=== PATIENT | male | born 1940 | race Caucasian/White ===

== ENCOUNTER 2023-12-14 08:51 | Outpatient (AMB) | payer MEDICARE, BC, SELFPAY ==
--- NOTE | 2023-12-14 08:56 | MHC.OFFVIS ---
Intake Visit Reasons: VANDA/UTI, reported BPH Intake Note: Patient is present for VANDA/UTI, Reported BPH Urology Medication:NONE Antibiotic Allergy:NONE Blood Thinner:NONE Hvac Sheet Metal Installer Helper Required: No Allergies No Known Allergies Allergy (Verified 12/14/23 08:57) HPI Comments Details: Ted is a pleasant male. He is a patient of Dr. Moran. He seen for the following urologic conditions - lower urinary tract symptoms In September was receiving chemotherapy had become dehydrated Presented to hospital with UTI Enterococcus This was treated responded well to antibiotics Currently with effective voiding performance Would like refill of medications which have previously includes finasteride and solifenacin UA today clear Lower urinary tract symptoms Combination of urinary frequency with weakness of stream Has responded well to combination of medications including finasteride and solifenacin for many years Review of Systems Const Denies chills and Denies fever(s) Card Reports no additional complaints and Denies syncope Resp Denies cough GI Denies abdominal pain and Denies heartburn Reports as per HPI and Denies change in libido Neuro Denies syncope Psych Denies change in libido Endo Denies change in libido Physical Exam Const General: cooperative, healthy appearing, comfortable and no acute distress Orientation/consciousness: patient oriented x3 HEENT Face and sinus: Yes normal facial exam Mouth: moist mucous membranes Neck Neck: Yes normal visual inspection, Yes full ROM and Yes trachea midline Chest Chest palpation & inspection: normal inspection of the chest Resp Effort & Inspection: normal respiratory effort, able to speak in complete sentences and no respiratory distress GI Inspection: Yes normal to inspection Back/Spine/Pelvis Cervical Spine: normal cervical lordosis Thoracic/Lumbar Spine: thoracic and lumbar spine normal to inspection Skin General skin exam: no rashes or lesions noted Neuro General: patient oriented x3, gait normal, tone normal and moves all extremities Extrem General: Yes normal to inspection and Yes capillary refill normal Results AMB Urinalysis, Automated UA Leukoctes 0 Oumar/uL Last Edit by JOESPH Salvador on 12/14/23 09:23 UA Nitrite Negative Last Edit by JOESPH Salvador on 12/14/23 09:23 UA Urobilinogen 0.2 mg/dL Last Edit by JOESPH Salvador on 12/14/23 09:23 UA Protein 0 mg/dL Last Edit by JOESPH Salvador on 12/14/23 09:23 UA pH 5.5 Last Edit by JOESPH Salvaodr on 12/14/23 09:23 UA Blood 10 Jackson/uL Last Edit by JOESPH Salvador on 12/14/23 09:23 UA Specific [place] 1.020 Last Edit by JOESPH Salvador on 12/14/23 09:23 UA Ketone Negative Last Edit by JOESPH Salvador on 12/14/23 09:23 UA Bilirubin 0 mg/dL Last Edit by JOESPH Salvador on 12/14/23 09:23 UA Glucose 0 mg/dL Last Edit by JOESPH Salvador on 12/14/23 09:23 Results Reviewed Results Reviewed: Laboratory Last Values Urine pH (Auto) 5.5 12/14/23 09:23 Specific [place] (Auto) 1.020 12/14/23 09:23 Urine Protein (Auto) 0 mg/dL 12/14/23 09:23 Glucose (UA)(Auto) 0 mg/dL 12/14/23 09:23 Urine Ketones (Auto) Negative 12/14/23 09:23 Urine Blood (Auto) 10 Jackson/uL 12/14/23 09:23 Urine Nitrite (Auto) Negative 12/14/23 09:23 Urine Bilirubin (Auto) 0 mg/dL 12/14/23 09:23 Urine Urobilinogen (Auto) 0.2 mg/dL 12/14/23 09:23 Leukocyte Esterase (Auto) 0 Oumar/uL 12/14/23 09:23 Assessment & Plan Assessment & Plan (1) Complicated urinary tract infection: Code(s): N39.0 - Urinary tract infection, site not specified Category: Medical (2) Incomplete emptying of bladder due to benign prostatic hyperplasia: Code(s): N40.1 - Benign prostatic hyperplasia with lower urinary tract symptoms; R33.9 - Retention of urine, unspecified Category: Medical Plan Medications refilled Continue yearly review Orders: Orders AMB Urinalysis Automated 12/14/23 Z13.9 - Encounter for screening, unspecified Medications: New finasteride 5 mg PO DAILY 90 days 90 tabs 1RF N13.8 - Other obstructive and reflux uropathy, N40.1 - Benign prostatic hyperplasia with lower urinary tract symptoms, R33.9 - Retention of urine, unspecified solifenacin 5 mg PO DAILY 90 days 90 tabs 1RF N32.81 - Overactive bladder, N40.1 - Benign prostatic hyperplasia with lower urinary tract symptoms, R33.9 - Retention of urine, unspecified Patient Instructions: Imaging studies, laboratory and physical exam results were discussed and reviewed in detail. No major barriers to patient understanding were identified. An opportunity to ask questions regarding the treatment plan was provided. All questions were answered. The patient expressed understanding and agreement with the above treatment plan. The patient is aware they should contact our office by phone for worsening of their current condition or the appearance of new urologic symptoms. Compliance is encouraged with any medications and followup testing that is ordered. It is a privilege to participate in the urologic care of your patient. If you have any questions or concerns regarding treatment for the above conditions, or other urologic issues, please do not hesitate to contact me. The office telephone contact is [phone]. This note is constructed using voice recognition software. While every effort has been made to ensure accuracy dupligraph operator errors may have been included. Yours sincerely, Dr Terrence Patino MD, N[facility] - Urology Providers of Expert, Compassionate Care for the Genitourinary System Coding Level of Care Code Est Pt Level 4 (45299) Diagnoses Complicated urinary tract infection N39.0 Incomplete emptying of bladder due to benign prostatic hyperplasia N40.1; R33.9
== END 2023-12-14 10:02 | disposition home or self-care (01) ==
PROVIDERS: PCP Internal Medicine; Visit Provider Urology
DX: N39.0 Urinary tract infection, site not specified (principal); N40.1 Benign prostatic hyperplasia with lower urinary tract symptoms; R33.9 Retention of urine, unspecified
CPT/HCPCS: 99214

== ENCOUNTER → 2023-12-14 08:51 | Outpatient (BNVA) | payer MEDICARE, BC, SELFPAY | PROVIDERS: PCP Internal Medicine; Visit Provider Urology | DX: N40.1 Benign prostatic hyperplasia with lower urinary tract symptoms (principal); R33.9 Retention of urine, unspecified; N39.0 Urinary tract infection, site not specified | CPT/HCPCS: 81003; 99212 ==

== ENCOUNTER 2024-12-12 10:37 | Outpatient (AMB) | payer MEDICARE, BC, SELFPAY ==
--- OUTSIDE RECORDS SUMMARY | 2016-03-03 06:45 | XMS_ITS | Continuity of Care Document ---
Author Organization [facility] Address [address] [facility] [address] [place] [address] Phone Care Team Providers Care Consultant Rn Name Role Phone Mau Carrasco MD Unavailable Unavailable Allergies, Adverse Reactions, Alerts Substance Reaction Status Criticality Sulfa (Sulfonamide Antibiotics) Active No Information morphine Active No Information Medications Medication Instructions Dosage Effective Dates (start - stop) Status Comments Aspir-81 81 mg tablet,delayed release take 1 tablet by oral route every day - Active naproxen 250 mg tablet take 1 tablet by oral route 2 times every day with food 250 MG - Active Norvasc 5 mg tablet take 1 tablet by oral route every day 5 MG - Active Neosporin (asj-xxp-bqoll) 3.5 mg-400 unit-5,000 unit/gram top ointment applies OTC eye laura to eye lids 1 - 2 times daily OU - Active finasteride 5 mg tablet take 1 tablet by oral route every day 5 MG - Active omeprazole 10 mg capsule,delayed release take 1 capsule by oral route every day before a meal 10 MG - Active niacin ER 125 mg capsule,extended release take 1 capsule by oral route 3 times every day with meals - Active Norvasc 5 mg tablet take 1 tablet by oral route every day 5 MG - No Longer Active Artificial Tears eye drops PRN - No Longer Active Optiflex Complete 750 mg-400 mg oral pack - No Longer Active Procedures Procedure Date Offic/outpt E&m Estab Low-mod 6 JAN RNFL/HRT Ophth Serv: Med Exam; Comp Est 16 Photography Visual Field Comp Photography Visual Field Comp Offic/outpt E&m Estab Low-mod 5 Photography Ophth Serv: Med Exam; Comp Est 15 <content ID='ProcedureDescri ption_10' xmlns='urn:hl7-org:v3'>Visual Field Exam W/i&r; Exten</content> Scanning Computerized Ophthalmic; Optic Nerve Offic/outpt E&m Estab Low-mod 4 Ophth Serv: Med Exam; Comp Est 14 Determ Refractive State Offic/outpt E&m Estab Low-mod 3 E-RX Generated Via E-Prescribing 2012 Scanning Computerized Ophthalmic; Optic Nerve Optic Nerve Head Eval Ophth Serv: Med Exam; Comp Est 13 <content ID='ProcedureDescri ption_20' xmlns='urn:hl7-org:v3'>Visual Field Exam W/i&r; Exten</content> Scanning Computerized Ophthalmic; Optic Nerve Offic/outpt E&m Estab Low-mod 3 Dilat Lacrimal Punctum W/wo Ir 12 Dilat Lacrimal Punctum W/wo Ir 12 Ophth Serv: Med Exam; Interm E 12 E-RX Generated Via E[facility]Prescribing 2011 Ophth Serv: Med Exam; Interm E 11 Ophth Serv: Med Exam; Interm E 11 Optic Nerve Head Eval Scanning Computerized Ophthalmic; Optic Nerve Echo Exam Of Eye, Thickness Ophth Serv: Med Exam; Comp New 11 Gonioscopy (separt Proc) Optic Nerve Head Eval Determ Refractive State Advance Directives Directive Yes / No Effective Date File Name No Information Encounters Encounter Description Practice Location Reason(s) For Visit Diagnoses Date Provider Providers Copied on Encounter Offic/outpt E&m Estab Low-mod [facility], [address], [place], [place], [id number] , tel:[phone] [facility] Ocular hypertension (chief complaint)Ble pharitis (chief complaint)Dis torted vision (chief complaint) Age-related nuclear cataract, left eyeOther secondary cataract, right eyeBenign neoplasm of left choroidOcular HTN of bilateral eyeBlepharitis of eyelid 6 Danilo León. [address], [place], [place], [id number], [place]. tel:[phone] Referring Provider: Mau Tee, [address] [place] [address], [address] . tel:[phone] [facility], [address] [place] [address], [place], [place], [id number] , tel:[phone] [facility] Ocular Hypertension (chief complaint)cru sting (chief complaint) Ocular hypertension, bilateral[facility] nuclear cataract, left eyeOther secondary cataract, right eyeBenign neoplasm of left choroidBlephariti s of eyelid 6 Danilo León. [address], [id number], . tel:[phone] Referring Provider: Mau Tee, [address] [place] [address], [address] . tel:[phone] [facility], [address] [place] [address], [place], [place], [id number] , tel:[phone] [facility] Disc Photos Only (chief complaint) Ocular hypertension, left eye 6 Danilo León. [address], [id number], . tel:[phone] Referring Provider: Mau Tee, [address], [address] . tel:[phone] Offic/outpt E&m Estab Low-mod [facility], [address] [place] [address], [id number] , tel:[phone] [facility] Ocular Hypertension (chief complaint) Ocular hypertension, left eyeBlepharitis of eyelidAge-related nuclear cataract, left eyeBenign neoplasm of left choroid 5 Danilo León. [address] [place] [address], [address] [place] [address], . tel:[phone] Referring Provider: Mau Tee, [address] [place] [address], [address] [place] [address] . tel:[phone] [facility], [address] [place] [address], [id number] , tel:[phone] [facility] IOP check (chief complaint)itc napoleon (chief complaint) NS - Nuclear sclerosisOHT - Ocular hypertension 5 Sarah Tee. [address] [place] [address], [address] [place] [address], . tel:[phone] Referring Provider: Randal Warren, [address] [place] [address], [address] . tel:[phone] [facility], [address] [place] [address], [id number] , tel:[phone] [facility] No Information 5 Sarah Tee. [address] [place] [address], [address] [place] [address], . tel:[phone] Referring Provider: Randal Warren, [address] [place] [address], [address] . tel:[phone] Offic/outpt E&m Estab Low-mod [facility], [address] [place] [address], [address] [place] [address] , tel:[phone] [facility] No Information 4 Sarah Tee. [address], [place], [address] [place] [address], . tel:[phone] Referring Provider: Randal Warren, [address] [place] [address], [place], [address] [place] [address] . tel:[phone] [facility], [address] [place] [address], [place], [address] [place] [address] , tel:[phone] [facility] No Information 4 Sarah Tee. [address], [place], [address] [place] [address], . tel:[phone] [facility], [address] [place] [address], [place], [address] [place] [address] , tel:[phone] [facility] No Information 4 Sarah Tee. [address] [place] [address], [address] [place] [address], . tel:[phone] Referring Provider: Randal Warren, [address] [place] [address], [place], [address] [place] [address] . tel:[phone] Offic/outpt E&m Estab Low-mod [facility], [address] [place] [address], [place], [address] [place] [address] , tel:[phone] [facility] No Information 3 Sarah Tee. [address] [place] [address], [address] [place] [address], . tel:[phone] Referring Provider: Randal Warren, [address] [place] [address], [address] [place] [address] . tel:[phone] [facility], [address] [place] [address], [place], [address] [place] [address] , tel: [phone] [facility] No Information 3 Sarah Tee. [address], [place], [address] [place] [address], . tel:[phone] Referring Provider: Randal Warren, [address], [place], [address] [place] [address] . tel:[phone] [facility], [address], [place], [address] [place] [address] , tel: [phone] [facility] No Information 3 Sarah Tee. [address], [place], [address] [place] [address], . tel:[phone] Referring Provider: Randal Warren, [address], [place], [address] [place] [address] . tel:[phone] [facility], [address], [place], [address] [place] [address] , tel: [phone] [facility] No Information 3 Sarah Tee. [address], [place], [address] [place] [address], . tel:[phone] Referring Provider: Randal Warren, [address], [place], [address] [place] [address] . tel:[phone] Offic/outpt E&m Estab Low-mod [facility], [address], [place], [address] [place] [address] , tel: [phone] [facility] No Information 3 Sarah Tee. [address], [place], [address] [place] [address], . tel:[phone] Referring Provider: Randal Warren, [address], [place], [address] [place] [address] . tel:[phone] [facility], [address] , [place], [address] [place] [address] , tel: [phone] [facility] No Information 2 Sarah Tee. [address] [facility], [place], [address] [place] [address], . tel:[phone] Referring Provider: Randal Warren, [address] , [place], [address] [place] [address] . tel:[phone] [facility], [address] [facility], [place], [address] [place] [address] , tel: [phone] [facility] No Information 2 Sarah Tee. [address] [facility], [place], [address] [place] [address], . tel:[phone] Referring Provider: Randal Warren, [address] [facility], [place], [address] [place] [address] . tel:[phone] [facility], [address] [facility], [place], [address] [place] [address] , tel: [phone] [facility] No Information [address] [facility], [place], [address] [place] [address], . tel:[phone] Referring Provider: Randal Warren, [address] [facility], [place], [address] [place] [address] . tel:[phone] [facility], [address] [facility] [address] , [place], [address] [place] [address] , tel: [phone] [facility] No Information 1 Sarah Tee. [address], [place], [address] [place] [address], . tel:[phone] Referring Provider: Randal Warren, [address] [facility] [address] , [place], [address] . tel:[phone] Jose Manuel, [address] [facility] [address] , [place], [place], [id number] , tel:[phone] [facility] No Information 1 Sarah Tee. [address] [facility] [address] , [place], [place], [id number], . tel:[phone] Referring Provider: Hood Monahan, [address] [facility], [place], [address]. tel:[phone] Family History Family Member Type Diagnosis Age At Onset Mother Problem (finding) breast cancer (Cause Of ) Sister Problem (finding) degenerative disorder o f macula Father Problem (finding) chronic obstru ctive lung disease (Cause Of ) Payers Payer name Insurance type Covered constitution party ID Authoriza tion(s) Medicare [id number] [facility] [employer] [id number] Social History Type Description Quantity Date Captured Comments Alcohol Use Details 1 drink socially 6 Caffeine Use Details Unknown Tobacco Use Status Ex-cigarette smoker 016 Smoking Status Former smoker Smoking Tobacco Use Details Cigarette: Age Stopped: 37, Years Used 20 Cigarette: No Details Available Sex Male Chief Complaint And Reason For Visit From encounter dated '03/03/2016 10:45'. Ocular hypertension (chief complaint). Description: Patient presents for 8 month follow up secondary to ocular hypertension, OU with OCT RNFL today. He denies changes in vision since his last visit. He denies pain or discomfort. He denies family history of glaucoma. He used to be on dorzolamide perDr. Smith, but he is not using it anymore. Blepharitis (chief complaint). Description: The patient presents for 8 month follow up of Blepharitis, OU. He reports that he still wakes up with crusty eyelids. [place] He uses hot compresses in the mornings and rubs it off. He uses artificial tears to wash out a film that comes over his eyes. He also uses a saline wash to wash out his eyes. He denies pain or discomfort. Distorted vision (chief complaint). Description: The patient presents for evaluation of Distorted vision, OU. He reports that very rarely, he will see a wrinkle that goes across hisvision then it goes away. He reports that he has a headache but then he drinks fluid with some relief. He reports a history of an illistomy in 1979. Reason For Referral Reason For Referral No Information Plan Of Treatment Date Type Action Status Patient Education Learning About Ocular H ypertension completed History Of Present Illness Encounter Date Complaint History Of Prese nt Illness Distorted vision The patient pre sents for evaluation of Distorted vision, OU. He reports that very rarely, he will see a wrinkle that goes across his vision then it goes away. He reports that he has a headache but then he drinks fluid with some relief. He reports a history of an illistomy in 1979. Blepharitis The patient pres ents for 8 month follow up of Blepharitis, OU. He reports that he still wakes up with crusty eyelids. He [place] He uses hot compresses in the mornings and rubs it off. He uses artificial tears to wash out a film that comes over his eyes. He also uses a saline wash to wash out his eyes. He denies pain or discomfort. Ocular hypertension Patient pres ents for 8 month follow up secondary to ocular hypertension, OU with OCT RNFL today. He denies changes in vision since his last visit. He denies pain or discomfort. He denies family history of glaucoma. He used to be on dorzolamide per Dr. Smith, but he is not using it anymore. Ocular Hypertension The 74 year old male presents for 4 month evaluation of Ocular Hypertension in the left eye. 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 He is not currently using any eye drops other than an occasional tear drop. crusting The patient pres ents for evaluation of crusting in the right eye and left eye. The crustiness is worse at night when patient is watching television but it occurs all day. Patient also has mild itching. It is worse when patient is in [place] as opposed to up [place]. Washing with a soft toothbrush and warm water rinse helps. Disc Photos Only Ocular Hypertension The 74 year old male presents for a transfer of care from Dr. Smith secondary to Ocular Hypertension, left eye. The patient has no family history of glaucoma, not currently on any drops for glaucoma. Per patient, bad reaction to any drops with steroids in them, states that it caused a increase in pressure in the eyes. Reports that he is still having trouble with mucus on his eyelashes that comes and goes through out the day. Uses shampoo and warm water many times in the morning, but it keeps coming back. The mucus is sometimes like a white color. Some itching but not too bad, has history of hay fever. 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 HISTORY OF BLEPHARITIS FOR MANY YEARS. PATIENT STATES THAT HE CONTINUES TO CLEAN THE LIDS WITH SHAMPOO BUT NOT SURE IT IS HELPING. HVF AND OCT REVIEW itching The patient pres ents for evaluation of itching in the right eye and left eye. It started about 1-2 year(s) ago. It occurs intermittent. The symptom is no pattern. The condition is moderate. Known case of Blepharitis OU Functional Status Date Functional Assessmen t No Information Instructions Date Instruction Additional Infor arturo Return in 5-[address] Mau Carrasco for glaucoma check with an HVF and disc photos 1 week before. CPT code today 72341 Related to Ocular HTN of bilateral eye Impression/Plan - C ataracts noted left eye. At this time patient is asymptomatic, Monitor for vision changes. Recommend patient wear sunglasses with ultra edmond protection when outdoors. Continue with present prescription glasses, no change. Related to Age-related nuclear cataract, left eye Impression/Plan - S table at this time. No change from photos, continue to monitor. 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 Recommend patient wear sunglasses with ultra edmond protection when outdoors. Continue with present reading glasses, no change. Related to Other secondary cataract, right eye Impression/Plan - A pply hot compresses each night and scrub lashes after compress three times a week. Related to Blepharitis of eyelid Impression/Plan - Explained Ocular Hypertension to patient and the importance of follow up. No treatment necessary at this time. Related to Ocular HTN of bilateral eye Follow up - Return in 5-[address] Mau Carrasco for glaucoma check with an HVF and disc photos 1 week before. CPT code today 21097 Related to Ocular HTN of bilateral eye Return in 5-[address] Mau Carrasco for glaucoma check and OCT RNFL. 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 Related to Other secondary cataract, right eye Impression/Plan - A pply hot compresses each night and scrub lashes after compress three times a week. Gave patient name of Cliradex to try. Patient states in the past draining system has been occluded. He has had past irrigations of nasal lacrimal duct where very little fluid was swallowed. Gave patient name of Taiwo Barry [facility] if patient interested in further evaluation with possible DCR. Related to Blepharitis of eyelid Impression/Plan - C ataracts noted. At this time patient is asymptomatic, Monitor for vision changes. Related to Age-related nuclear cataract, left eye Impression/Plan - E xplained ocular hypertension and importance of follow up. No treatment necessary at this time. Related to Ocular hypertension, bilateral Follow up - Return in 5-[address] Mau Carrasco for glaucoma check and OCT RNFL. EEL cpt 68811 today Related to Ocular hypertension, bilateral Return in 5-[address] Mau Carrasco for glaucoma check with an HVF and disc photos 1 week before. 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 Mau Carrasco for glaucoma check with an HVF and disc photos 1 week before. EEL cpt 69909 today Related to Ocular hypertension, left eye Impression/Plan - A pply hot compresses each night and scrub lashes after compress three times a week. Start: Azasite 1 drop twice a day x 3 days then once a day x 5 days both eyes. Related to Blepharitis of eyelid Impression/Plan - C ataracts noted. At this time patient is asymptomatic, Monitor for vision changes. Related to Age-related nuclear cataract, left eye Impression/Plan - IOP ok today, high normal left eye. No treatment needed at this time. Related to Ocular hypertension, left eye - Review of recent O CT was unreliable. HVF appears to be stable and normal. In light, no need to treat. Related to OHT - Ocular hypertension - observe Related to NS - Nuclear sclerosis - Return in 7 months with Sarah JOHNSON, M B for Established Patient Short TC and gonio. Get cirrus OCT ou one week prior. Related to OHT - Ocular hypertension Assessments Type Assessment Date assessment Age-related nuclear cataract, le ft eye assessment Other secondary cataract, right eye assessment Benign neoplasm of left choroid assessment Ocular HTN of bilateral eye impression Ocular HTN of bilateral eye: H40 .053 impression Age-related nuclear cataract, le ft eye: H25.12 impression Other secondary cataract, right eye: H26.491 0 impression Benign neoplasm of left choroid: D31.32 assessment Blepharitis of eyelid 6 impression Blepharitis of eyelid: H01.009 O U Patient Care Teams Name Effective Dates (start - stop) Status Members No Information
--- OUTSIDE RECORDS SUMMARY | 2024-07-10 06:15 | XMS_ITS ---
Author Organization [facility] Address [address] [address] Care Team Providers Care Door Opener Name Role Phone Luisa JONHSON, Leila Primary Care Provider Arias Galvan Unavailable [phone] REASON FOR VISIT Ostomy follow up Encounters Encounter Location Date Provider Diagnosis [facility] [address] [place] [address] 07/10/2024 Arias Perez Plan Of Treatment No Information Progress Notes * Jose PALAFOXotisDOB: [birth year] (84 yo M)Acc No.[id number]:07/10/2024 Ostomy Follow-Up Visit Patient: Ted WEI Provider: Joseph Perez MD, MSc, CWSP :1940 A ge:83 Y S ex:Male Date:07/10/2024 Address:[address] [place], [place] [id number] Pcp:Leila Moran MD Subjective: * Chief Complaints: * 1 . Ostomy follow up. * Medical History: Objective: * Vitals: Assessment: Plan: * Treatment: * Billing Information: * Visit Code: * Procedure Codes: * Electronic signature of Kamilla Perez MD on 12/12/2024 at 11:28 AM EDT Sign off status: Pending * Provider: Joseph Perez MD, MSc, CWSP Date: 07/10/2024 Generated for Mauro reynolds/Corbin/eTransmitting on: 12/12/2024 11:28 AM EDT
--- OUTSIDE RECORDS SUMMARY | 2024-12-07 13:45 | XMS_ITS | Encounter Summary ---
Author Organization [facility] Address [address] [place] [address] Phone Care Team Providers Care Painter Aircraft Name Role Phone Leila Moran MD Primary Care Provider [phone] Pedro Paez MD Unavailable [phone] Alley Nguyen CNP Unavailable Reason for Visit * Reason Comments Exercise CR Assessment Encounter Details Date Type Department Care Team (Latest Contact Info) Description 12/07/2024 1:45 PM EDT Office Visit [facility] [address] [place] [address] Armand Fonseca MD [address] [facility], [address] [place] [address] [email or web address] Stable angina (Primary Dx) Social History Tobacco Use Types Packs/Day Years Used Date Smoking Tobacco: Former Cigarettes - 1979 Smokeless Tobacco: Never Alcohol Use Standard Drinks/Week Comments Yes 0 (1 standard drink = 0.6 oz pur e alcohol) Very rare social drinking Education Answer Date Recorded Are you interested in more education? Not on aletha e 08/14/2022 Are you concerned about learning? Not on file 08/14/2022 No 08/14/2022 No 08/14/2022 Food Answer Date Recorded Within the past 6 months we worried whether our food would run out before we got money to buy more. Never True 10/06/2023 Within the past 6 months the food we bought just didn't last and we didn't have enough money to get more. Never True Residential Stability Answer Date Recor ded What is your housing situation today? I have elizabeth sing 10/06/2023 How many times have you move d in the past 12 months? Zero (I did not move) 10/06/2023 Paying Utility Bills Answer Date Record ed Do you have trouble paying your heating or elect ricity bill? No 10/06/2023 Transportation Answer Date Recorded Has the lack of transportati on kept you from medical appointments or from getting medications? No 10/06/2023 Digital Access Answer Date Recorded No 10/06/2023 Yes 10/06/2023 Reliable internet access at home? Not on file 10/06/2023 Do you have a device (e.g., phone, tablet, computer) with a working camera? Yes 10/06/2023 Intimate Partner Violence Answer Date R ecorded Are you denied basic needs s uch as food, clothing, or medical care? No 04/12/2024 In the past 12 months have y ou been in a relationship with a person who hurts, threatens, or tries to control you? No 04/12/2024 Are you denied basic needs s uch as food, clothing, or medical care? No 04/12/2024 In the past 12 months have y ou been in a relationship with a person who hurts, threatens, or tries to control you? 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 Overall, this patient has completed 36 sessions. On the first session, this patient's weight was 185 Ibs, and most recently weights 182 Ibs. On the first exercise session, resting HR was 73 bpm, and most recently is 68 bpm. The resting BP on the first visit was 150/66 mm Hg, and is most recently 150/50 mm Hg. With exercise, the peak exercise HR was 89 and is most recently 82 bpm. The peak exercise BP on the first session was 140/60 mm Hg, and is most recently 138/60 mm Hg. The aerobic exercise prescription for this patient on the first session was 1.9 METs, and is most recently 3.9 METs. The resting monitor rhythm is SR w/ PACs. Overall, Ted did very well in our Cardiopulmonary Rehabilitation program. After he completes hiscardiac rehab sessions, he plans to continue his at home routine and plans to attend the gym. Ted states he continues to practice mindful eating, has a great social support, and practices his relaxation techniques o a regular basis. It was a pleasure working with Ted, we wish him all the best. If you have any questions, please call [facility] program at . documented in this encounter Plan of Treatment Upcoming Encounters Date Type Department Care Team (Late st Contact Info) Description 01/22/2025 3:30 PM EDT Office Visit [facility] [address] [facility] 3rd Floor, [address] [place] [address] Karie Seals PA-C [address] [place] [address] 02/15/2025 2:00 PM EDT Appointment [facility] [address] [place] [address] Pedro Paez MD [address] [place] [address] 02/15/2025 3:00 PM EDT Office Visit [facility] [address] [place] [address] Pedro Paez MD [address] [place] [address] [email or web address] documented as of this encounter Visit Diagnoses Diagnosis Stable angina- Primary Other and unspecified angina pectoris documented in this encounter Additional Health Concerns Assessment Noted Time PHQ-9 Depression Total Score: 3 06/08/19 25 2:22 PM EST documented as of this encounter Care Teams Painter Aircraft Relationship Specialty Start Date End Date Leila Moran MD [address] [place] [id number] PCP - General 04/22/17 Pedro Paez MD [address] [place] [address] Primary Oncologist Medical Oncology 07/08/20 Alley Nguyen CNP [address] [place] [address] Nurse Practitioner Oncology 06/18/21 documented as of this encounter Additional Source Comments The information contained in this document represents components of the legal health record. It is not the complete legal health record.[facility]
--- NOTE | 2024-12-12 10:59 | A.OFFVIS_ITS ---
Intake Visit Reasons: 1yr F/U Intake Note: Patient is present for: follow up Urology Medication:finasteride, solifenacin Blood Thinner:NONE today's pvr: 35 mls Meter Attendant Required: No Accompanied by: Self / Same As Patient Allergies No Known Allergies Allergy (Verified 12/12/24 11:00) HPI Comments Details: Ted is a pleasant male. He is a patient of Dr. Moran. He seen for the following urologic conditions - lower urinary tract symptoms Yearly follow-up Continues with combination finasteride and solifenacin Cut back finasteride to Wednesday, Wednesday, Wednesday Discussed solifenacin Still has some mild urinary urgency and frequency Trial 10 mg solifenacin March 2024 myocardial infarction with stenting September 2023 was receiving chemotherapy had become dehydrated Presented to hospital with UTI Enterococcus - responded to antibiotics Would like refill of medications which have previously includes finasteride and solifenacin Lower urinary tract symptoms Combination of urinary frequency with weakness of stream Has responded well to combination of medications including finasteride and solifenacin for many years Retired nurse Spent six-month in [place] Review of Systems Const Denies chills and Denies fever(s) Card Reports no additional complaints and Denies syncope Resp Denies cough GI Denies abdominal pain and Denies heartburn Reports as per HPI and Denies change in libido Neuro Denies syncope Psych Denies change in libido Endo Denies change in libido Physical Exam Const General: cooperative, healthy appearing, comfortable and no acute distress Orientation/consciousness: patient oriented x3 HEENT Face and sinus: Yes normal facial exam Mouth: moist mucous membranes Neck Neck: Yes normal visual inspection, Yes full ROM and Yes trachea midline Chest Chest palpation & inspection: normal inspection of the chest Resp Effort & Inspection: normal respiratory effort, able to speak in complete sentences and no respiratory distress GI Inspection: Yes normal to inspection Back/Spine/Pelvis Cervical Spine: normal cervical lordosis Thoracic/Lumbar Spine: thoracic and lumbar spine normal to inspection Skin General skin exam: no rashes or lesions noted Neuro General: patient oriented x3, gait normal, tone normal and moves all extremities Extrem General: Yes normal to inspection and Yes capillary refill normal Office Procedures Post Void Residual Post Residual Void Post Void Residual (PVR): 35 [id number] Void Residual by ultrasound Results AMB Urinalysis, Automated UA Leukoctes 0 Oumar/uL Last Edit by JOESPH Reeves on 12/12/24 11:21 UA Nitrite Negative Last Edit by Luzmaria Patrick [facility] on 12/12/24 11:21 UA Urobilinogen 0.2 mg/dL Last Edit by Luzmaria Patrick [facility] on 12/12/24 11:2 1 UA Protein 0 mg/dL Last Edit by Luzmaria [facility] on 12/12/24 11:21 UA pH 5.5 Last Edit by Luzmaria Patrick [facility] on 12/12/24 11:21 UA Blood 0 Jackson/uL Last Edit by Luzmaria Patrick [facility] on 12/12/24 11:21 UA Specific [place] 1.025 Last Edit by Luzmaria Patrick [facility] on 12/12/24 11: 21 UA Ketone Negative Last Edit by Luzmaria Patrick [facility] on 12/12/24 11:21 UA Bilirubin 0 mg/dL Last Edit by Luzmaira Patrick [facility] on 12/12/24 11:21 UA Glucose 0 mg/dL Last Edit by Luzmaria Patrick [facility] on 12/12/24 11:21 Results Reviewed Results Reviewed: Laboratory Last Values Urine pH (Auto) 5.5 12/12/24 11:20 Specific [place] (Auto) 1.025 12/12/24 11:20 Urine Protein (Auto) 0 mg/dL 12/12/24 11:20 Glucose (UA)(Auto) 0 mg/dL 12/12/24 11:20 Urine Ketones (Auto) Negative 12/12/24 11:20 Urine Blood (Auto) 0 Jackson/uL 12/12/24 11:20 Urine Nitrite (Auto) Negative 12/12/24 11:20 Urine Bilirubin (Auto) 0 mg/dL 12/12/24 11:20 Urine Urobilinogen (Auto) 0.2 mg/dL 12/12/24 11:20 Leukocyte Esterase (Auto) 0 Oumar/uL 12/12/24 11:20 Assessment & Plan Assessment & Plan (1) Incomplete emptying of bladder due to benign prostatic hyperplasia: Code(s): N40.1 - Benign prostatic hyperplasia with lower urinary tract symptoms; R33.9 - Retention of urine, unspecified Category: Medical (2) Bladder instability: Code(s): N32.89 - Other specified disorders of bladder Category: Medical Plan Twelve month follow-up Orders: Orders AMB Urinalysis Automated Today Z13.9 - Encounter for screening, unspecified AMB Post Void Residual by ultrasound Today N40.1 - Benign prostatic hyperplasia with lower urinary tract symptoms, R33.9 - Retention of urine, unspecified PSA,Total (Free>4and<10) Today N40.1 - Benign prostatic hyperplasia with lower urinary tract symptoms, R33.9 - Retention of urine, unspecified Medications: Changed From solifenacin 5 mg PO DAILY 90 days 90 tabs 1RF N32.81 - Overactive bladder To solifenacin 10 mg PO DAILY 30 tabs 0RF 30 days N32.81 - Overactive bladder Refilled finasteride 5 mg PO DAILY 90 tabs 1RF 90 days N13.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 While every effort has been made to ensure accuracy customer success intern errors may have been included. Imaging studies, laboratory and physical exam results were discussed and rev iewed in detail. No major barriers to patient understanding were identified. An opportunity to ask questions regarding the treatment plan was provided. All questions were answered. The patient expressed understanding and agreement with the above treatment plan. The patient is aware they should contact our office by phone for worsening of their current condition or the appearance of new urologic symptoms. Compliance is encouraged with any medications and followup testing that is ordered. It is a privilege to participate in the urologic care of your patient. If you have any questions or concerns regarding treatment for the above conditions, or other urologic issues, please do not hesitate to contact me. The office telephone contact is [phone]. Sincerely, Dr Terrence Patino MD, NIL[facility] - Urology Compassionate Specialist Care for the Genitourinary System Coding Level of Care Code Est Pt Level 4 (35446) Complex EM visit Add On G2211 Diagnoses Incomplete emptying of bladder due to benign prostatic hyperplasia N40.1; R33.9 Bladder instability N32.89 CPT Codes Post Residual Void - PVR CPT Code: 60121-Nkrt Void Residual by ultrasound ([id number])
--- OUTSIDE RECORDS SUMMARY | 2024-12-12 11:26 | XMS_ITS | Encounter Summary ---
Author Organization [facility] Address [address] [place] [address] [place] [address] Phone Care Team Providers Care Instant Potato Processing Supervisor Name Role Phone Leila Moran MD Primary Care Provider Pedro Paez MD Unavailable [phone] Alley Nguyen CNP Unavailable Encounter Details Date Type Department Care Team (Late st Contact Info) Description 06/24/2021 Procedure Pass [facility] [address] [place], [place] [id number] Social History Tobacco Use Types Packs/Day Years Used Date Smoking Tobacco: Former Cigarettes 1 968 - 1979 Smokeless Tobacco: Never Alcohol Use Standard Drinks/Week Comments Not Currently 0 (1 standard drink = 0.6 oz pur e alcohol) Sex and Gender Information Value Date Recorded Sex Assigned at Male 02/21/2019 3:23 PM EST Legal Sex Male 10:13 PM EDT Gender Identity Male 02/21/2019 3:23 PM EST Sexual Orientation Straight 02/21/2019 3: 23 PM EST documented as of this encounter Plan of Treatment Upcoming Encounters Date Type Department Care Team (Late st Contact Info) Description 01/22/2025 3:30 PM EDT Office Visit [facility] [address] [place] [address] [address] Floor, [address] [place] [address] Karie Seals PA-C [address] [place] [address] 02/15/2025 2:00 PM EDT Appointment [facility] [address] [place] [address] Pedro Paez MD [address] [place] [address] 02/15/2025 3:00 PM EDT Office Visit [facility] [address] [place] [address] Pedro Paez MD [address] [place] [phone] documented as of this encounter Visit Diagnoses Not on filedocumented in this encounter Additional Health Concerns Infection Onset Date Last Indicated Resolved Time CDiff-Risk 10/06/2023 10/06/2023 10/06/2023 5:43 PM EDT CoV-Risk 11/14/2024 11/14/2024 11/25/2024 1:21 AM EDT documented as of this encounter Care Teams Instant Potato Processing Supervisor Relationship Specialty Start Date End Date Leila Moran MD [address] [place] [phone] [email or web address] PCP - General 04/22/17 Pedro Paez MD [address] [place] [address] Primary Oncologist Medical Oncology 07/08/20 Alley Nguyen CNP [address] [place] [address] Nurse Practitioner Oncology 06/18/21 documented as of this encounter Additional Source Comments The information contained in this document represents components of the legal health record. It is not the complete legal health record.[facility]
--- OUTSIDE RECORDS SUMMARY | 2024-12-12 11:26 | XMS_ITS | Encounter Summary ---
Author Organization [facility] Address [address] [place] [id number] Phone Care Team Providers Care Glass Glazier Name Role Phone Leila Moran MD Primary Care Provider Pedro Paez MD Unavailable [phone] Alley Nguyen CNP Unavailable Encounter Details Date Type Department Care Team (Latest Contact Info) Description 12/07/2024 Plan of Care Documentation [facility] [address] [place] [address] Social History Tobacco Use Types Packs/Day Years Used Date Smoking Tobacco: Former Cigarettes 1 8 - 1979 Smokeless Tobacco: Never Alcohol Use [...] your housing situation today? I have elizabeth trevino 10/06/2023 How many times have you move [...] on file documented as of this encounter Miscellaneous Notes * Outpatient Rehab Plan of [place] - Carolina Hernandez - 12/07/2024 2:12 PM EDT Discharge Individualized Treatment Plan - Cardiac Rehabilitation Today is Ted's discharge ITP. Overall, this [...] [facility] at . Exercise Assessment ITP: Exit/Discharge Diagnosis: stable angina DASI Score: 23.45 (5.62 mets) Minutes/Week of Exercise : 120 Risk Stratification: Moderate Number of Telemetry Sessions: 36 Exercise Plan Exercise Goals Self monitor target heart rate range/RPE; Aerobic exercise 30+minutes more than or equal to 5 days/week; Begin home exercise program; Attend cardiac rehab session at least 2x/week; Increased MET level; Decreased RPE at sub-max exercise capacity; Verbalize understanding of safe exercise parameters Interventions Exercise Prescription Mode: NuStep; Recumbent Bicycle; Treadmill; Upper Body Ergometer Frequency: 2 days/week Duration: 30-40 mins Intensity: moderate Target HR Range: 30-40 beats above rest Target METs Range: 3-5 Resistance Training: Lower Extremities Exercise Education Home Exercise Education; Exercise Safety; Understanding RPE scale; Signs and symptoms to report; Attend formal education classes Exercise Discharge/Follow-Up Self monitor target heart rate range/RPE: Goal met Aerobic exercise 30+minutes >=5 days/week: Goal met (walking dog 2x per day, active through car work and yardwork, will plan to go to the gym) Resistance 20 minutes 2 days/week: Not met Continue home exercise program: Goal met Attended cardiac rehab session at least 2x/week: Goal met Increased MET level : Goal met (1.9 - 3.9) Verbalize understanding of safe exercise parameters: Goal met Nutrition Assessment Height: 165.1 cm (5' 5 ) Weight: 83.9 kg (185 lb) BMI: 30.79 Alcohol Intake: None Sodium restriction: No (does not monitor sodium but says he does not use a lot of salt) Caffeine Intake: 2 cups coffee/day, ice tea, some soda Rate Your Plate- Heart score: 5 (medieterranean diet) Nutrition Plan Nutrition Goals Sodium restriction (specify); Demonstrates adherence to the Therapeutic Lifestyle Change diet; Demonstrates adherence to DASH diet Interventions Individual consultation with bail bondsman; Monitor weight weekly; Provide guidelines per diet recommendation Education Medication education; DASH diet; Therapeutic Lifestyle Change diet; Attend formal education classes; Label reading Nutrition Discharge/Follow-Up Sodium restriction: Goal met Alcohol intake per guidelines: Goal met (none) Demonstrates adherence to the Therapeutic Lifestyle Change diet: Goal met (does not follow specificdiet, practices mindful eating) Psychosocial Assessment PHQ-9 Score: 3 [facility] Quality of Life: 22 Social Support: Yes (sister) Social Isolation: -- (to some degree. his only support person is his sister who visits him every wednesday to cook for him and do some house cleaning) Counseling: Past Counseling Helpful: Yes Currently taking psychiatric medications: Yes (prn Lorazepam) Sleep Routine: Rested (sleeps 1am-8am for many years and feels rested when he wakes up) Psychosocial Plan Psychosocial Goals Utilizes therapeutic coping skills; Reports increased social support; Identify barriers to change; Verbalizes awareness of the relationship between stress and CAD; Attends stress management class(es); Identifies individual stressors and stress warning signs; Practices regular relaxation technique 10-20 minutes 3-5 times/week minimum, working toward a daily practice; Improve or maintain mental health score(s) Interventions Review sleep hygiene skills; Provide one-on-one psychosocial support; Provide individual coaching/psychosocial support to patients to assist in lifestyle change Education Relaxation Strategies; Effective Communication Skills Psychosocial Discharge/Follow-up Utilizes therapeutic coping skills: Goal met (chores around the house, watching tv, antique car collection, car shows, sitting in the recliner) Reports increased social support: Goal met (lots of friends, family) Verbalizes feeling less stressed: Goal met (low stress) Verbalizes improved sleep: Goal met (falls asleep in recliner, gets up to go to bed after a few hours. feels rested in the morning) Hypertension Assessment Hypertension: Yes Blood pressure medication(s): Yes Self-monitor blood pressure: Yes Current smoker: No Overweight: Yes Stress: Yes Current BP: 120/60 Current HR: 68 Hypertension Plan Hypertension Goals Self-monitor home blood pressure and record readings; Compliant taking blood pressure medication asdirected; Goal SBP <130 mmHg and DBP <80mmHg; Verbalizes understanding of hypertension and plan to lower BP; Verbalizes awareness of relationship between stress and hypertension; Follow DASH diet guidelines; Reduce sodium intake to <2400 mg/day, ideally 1500 mg/day is desirable; Exercise minimum 5 times/week for 30 minutes or more per session at moderate intensity of physical activity Interventions Keep a weekly home blood pressure readings record; Monitor weight at home; Counseled in specific ways to better manage stress including regular relaxation techniques, cognitive skills, and effective communication skills Education Hypertension Education Hypertension education; Patient instructed on how to monitor home blood pressure; Attend classes onStress Management Hypertension Discharge/Follow-Up Self-monitor home blood pressure and record readings: Goal met Goal SBP <130 mmHg and DBP <80mmHg: Not met Medication Assessment Medication administration system: Yes Adheres to prescribed medication plan: Yes Has understanding of prescribed medications: Yes Carries a medication list: Yes Is the patient on Max dose high intensity statins: No (40mh Lipitor prescribed by MD) Medication Plan Medication Goals Patient has a medication administration system; Adheres to prescribed medication plan; Understands information about all prescribed medications; Carries a medication list Interventions Complete medication reconciliation with patient; Review system for taking medications; Provide updated medication list; Communicate with MD for medication adjustment Education Provide written information on specific medications Medication Discharge/Follow-Up Patient has a medication administration system : Goal met (uses pill box, works well) Adheres to prescribed medication plan: Goal met Understands information about all prescribed medications : Goal met Carries a medication list : Goal met PROVIDER ATTESTATION I have reviewed and agree with the Individual treatment Plan: goals/progress/outcomes. documented in this encounter Plan of Treatment Upcoming Encounters Date Type Department Care Team (Jennifer farah Contact Info) Description 01/22/2025 3:30 PM EDT Office Visit [facility] [address] [place] [address] [address] Floor, [address] [place] [address] Karie Seals PA-C [address] [place] [address] 02/15/2025 2:00 PM EDT Appointment [facility] [address] [place] [address] Pedro Paez MD [address] [place] [address] 02/15/2025 3:00 PM EDT Office Visit [facility] [address] [place] [address] Pedro Paez MD [address] [place] [phone] documented as of this encounter Visit Diagnoses Not on filedocumented in this encounter Additional Health Concerns Assessment Noted Time PHQ-9 Depression Total Score: 3 06/08/19 25 2:22 PM EST documented as of this encounter Care Teams Glass Glazier Relationship Specialty Start Date End Date Leila Moran MD [address] [place] [phone] PCP - General 04/22/17 Pedro Paez MD [address] [place] [phone] Primary Oncologist Medical Oncology 07/08/20 Alley Nguyen CNP [address] [place] [id number] Nurse Practitioner Oncology 06/18/21 documented as of this encounter Additional Source Comments The information contained in this document represents components of the legal health record. It is not the complete legal health record.[facility]
--- OUTSIDE RECORDS SUMMARY | 2024-12-12 11:26 | XMS_ITS | Clinical Summary ---
Author Organization [facility] Address [address] [place] [phone] Phone Care Team Providers Care Manager Product Marketing Name Role Phone Leila Moran MD Primary Care Provider [phone] Pedro Paez MD Unavailable [phone] Alley Nguyen CNP Unavailable Allergies Active Allergy Reactions Criticality Noted Date Comments Morphine Other (See Comments),Rash Low 11/19/2014 Hallucinations Delusions Other 12/29/2019 Steroids elevate his glaucoma Sulfa (Sulfonamide Antibiotics) Nausea and/or Vomiting 08/02/2014 Medications niacin 500 MG CR capsule Take 1 capsule by mouth daily. Active finasteride (PROSCAR) 5 mg tablet Take 1 tablet by mouth daily. 1 Active solifenacin (VESICARE) 10 MG tablet Take 1 tablet by mouth every morning. 3 Active omeprazole (PRILOSEC) 20 mg TbEC Take 20 mg by mouth daily before breakfast. Active aspirin 81 MG EC tablet Take 81 mg by mouth daily. Active atorvastatin (LIPITOR) 40 MG tablet Take 40 mg by mouth nightly at bedtime. 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 4 Active Additional Information Patient taking differently: 0.5 mgOral Nightly PRN, severe nausea not relieved by zofran; insomnia; anxiety, Reported on 05/15/2024 metoprolol succinate (TOPROL-XL) 50 MG 24 hr tablet Take 1 tablet (50 mg total) by mouth daily. Takes along with 25 mg daily for 75 mg altogether 90 tablet 3 5 Active metoprolol succinate (TOPROL-XL) 25 MG 24 hr tablet Take 1 tablet (25 mg total) by mouth every morning. Takes along with 50 mg daily for 75 mg altogether 90 tablet 3 5 Active clopidogrel (PLAVIX) 75 mg tablet Take 1 tablet (75 mg total) by mouth daily. 90 tablet 3 5 Active amLODIPine (NORVASC) 5 MG tabletIndications :Essential hypertension TAKE 1 TABLET (5 MG TOTAL) BY MOUTH DAILY. 90 tablet 3 5 Active Active Problems Patient Care Coordination No te Formatting of this note migh t be different from the original. Height 164cm no shoes 09/08/22 CALL PT SISTER IF YOU CANNOT REACH THE PATIENT Problem Noted Date Diagnosed Date Chest pain 04/12/2024 Assessment & Plan (04/12/2024 7:04 PM EST): History of coronary disease, history of prior MN and angioplasty in [place], follows as an outpatient with Dr. Fonseca. Previously with stable angina, now becoming more severe. ED workup shows mild proBNP elevation 869, age appropriate, troponins elevated but flat 43 and 45. EKG notable for anteroseptal inferior infarct pattern, question of lateral ischemia with nonspecific ST-T changes small depressions V4- V6 with small anterior elevations. Case was discussed with cardiology with plan for observation on telemetry tonight with stress testing in the morning. Cardiology consult will be arranged. Defer to cardiology if additional imaging is needed. Will monitor I's and O's, electrolytes and renal function, daily weights. Conditional EKG ordered for any chest pain. Nitropaste ordered with patient hypertensive in the ED. Hypomagnesemia 10/07/2023 Assessment & Plan (10/07/2023 1:37 PM EDT): Magnesium 1.6 on admission drifted down to 1.5 today. Old records reveal the patient has had low normal magnesium since 2020 was down to 1.3 Likely dietary deficiency. -Replenished with magnesium times IV x 1. -Start oral magnesium 400 mg daily - Repeat magnesium levels in AM. VANDA (acute kidney injury) 10/06/2023 Assessment & Plan (10/07/2023 1:31 PM EDT): Pt presented to the ED on 10/04 sent by his oncologist for abnormal labs, signed out AMA to take care of his dog and then returned 10/05. - Cr peak 2.8, now trending down - Pt endorses recent increased output from ileostomy over the past 1-2 weeks, likely dehydration contributing to VANDA. - ARB also contributing pt was started on Losartan 50 mg daily 04/2023, now discontinued - On prior labs baseline Cr 0.9-1.2 Creatinine improved to 1.8 today Renal ultrasound no hydronephrosis or renal atrophy. Nonobstructing left renal calculi. Bilateral renal cysts. -Continue gentle IV hydration -Repeat renal labs in a.m. Hyperkalemia 10/06/2023 Assessment & Plan (10/07/2023 1:32 PM EDT): K 6.6, pt sent to the ED received Lokelma and 1 L 0.9% NS. Revealed normal sinus rhythm. Telemetry with normal sinus rhythm no arrhythmias. - Repeat K improved to 5.8, and has now normalized to 4.1 with IV fluids and discontinuation of losartan. -Continue off of losartan. -Repeat electrolytes in a.m. -DC telemetry Coronary artery disease 10/06/2023 Assessment & Plan (05/15/2024 4:59 PM EST): cardiac catheter[place]09[place] [place] [facility] [place], normal LV function EF 65% Multivessel CAD, see full report for details, circumflex has a prior stent proximal with an 85% in-stent restenosis which was thought to be symptom culprit treated with a 3.0 scoring balloon to 14 mmHg with multiple inflations with final angiographic result found excellent. Recommended medical management for his other diffuse disease. Continued on aspirin, clopidogrel, metoprolol and amlodipine with consideration to uptitrate antianginals if remains symptomatic. Continued on statin. Has not used any sublingual nitro. Patient is actually doing quite well at this time. He has really done well since his beta-jose was increased approximately 1 month ago after [facility] hospitalization, current dose 75 mg daily. However, since he is noticing some more brain fog over the past 1 months since this change, am hesitant to increase this further today. Alternatively, discussed increasing amlodipine. Patient prefers to stay with current meds and doses as he did not have any recurrent angina over the past month or so with only 1 isolated episode today. Asked patient to follow-up in 2 months. Assessment & Plan (04/12/2024 7:01 PM EST): History of CAD as above. Follows with [facility] cardiology, Dr. Fonseca. Previously diagnosed with stable angina. Details of his prior interventions unclear, per notes from Dr. Fonseca he has been trying to obtain these records. Plan for nuclear stress testing in the morning. I will order this so that doses can be arranged. Continuing him on his baseline medical regimen with aspirin, Plavix, statin. Metoprolol held for stress testing. Caffeine hold also needed in the morning. Patient occasionally uses melatonin which I would recommend be discontinued in the setting of coronary disease. Assessment & Plan (10/07/2023 1:35 PM EDT): Stable. Asymptomatic S/P MN 04/2023 in [place] with cardiac stents - Continue ASA/Plavix - Continue statin - Continue Atenolol UTI (urinary tract infection) 10/06/2023 Assessment & Plan (10/07/2023 1:34 PM EDT): Pt with 2-3 days of cloudy urine, dysuria. Cefadroxil by his PCP however did not get a chance to take medication before presentation to the ED. 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 Assessment & Plan (09/10/2020 4:45 PM EDT): -hemoglobin drifted down to 7.8 from 11.8. -Repeat H&H later today improved to 8.3/25.2. -Patient with no chest pain, shortness of breath or signs and symptoms of anemia. -Ileostomy now with brown fecal material no archana blood. -Given unremarkable EGD and evidence of decreased bleeding and with improved H&H will hold on transfusion. -Repeat CBC in a.m. GI bleed 09/09/2020 Assessment & Plan (09/23/2021 12:11 PM EDT): No recurrent bleeding and not on anticoagulation Assessment & Plan (09/10/2020 4:43 PM EDT): -History ileostomy -With multiple episodes of dark red stool in the ostomy bag. Stool now rust brown-colored. -No blood extravasation seen on CTA of the abdomen pelvis -GI consulted endoscopy performed today 09/10/2020 and was unremarkable. Recommendation is for outpatient video capsule endoscopy to more fully evaluate the small bowel. Bleeding thought to be from patient's stoma. -Continue PPI Hodgkin lymphoma 06/27/2020 Assessment & Plan (10/06/2023 3:13 PM EDT): Follows with Dr. Paez, stable, no evidence of disease progression Assessment & Plan (09/10/2020 4:50 PM EDT): -Hospitalist team discussed with Dr. Paez -There has been a question if the Adriamycin and the chemo regimen (ABVD doxorubicin, bleomycin, vinblastine, dacarbazine) be causing typhlitis leading to some bleeding but Dr. Paez feels that this is beyond the scope of that and that the patient should be evaluated with GI with endoscopy -He received his last treatment was 09/04 and he received udenyca 09/05 -Formal oncology consult appreciated-patient to follow-up with oncology as an outpatient to determine further chemotherapy moving forward. -Blood counts: white blood cell count was elevated due to recent pegfilgrastim now down to 5.4 -Platelet count is normal at 162,000 -Continue to monitor Chronic obstructive pulmonary disease 02/01/2020 Assessment & Plan (04/12/2024 7:01 PM EST): Documented history of COPD but not on any routine medications for lung disease. No signs or symptoms of acute exacerbation. Can make albuterol inhaler available if needed. MAHAN (dyspnea on exertion) 12/29/2019 Assessment & Plan (09/23/2021 12:11 PM EDT): Breathing is about at its baseline Assessment & Plan (07/29/2021 8:17 AM EDT): I have ordered him a stress test for this A-fib 04/19/2016 Overview (09/09/2020): episode of this saw Dr Ortiz-no reoccurance Assessment & Plan (10/06/2023 6:26 PM EDT): Pt had been told he had afib as per Dr. Cid: there is no documentation of this - Pt with frequent PACs on holter monitor but no afib. - Pt with possible transient episode of afib many years ago no reoccurrence, telemetry shows PAC and pt currently in NSR - Continue home Atenolol Assessment & Plan (01/28/2022 1:57 PM EDT): Well controlled and in sinus rhythm today. He has been asymptomatic completely. He has declined anticoagulation because of his history of bleeding. Assessment & Plan (09/23/2021 12:10 PM EDT): He has not had any recurrent atrial fibrillation but does have a lot of PACs. We are starting metoprolol 50 mg once a day and will reevaluate in 3 months Assessment & Plan (07/29/2021 8:16 AM EDT): He said that this happened in the remote past with no recurrences I am going to order him a loop recorder if he has any I will have to consider oral anticoagulation Assessment & Plan (09/10/2020 4:46 PM EDT): -Rates well controlled. - not on chronic anticoagulation - HOLD aspirin for now given acute bleeding Glaucoma 04/19/2016 Assessment & Plan (09/09/2020 3:02 PM EDT): Continue latanoprost and timolol S/P colectomy 04/19/1979 Overview (04/12/2024): pancolitis Assessment & Plan (04/12/2024 7:01 PM EST): Patient normally manages his ostomy on his own, not due for change for several days. If needed ostomy nurse consult could be arranged. Essential hypertension Assessment & Plan (04/12/2024 7:01 PM EST): Patient is on metoprolol succinate and amlodipine for his blood pressure management. Blood pressure was mildly elevated on arrival with some ED related anxiety. Would recommend continuation of lorazepam nightly to help with sleep. Additionally metoprolol had to be held for stress testing in the morning. Continuing amlodipine with hold parameters. Defer medication adjustments to cardiology. Assessment & Plan (01/28/2022 1:56 PM EDT): Blood pressure is at goal today. No change to current therapy continue current medications. Assessment & Plan (09/23/2021 12:11 PM EDT): Poorly controlled hopefully the metoprolol will take care of this Assessment & Plan (07/29/2021 8:16 AM EDT): Well-controlled Assessment & Plan (09/10/2020 4:48 PM EDT): -Blood pressures well controlled and stable. Hypotensive readings noted today were during endoscopy. -No further symptoms of lightheadedness as amlodipine was held. -Amlodipine restarted this afternoon. -Monitor blood pressures and clinical symptoms. -Of note patient is also on tamsulosin which will affect his blood pressure. History of prostate cancer Overview (09/09/2020): low grade being followed conservatively Assessment & Plan (09/10/2020 4:50 PM EDT): -Has some mild difficulty with stream due to prostate cancer which is being followed. No documented urinary retention. -Continue his home medication finasteride and tamsulosin (added hold parameters for hypotension for the tamsulosin) GERD (gastroesophageal reflux disease) Assessment & Plan (04/12/2024 7:01 PM EST): Continued on daily pantoprazole. Encounters Date Type Department Care Team Description 12/07/2024 1:45 PM EDT Office Visit [facility] Cardiopulmonary Rehabilitation [address] [place] [phone] Armand Fonseca MD Stable angina (Primary Dx) 12/07/2024 Plan of Care Documentation [facility] Card[facility] Rehabilitation [address] [place] [address] 12/05/2024 1:45 PM EDT Office Visit [facility] Cardiopulmonary Rehabilitation [address] [place] [address] Armand Fonseca MD Stable angina (Primary Dx) 11/30/2024 1:45 PM EDT Office Visit [facility] Cardiopulmonary [address] [address] Armand Fonseca MD Stable angina (Primary Dx) 11/23/2024 1:45 PM EDT Office Visit [facility] Cardiopulmonary [address] [address] Armand Fonseca MD Stable angina (Primary Dx) 11/23/2024 Plan of Care Documentation [facility] Cardiopulmonary [address] [address] 11/21/2024 1:45 PM EDT Office Visit [facility] Cardiopulmonary [address] [address] Armand Fonseca MD Stable angina (Primary Dx) 11/16/2024 3:00 PM EDT Office Visit [facility] Cardiopulmonary [address] [address] Armand Fonseca MD Stable angina (Primary Dx) 11/14/2024 7:34 PM EDT - 11/14/2024 11:59 PM EDT Hospital Encounter [facility] Specimen Processing [address] [place] [address] Indira Villafana PA Discharge Disposition: Home or Self Care 11/14/2024 3:29 PM EDT - 11/14/2024 7:33 PM EDT Hospital Encounter [address] [address] Indira Villafana PA Discharge Disposition: Home or Self Care 11/14/2024 3:07 PM EDT - 11/14/2024 3:28 PM EDT Hospital Encounter [facility] Laboratory [address] [place] [address] Indira Villafana PA Discharge Disposition: Home or Self Care 11/14/2024 Transcribe Orders [facility] Specimen Processing [address] [place] [phone] Indira Villafana PA Fatigue, unspecified type (Primary Dx); Cough, unspecified type 11/14/2024 Ancillary Orders [address] [address] Indira Villafana PA Cough, unspecified type (Primary Dx) 11/09/2024 1:45 PM EDT Office Visit [facility] Cardiopulmonary [address] [address] Armand Fonseca MD Stable angina (Primary Dx) 11/07/2024 1:45 PM EDT Office Visit [facility] Cardiopulmonary Rehabilitation [address] [place] [address] Armand Fonseca MD Stable angina (Primary Dx) 11/03/2024 Refill [facility] [address], [address] [place] [address] Armand Fonseca MD Medication Refill 11/02/2024 1:45 PM EDT Office Visit [facility] Cardiopulmonary Rehabilitation [address] [place] [phone] Armand Fonseca MD Stable angina (Primary Dx) 10/31/2024 1:45 PM EDT Office Visit [facility] Cardiopulmonary [address] [address] Armand Fonseca MD Stable angina (Primary Dx) 10/26/2024 Plan of Care Documentation [facility] Cardiopulmonary [address] [address] 10/26/2024 Documentation [facility] Cardiopulmonary [address] [address] Carolina Hernandez CR Assessment 10/24/2024 1:45 PM EDT Office Visit [facility] Cardiopulmonary [address] [address] Armand Fonseca MD Stable angina (Primary Dx) 10/17/2024 1:45 PM EDT Office Visit [facility] Cardiopulmonary Rehabilitation [address] [place] [address] Armand Fonseca MD Stable angina (Primary Dx) 10/12/2024 1:45 PM EDT Office Visit [facility] Cardiopulmonary Rehabilitation [address] [place] [address] Armand Fonseca MD Stable angina (Primary Dx) 10/10/2024 1:45 PM EDT Office Visit [facility] Cardiopulmonary Rehabilitation [address] [place] [address] Armand Fonseca MD Stable angina (Primary Dx) 10/04/2024 12:10 PM EDT - 10/04/2024 11:59 PM EDT Hospital Encounter [facility] [address] [place] [address] Armand Fonseca MD Discharge Disposition: Home or Self Care 10/04/2024 Ancillary Orders [facility] [address], [address] [place] [address] Armand Fonseca MD Essential hypertension (Primary Dx); Coronary artery disease involving [place] coronary artery of [place] heart without angina pectoris; MAHAN (dyspnea on exertion) 10/03/2024 1:45 PM EDT Office Visit [facility] Cardiopulmonary Rehabilitation [address] [place] [address] Armand Fonseca MD Stable angina (Primary Dx) 09/28/2024 Plan of Care Documentation [facility] Cardiopulmonary Rehabilitation [address] [place] [address] 09/28/2024 Documentation [facility] Cardiopulmonary [address] [address] Carolina Hernandez CR Assessment 09/26/2024 1:45 PM EDT Office Visit [facility] Cardiopulmonary Rehabilitation [address] [place] [phone] Armand Fonseca MD Stable angina (Primary Dx) 09/21/2024 1:45 PM EDT Office Visit [facility] Cardiopulmonary Rehabilitation [address] [place] [address] Armand Fonseca MD Stable angina (Primary Dx) 09/19/2024 1:45 PM EDT Office Visit [facility] Cardiopulmonary Rehabilitation [address] [place] [address] Armand Fonseca MD Stable angina (Primary Dx) 09/12/2024 1:45 PM EDT Office Visit [facility] Cardiopulmonary Rehabilitation [address] [place] [address] Armand Fonseca MD Stable angina (Primary Dx) from Last 3 Months Immunizations Immunization Administration Dates Next Due COVID-19 (Pre-02/08) Pfizer Vaccine, mRNA, PF 06/18/2020,05/28/2020 Influenza High-Dose Trivalen t Preservative Free IM 01/03/2020,01/23/2019,02/10/2018,2016 Pneumococcal conjugate PCV13 11/19/2014 Family History Medical History Relation Comments COPD Father Breast cancer Mother Relation Status Comments Father Mother age 64 Social History Tobacco Use Types Packs/Day Years Used Date Smoking Tobacco: Former Cigarettes 1 1979 Smokeless Tobacco: Never Tobacco Cessation:Counseling Given: Not Answered Alcohol Use Standard Drinks/Week Comments Yes 0 [...] Not on file No t on file Last Filed Vital Signs Vital Sign Reading Time Taken Comments Blood Pressure 136/72 08/21/2024 2:48 PM EDT Pulse 86 08/21/2024 2:48 PM EDT Temperature 36.6 C (97.8 F) 08/17/2024 3:34 PM EDT Respiratory Rate 16 06/08/2024 2:21 PM EST Oxygen Saturation 98% 08/21/2024 2:48 PM EDT Inhaled Oxygen Concentration - - Weight 85.7 kg (189 lb) 08/21/2024 2:48 PM EDT Height 165.1 cm (5' 5 ) 08/21/2024 2:48 PM EDT Body Mass Index 31.45 08/21/2024 2:48 PM EDT Plan of Treatment Upcoming Encounters Date Type Department Care Team (Late st Contact Info) Description 01/22/2025 3:30 PM EDT Office Visit [facility] [address] [place] [address] [address], [address] [place] [address] Karie Seals PA-C [address] [place] [address] 02/15/2025 2:00 PM EDT Appointment [facility] [address] [place] [address] Pedro Paez MD [address] [place] [address] 02/15/2025 3:00 PM EDT Office Visit [facility] [address] [place] [address] Pedro Paez MD [address] [place] [phone] [email or web address] Health Maintenance Due Date Last Done Comments Adult Td,Tdap Booster 1940 ZOSTER VACCINES (1 of 2) 1957 RSV VACCINE (1 - 1-dose 75+ series) 2013 PNEUMOCOCCAL VACCINES (50+ years) (2 of 2 - PPSV23) 01/14/2015 11/19/2014 COVID-19 VACCINE (3 - 2023-2 5 season) 2023 06/18/2020, 05/28/2020 DEPRESSION SCREENING 06/08/2025 06/08/2024 HEPATITIS A VACCINES Aged Out No long er eligible based on patient's age to complete this topic HIB VACCINES Aged Out No longer eligi ble based on patient's age to complete this topic MENINGOCOCCAL VACCINES (ACWY) Aged Out No longer eligible based on patient's age to complete this topic MENINGOCOCCAL VACCINES (B) Aged Out N o longer eligible based on patient's age to complete this topic Medical Devices Implanted Type Area Instrumentation Tech Device Identifier Shelf Expiration Date Model / Serial / Lot Port Dignity 6.6fr Infusion Mid Size Attachable Silicone Filled Suture Hole - [id number] Implanted:Qty: 1 on 07/31/2020 by Garth Unger MD at [facility] Right: Chest Wall MED COMP [id number] 12/17/2024 [id number] / / [id number] Procedures Procedure Name Priority Date/Time Associated Diagnosis Comments COVID-19 RT PCR Routine 11/14/2024 7:36 PM EDT COVID-19 PCR ORDER Routine 11/14/2024 7: 36 PM EDT Fatigue, unspecified type Cough, unspecified type XR CHEST PA AND LATERAL 2 VIEWS Routine 11/14/2024 3:38 PM EDT Cough, unspecified type URINE SEDIMENT Routine 11/14/2024 3:28 PM EDT URINALYSIS W/REFLEX URINE CULTURE Routine 11/14/2024 3:28 PM EDT Fatigue, unspecified type MAGNESIUM Routine 11/14/2024 3:12 PM EDT Fatigue, unspecified type BASIC METABOLIC PANEL Routine 11/14/2024 3:12 PM EDT Fatigue, unspecified type TSH WITH REFLEX Routine 11/14/2024 3:12 PM EDT Fatigue, unspecified type CBC Routine 11/14/2024 3:12 PM EDT Fatigue, unspecified type NT-PROBNP Routine 11/14/2024 3:12 PM EDT Fatigue, unspecified type SEDIMENTATION RATE (ESR) Routine 11/14/2024 3:12 PM EDT Nodular sclerosis Hodgkin lymphoma of intra-abdominal lymph nodes LYME SCREEN WITH REFLEX TO WESTERN BLOT, BLOOD Routine 11/14/2024 3:12 PM EDT Fatigue, unspecified type US LOWER EXTREMITY ARTERIES (ROCK) PHYSIO COMPLETE BILAT Routine 10/04/2024 12:58 PM EDT Essential hypertension Coronary artery disease involving [place] coronary artery of [place] heart without angina pectoris MAHAN (dyspnea on exertion) US LOWER EXTREMITY ARTERIES DUPLEX COMPLETE (BILATERAL) Routine 10/04/2024 12:58 PM EDT Essential hypertension Coronary artery disease involving [place] coronary artery of [place] heart without angina pectoris MAHAN (dyspnea on exertion) from Last 3 Months Results * COVID-19 RT-PCR (11/14/2024 7:36 PM EDT) SPECIMEN SOURCE/DESCRIPTION [facility]AL [facility] SARS-CoV 2 (COVID-19) PCR Negative Negative [facility] Comment: SARS-CoV-2 not detected Negative results do not preclude SARS-CoV-2 infection and should not be used as the sole basis for patient management decisions. Negative results must be combined with clinical observations, patient history, and epidemiological information. This test has been authorized by the FDA under an Emergency Use Authorization (EUA) for use by authorized laboratories. 11/14/2024 7:36 PM EDT 11/14/2024 7:38 PM EDT Indira Blume PA BODY FLUIDS AND STOOLS ORDERABL ES Final Result Performing Organization Address City/[facility]/ZIP Co de Phone Number [address] [address] * COVID-19 PCR Order (11/14/2024 7:36 PM EDT) COVID Testing Status SWAB [facility] Symptomatic? YES [facility] Other 11/14/2024 7:36 PM EDT 11/14/2024 7:38 PM EDT [facility] PA BODY FLUIDS AND STOOLS ORDERABL ES Final Result Performing Organization Address [facility] [facility] Co de Phone Number [address] [address] * XR CHEST PA AND LATERAL 2 VIEWS (11/14/2024 3:38 PM EDT) Anatomical Region Laterality Modality Chest Computed Radiogr aphy 11/14/2024 4:09 PM EDT Impressions 11/14/2024 4:10 PM EDT No acute abnormality. Narrative 11/14/2024 4:10 PM EDT XR CHEST PA AND LATERAL 2 VIEWS Referring clinician's provided indication for this examination in Epic: Pain COMPARISON: XR CHEST 1 VIEW FINDINGS: Devices/Tubes/Lines: None. Lungs: Normal. The lungs are clear. No focal consolidation or pulmonary edema. Pleura: Normal. No pleural effusion or pneumothorax. Heart/Mediastinum: Normal heart and mediastinum. Bones/Soft Tissues: Normal. No significant skeletal abnormality. Procedure Note Glen Amador MD - 11/14/2024 XR CHEST PA AND LATERAL 2 VIEWS Referring clinician's provided indication for this examination in Epic:Pain COMPARISON: XR CHEST 1 VIEW FINDINGS: Devices/Tubes/Lines: None. Lungs: Normal. The lungs are clear. No focal consolidation or pulmonaryedema. Pleura: Normal. No pleural effusion or pneumothorax. Heart/Mediastinum: Normal heart and mediastinum. Bones/Soft Tissues: Normal. No significant skeletal abnormality. IMPRESSION: No acute abnormality. Indira FREITAS IMG XR CHEST Final Result * (ABNORMAL) Urinalysis w/reflex Urine Culture (11/14/2024 3:28 PM EDT) COLOR Yellow Yellow [facility] CLARITY Clear [facility] GLUCOSE Negative Negative [facility] BILI Negative Negative [facility] KETONES Negative Negative [facility] SPECIFIC GRAVITY 1.015 1.005 - 1.030 [facility] BLOOD 1+(A) Negative [facility] PH 5.5 5.0 - 8.0 [facility] Protein-UA Negative Negative [facility] NITRITE Negative Negative [facility] Leukocyte esterase, ur Negative Negative [facility] Urine (Urine) 11/14/2024 3:2 8 PM EDT 11/14/2024 3:29 PM EDT Indira FREITAS URINE ORDERABLES Final Result [address] [address] * (ABNORMAL) Urine sediment (11/14/2024 3:28 PM EDT) WBC 0-4(A) NONE SEEN /hpf [facility] RBC 0-2(A) NONE SEEN /hpf [facility] URINE EPITHELIAL 0-4(A) NONE SEEN [facility] MUCUS 1+(A) NONE SEEN /hpf [facility] BACTERIA NONE SEEN NONE SEEN /hpf [facility] 11/14/2024 3:28 PM EDT 11/14/2024 3:29 PM EDT us Indira FREITAS URINE ORDERABLES Final Result Performing Organization Address [facility] Co de Phone Number [address] [address] * Lyme Screen with Reflex to Immunoblot, Blood (11/14/2024 3:12 PM EDT) Lyme AB IgG Negative Negative [facility] Lyme AB IgM Negative Negative [facility] Blood 11/14/2024 3:12 PM EDT 11/14/2024 3:15 PM EDT us Indira FREITAS LAB BLOOD ORDERABLES Final Resu lt Performing Organization Address [facility] Co de Phone Number [address] [address] * TSH with reflex (11/14/2024 3:12 PM EDT) TSH 2.09 0.27 - 4.20 uIU/mL [facility] Blood 11/14/2024 3:12 PM EDT 11/14/2024 3:15 PM EDT us Indira FREITAS LAB BLOOD ORDERABLES Final Resu lt Performing Organization Address [facility] Co de Phone Number [address] [address] * Sedimentation rate (ESR) (11/14/2024 3:12 PM EDT) ESR 16 0 - 20 mm/h [facility] Blood 11/14/2024 3:12 PM EDT 11/14/2024 3:15 PM EDT us Pedro Paez MD LAB BLOOD ORDERABLES Final Res ult Performing Organization Address [facility] Co de Phone Number [address] [address] * (ABNORMAL) CBC (11/14/2024 3:12 PM EDT) WBC 8.36 4.00 - 11.00 K/uL [facility] RBC 4.88 4.50 - 5.90 M/uL [facility] HGB 14.6 13.5 - 17.5 g/dL [facility] HCT 45.7 41.0 - 53.0 % [facility] PLT 288 150 - 450 K/uL [facility] MCV 93.6 80.0 - 100.0 fL [facility] MCH 29.9 27.0 - 31.0 pg [facility] MCHC 31.9(L) 32.0 - 36.0 g/dL [facility] RDW 14.2 11.5 - 14.5 % [facility] MPV 10.2 8.4 - 12.0 fL [facility] NRBC 0.00 0.00 /100 WBCs [facility] ABSOLUTE NRBC 0.00 0.00 K/uL [facility] Blood 11/14/2024 3:12 PM EDT 11/14/2024 3:15 PM EDT Indira Ledy [place] LAB BLOOD ORDERABLES Final Resu lt Performing Organization Address [facility]/ZIP Co de Phone Number [address] [address] * (ABNORMAL) NT-proBNP (11/14/2024 3:12 PM EDT) NT-PROBNP 627(H) 0 - 450 pg/mL [facility] Blood 11/14/2024 3:12 PM EDT 11/14/2024 3:15 PM EDT [facility] Ledy [place] LAB BLOOD ORDERABLES Final Resu lt Performing Organization Address City/[facility]/ZIP Co de Phone Number [address] [address] * Magnesium (11/14/2024 3:12 PM EDT) MAGNESIUM 1.8 1.6 - 2.6 mg/dL [facility] Blood 11/14/2024 3:12 PM EDT 11/14/2024 3:15 PM EDT us Indira Villafana PA LAB BLOOD ORDERABLES Final Resu lt [address] [address] * (ABNORMAL) Basic metabolic panel (11/14/2024 3:12 PM EDT) SODIUM 140 133 - 146 mmol/L [facility] CHLORIDE 104 96 - 108 mmol/L [facility] POTASSIUM 4.9 3.3 - 5.1 mmol/L [facility] CO2 23 21 - 35 mmol/L [facility] BUN 17 6 - 19 mg/dL [facility] CREATININE 1.30 0.5 - 1.5 mg/dL [facility] GLUCOSE 89 70 - 99 mg/dL [facility] CALCIUM 9.5 8.4 - 10.3 mg/dL [facility] EGFR 54(L) >59 mL/min/1.7 3m2 [facility] Comment:Estimated glomerular filtration rate calculated using the CKD-EPI refit equation. ANION GAP 18 10 - 20 mmol/L [facility] Blood 11/14/2024 3:12 PM EDT 11/14/2024 3:15 PM EDT Indira Villafana PA LAB BLOOD ORDERABLES Final Resu lt [address] [address] * US Lower Extremity Arteries Duplex Complete (Bilateral) (10/04/2024 12:58 PM EDT) Height 165 cm Weight 86 kg Anatomical Region Laterality Modality Ultrasound Narrative 10/04/2024 1:38 PM EDT Impression: Right: Biphasic flow throughout. Mid SFA stenosis 20-49% Distal Posterior Tibial stenosis >50% Left: Biphasic flow throughout. No focal stenosis noted. Lower Arterial Duplex Left Left Side: External Iliac Artery: Peak Velocity: 112 cm/s Phasicity: biphasic Plaque: calcified Stenosis: <20 % Common Femoral Artery: Peak Velocity: 106 cm/s Phasicity: biphasic Plaque: calcified Stenosis: <20 % Profunda Artery: Peak Velocity: 95 cm/s Phasicity: biphasic Plaque: calcified Stenosis: <20 % Proximal Femoral Artery: Peak Velocity: 162 cm/s Phasicity: biphasic Plaque: calcified Stenosis: <20 % Mid Femoral Artery: Peak Velocity: 138 cm/s Phasicity: biphasic Plaque: calcified Stenosis: <20 % Distal Femoral Artery: Peak Velocity: 64 cm/s Phasicity: biphasic Plaque: calcified Stenosis: <20 % Popliteal Artery: Peak Velocity: 60 cm/s Phasicity: biphasic Plaque: calcified Stenosis: <20 % Posterior Tibial Artery: Peak Velocity: 25 cm/s Phasicity: biphasic Anterior Tibial Artery: Peak Velocity: 115 cm/s Phasicity: biphasic Lower Arterial Duplex Right Right Side: External Iliac Artery: Peak Velocity: 154 cm/s Phasicity: biphasic Plaque: calcified Stenosis: <20 % Common Femoral Artery: Peak Velocity: 161 cm/s Phasicity: biphasic Plaque: calcified Stenosis: <20 % Profunda Artery: Peak Velocity: 176 cm/s Phasicity: biphasic Plaque: calcified Stenosis: <20 % Proximal Femoral Artery: Peak Velocity: 117 cm/s Phasicity: biphasic Plaque: calcified Stenosis: <20 % Mid Femoral Artery: Peak Velocity: 221 cm/s Phasicity: biphasic Plaque: calcified Stenosis: 20-49 % Distal Femoral Artery: Peak Velocity: 58 cm/s Phasicity: biphasic Plaque: calcified Stenosis: <20 % Popliteal Artery: Peak Velocity: 47 cm/s Phasicity: biphasic Plaque: calcified Stenosis: <20 % Posterior Tibial Artery: Peak Velocity: 354 cm/s Phasicity: biphasic Stenosis: >50% Anterior Tibial Artery: Peak Velocity: 26 cm/s Phasicity: biphasic us Armand Fonseca MD CV US VASCULAR Final Resul t * US Lower Extremity Arteries (ROCK) Physio Complete Bilat (10/04/2024 12:58 PM EDT) Arm 150 mmHg Posterior Tibial 100 mmHg Posterior Tibial Index 0.67 Dorsalis Pedis 120 mmHg Dorsalis Pedis Index 0.80 Arm 150 mmHg Posterior Tibial 120 mmHg Posterior Tibial Index 0.80 Dorsalis Pedis 150 mmHg Dorsalis Pedis Index 1.00 Anatomical Region Laterality Modality Ultrasound Narrative 10/04/2024 1:39 PM EDT Impression: Right Side: Ankle/Brachial index on the right side is 0.8.; waveform is monophasic. Left Side: Ankle/Brachial index on the left side is 1.0; waveform is multiphasic. Armand Fonseca MD [facility] VASCULAR Final Resul t from Last 3 Months Insurance MEDICARE PART A & B [facility] MEDICARE PART A & B [facility] MEDICARE [facility] A & B [facility] MEDICARE [facility] A & B [facility] MEDICARE PART A & B [facility] MEDICARE PART A & B [facility] MEDICARE PART A & B [facility] MEDICARE PART A & B [facility] MEDICARE PART A & B [facility] Advance Directives For more information, please contact: [phone] (9AM - 5PM [facility], Wednesday-Wednesday) Documents on File Type Date Recorded Patient Assistant Spa Manager Expl anation Healthcare Proxy 07/18/2020 HCP & Advan ce Directive 07/18/2020 * Full Code (Latest Code Status on File) Date Activated Date Inactivated Comments 04/12/2024 7:00 PM Question Answer Comments Code Status Confirmed With: Patient * Full Code Date Activated Date Inactivated Comments 10/06/2023 2:46 PM 04/12/2024 7:00 PM Question Answer Comments Code Status Confirmed With: Patient * Full Code Date Activated Date Inactivated Comments 09/09/2020 3:01 PM 10/06/2023 2:46 PM Question Answer Comments Code Status Confirmed With: Patient Healthcare Agents on File Name Relationship Healthcare Agent Relationship Communication Flavia Gonzalez Sister Alternate Healthcare Agent (Proxy form on file) Armand Thayer Other .Primary He alth Care Agent (Proxy form on file) Care Teams Manager Product Marketing Relationship Specialty Start Date End Date Leila Moran MD [address] [place] [phone] [email or web address] PCP - General 04/22/17 Pedro Paez MD [address] [place] [phone] [email or web address] Primary Oncologist Medical Oncology 07/08/20 Alley Nguyen CNP [address] [place] [address] [email or web address] Nurse Practitioner Oncology 06/18/21 Additional Source Comments The information contained in this document represents components of the legal health record. It is not the complete legal health record.[facility]
--- OUTSIDE RECORDS SUMMARY | 2024-12-12 11:26 | XMS_ITS ---
Author Organization [facility] Address [address] [place] [address] [place] [address] Phone Care Team Providers Care Irrigation System Installer Name Role Phone Leila Moran MD Primary Care Provider Pedro Paez MD Unavailable [phone] Alley Nguyen CNP Unavailable Active Problems Patient Care Coordination No te Formatting of this note migh t be different from the original. Height 164cm no shoes 09/08/22 CALL PT SISTER IF YOU CANNOT REACH THE PATIENT Problem Noted Date Diagnosed Date Chest pain 04/12/2024 Assessment & Plan (04/12/2024 7:04 PM EST): History of coronary disease, history of prior NH and angioplasty in [place], follows as an outpatient with Dr. Fonseca. [...] catheterization completed 05/09/[address] Fonseca at [facility]- Normal LVEDP, normal LV function EF 65% [...] (10/07/2023 1:35 PM EDT): Stable. Asymptomatic S/P NH 04/2023 in [place] with cardiac stents - Continue ASA/Plavix - [...] 7:01 PM EST): Continued on daily pantoprazole. 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 Past Treatment and Therapy Plans TREATMENT PLAN Plan Name Start Date Discontinue Date Treatment Medications Discontinue Reason Plan Provider Cycles ABVD-DOX ORUBICIN /BLEOMYC IN/VINBL ASTINE/D ACARBAZI NE 07/31/2020 01/30/2021 bleomycin (BLENOXANE) IVPBdacarbazine (DTIC) IVPBDOXOrubicin (ADRIAMYCIN)vinBLA Brionna (VELBAN) a. Therapy Complete Pedro Paez MD 6 of 6 cycles started Lifetime Dose Tracking * Chemical Lifetime Dose Automatic Entry Manual Entr y doxorubicin 272.523 mg/m2 (511 mg) 272.523 mg/m2 (511 mg) 0 mg/m2 (0 mg) bleomycin 76.8 Units 76.8 Units 0 Units Invasive Cardiology Radiation Exposure 2 mGy 0 mGy 2 mGy 2. DAP 61.95 uGy-m2 0 uGy-m2 61.95 uGy-m2
--- OUTSIDE RECORDS SUMMARY | 2024-12-12 11:27 | XMS_ITS | Encounter Summary ---
Author Organization [facility] Address [address] [place] [address] Phone Care Team Providers Care Tax Advisor Name Role Phone Leila Moran MD Primary Care Provider [phone] Pedro Paez MD Unavailable [phone] Alley Nguyen CNP Unavailable Encounter Details Date Type Department Care Team (Late st Contact Info) Description 09/04/[address] [facility] [address] [phone] Leila Moran MD [address] [place] [address] [phone] [email or web address] Low magnesium level (Primary Dx); Low vitamin B12 level; Fatigue, unspecified type; Hypertension, unspecified type Social History Tobacco Use Types Packs/Day Years Used Date Smoking Tobacco: Former Cigarettes 1979 Smokeless Tobacco: Never Alcohol Use Standard [...] on file documented as of this encounter Plan of Treatment Upcoming Encounters Date Type Department Care Team ([facility] st Contact Info) Description 01/22/2025 3:30 PM EDT [facility] [address] [facility] [place] [address] Karie Seals PA-C [address] [place] [address] [email or web address] 02/15/2025 2:00 PM EDT Appointment [facility] [address] [place] [address] Pedro Paez MD [address] [place] [address] 02/15/2025 3:00 PM EDT Office Visit [facility] at [address] [address] Pedro Paez MD [address] [place] [address] [email or web address] documented as of this encounter Results * Magnesium (09/04/2024 10:16 AM EDT) MAGNESIUM 1.7 1.6 - 2.6 mg/dL [facility] Blood 09/04/2024 10:1 6 AM EDT 09/04/2024 10:44 AM EDT Leila Moran MD LAB BLOOD ORDERABLES Final Result [address] [address] * Vitamin B12 (09/04/2024 10:16 AM EDT) VITAMIN B12 437 232 - 1,245 pg/mL [facility] Blood 09/04/2024 10:1 6 AM EDT 09/04/2024 10:44 AM EDT Leila Moran MD LAB BLOOD ORDERABLES Final Result [address] [address] * TSH (09/04/2024 10:16 AM EDT) TSH 1.80 0.27 - 4.20 uIU/mL [facility] Blood 09/04/2024 10:1 6 AM EDT 09/04/2024 10:44 AM EDT Leial Moran MD LAB BLOOD ORDERABLES Final Result [address] [address] documented in this encounter Visit Diagnoses Diagnosis Low magnesium level- Primary Low vitamin B12 level Fatigue, unspecified type Hypertension, unspecified type documented in this encounter Additional Health Concerns Infection Onset Date Last Indicated Resolved Time CoV-Risk 11/14/2024 11/14/2024 11/25/2024 1:21 AM EDT Assessment Noted Time PHQ-9 Depression Total Score: 3 06/08/19 25 2:22 PM EST documented as of this encounter Care Teams Tax Advisor Relationship Specialty Start Date End Date Leila Moran MD [address] [place] [address] PCP - General 04/22/17 Pedro Paez MD [address] [place] [address] Primary Oncologist Medical Oncology 07/08/20 Alley Nguyen CNP [address] [place] [address] Nurse Practitioner Oncology 06/18/21 documented as of this encounter Additional Source Comments The information contained in this document represents components of the legal health record. It is not the complete legal health record.[facility]
--- OUTSIDE RECORDS SUMMARY | 2024-12-12 11:27 | XMS_ITS | Encounter Summary ---
Author Organization [facility] Address [address] [place] [address] [place] [address] Phone Care Team Providers Care Jr. Systems Administrator Name Role Phone Leila Moran MD Primary Care Provider Pedro Paez MD Unavailable [phone] Alley Nguyen CNP Unavailable Encounter Details Date Type Department Care Team (Late st Contact Info) Description 12/24/2021 Procedure Pass Non-Invasive Cardiology [address] [place] [address] Social History Tobacco Use Types Packs/Day Years [...] Description 01/22/2025 3:30 PM EDT Office Visit [facility] [address], [address] [place] [address] Karie Seals PA-C [address] [place] [address] 02/15/2025 2:00 PM EDT Appointment [facility] [address] [place] [address] Pedro Paez MD [address] [place] [address] 02/15/2025 3:00 PM EDT Office Visit [facility] [address] [place] [address] Pedro Paez MD [address] [place] [address] documented as of this encounter Visit Diagnoses Not on filedocumented in this encounter Additional Health Concerns Infection Onset Date Last Indicated Resolved Time CDiff-Risk 10/06/2023 10/06/2023 10/06/2023 5:43 PM EDT CoV-Risk 11/14/2024 11/14/2024 11/25/2024 1:21 AM EDT documented as of this encounter Care Teams Jr. Systems Administrator Relationship Specialty Start Date End Date Leila Moran MD [address] [place] [address] PCP - General 04/22/17 Pedro Paez MD [address] [place] [address] Primary Oncologist Medical Oncology 07/08/20 Alley Nguyen CNP [address] [place] [address] Nurse Practitioner Oncology 06/18/21 documented as of this encounter Additional Source Comments The information contained in this document represents components of the legal health record. It is not the complete legal health record.[facility]
--- OUTSIDE RECORDS SUMMARY | 2024-12-12 11:27 | XMS_ITS | Encounter Summary ---
Author Organization [facility] Address [address] [place] [address] [place] [address] Phone Care Team Providers Care Crane Rigger Name Role Phone Leila Moran MD Primary Care Provider Pedro Paez MD Unavailable [phone] Alley Nguyen CNP Unavailable Encounter Details Date Type Department Care Team (Late st Contact Info) Description 10/01/2021 Procedure Pass [facility], [address] [address] Social History Tobacco Use Types Packs/Day Years Used Date Smoking Tobacco: Former Cigarettes 1 969 - 1587 Smokeless Tobacco: Never Alcohol Use Standard Drinks/Week [...] Description 01/22/2025 3:30 PM EDT Office Visit [facility] [address] [place] [address] [address]rd Floor, [address] [place] [address] Karie Seals PA-C [address] [place] [address] 02/15/2025 2:00 PM EDT Appointment [facility] [address] [place] [address] Pedro Paez MD [address] [place] [address] 02/15/2025 3:00 PM EDT Office Visit [facility] [address] [place] [address] Pedro Paez MD [address] [place] [address] documented as of this encounter Visit Diagnoses Not on filedocumented in this encounter Additional Health Concerns Infection Onset Date Last Indicated Resolved Time CDiff-Risk 10/06/2023 10/06/2023 10/06/2023 5:43 PM EDT CoV-Risk 11/14/2024 11/14/2024 11/25/2024 1:21 AM EDT documented as of this encounter Care Teams Crane Rigger Relationship Specialty Start Date End Date Leila Moran MD [address] [place] [address] PCP - General 04/22/17 Pedro Paez MD [address] [place] [address] Primary Oncologist Medical Oncology 07/08/20 Alley Nguyen CNP [address] [place] [address] Nurse Practitioner Oncology 06/18/21 documented as of this encounter Additional Source Comments The information contained in this document represents components of the legal health record. It is not the complete legal health record.[facility]
--- OUTSIDE RECORDS SUMMARY | 2024-12-12 11:27 | XMS_ITS | Encounter Summary ---
Author Organization [facility] Address [address] [place] [address] Phone Care Team Providers Care Fuel Operator Name Role Phone Leila Moran MD Primary Care Provider Pedro Paez MD Unavailable [phone] Alley Nguyen CNP Unavailable Encounter Details Date Type Department Care Team (Late st Contact Info) Description 01/01/2022 Transcribe Orders [facility] Laboratory [address] [id number] Leila Moran MD [address] [place] [address] [email or web address] Chronic kidney disease, unspecified CKD stage (Primary Dx); Screening for prostate cancer Social History Tobacco Use Types Packs/Day Years [...] Description 01/22/2025 3:30 PM EDT Office Visit [facility] [address]rd Floor, [address] [place] [address] Karie Seals PA-C [address] [place] [address] 02/15/2025 2:00 PM EDT Appointment [facility] [address] [place] [address] Pedro Paez MD [address] [place] [address] 02/15/2025 3:00 PM EDT Office Visit [facility] at [address] [address] Pedro Paez MD [address] [place] [address] documented as of this encounter Results * (ABNORMAL) PSA (screening) (01/01/2022 10:55 AM EDT) Pathologist [facility] PSA 4.45(H) 0 - 4.00 ng/mL [facility] Blood 01/01/2022 10:5 5 AM EDT 01/01/2022 10:59 AM EDT us Leila Moran MD LAB BLOOD ORDERABLES Final Result [address] [address] * (ABNORMAL) Basic metabolic panel (01/01/2022 10:55 AM EDT) SODIUM 146 133 - 146 mmol/L [facility] CHLORIDE 109(H) 96 - 108 mmol/L [facility] POTASSIUM 4.8 3.3 - 5.1 mmol/L [facility] CO2 26 21 - 35 mmol/L [facility] BUN 18 6 - 19 mg/dL [facility] CREATININE 1.10 0.5 - 1.5 mg/dL [facility] GLUCOSE 73 70 - 99 mg/dL [facility] CALCIUM 9.5 8.4 - 10.3 mg/dL [facility] EGFR 67 >59 mL/min/1.7 3m2 [facility] Comment:Estimated glomerular filtration rate calculated using the CKD-EPI refit equation. ANION GAP 16 10 - 20 mmol/L [facility] Blood 01/01/2022 10:5 5 AM EDT 01/01/2022 10:59 AM EDT us Leila Moran MD LAB BLOOD ORDERABLES Final Result [address] [address] documented in this encounter Visit Diagnoses Diagnosis Chronic kidney disease, unspecified CKD stage- Primary Screening for prostate cancer Special screening for malignant neoplasm of prostate documented in this encounter Additional Health Concerns Infection Onset Date Last Indicated Resolved Time CDiff-Risk 10/06/2023 10/06/2023 10/06/2023 5:43 PM EDT CoV-Risk 11/14/2024 11/14/2024 11/25/2024 1:21 AM EDT documented as of this encounter Care Teams Fuel Operator Relationship Specialty Start Date End Date Leila Moran MD [address] [place] [address] PCP - General 04/22/17 Pedro Paez MD [address] [place] [address] Primary Oncologist Medical Oncology 07/08/20 Alley Nguyen CNP [address] [place] [address] [email or web address] Nurse Practitioner Oncology 06/18/21 documented as of this encounter Additional Source Comments The information contained in this document represents components of the legal health record. It is not the complete legal health record.[facility]
--- OUTSIDE RECORDS SUMMARY | 2024-12-12 11:28 | XMS_ITS | Encounter Summary ---
Author Organization [facility] Address [address] [place] [address] Phone Care Team Providers Care Vinyl Welder And Fabricator Name Role Phone Leila Moran MD Primary Care Provider [phone] Pedro Paez MD Unavailable [phone] Alley Nguyen CNP Unavailable Encounter Details Date Type Department Care Team (Late st Contact Info) Description 10/14/2023 Transcribe Orders [facility] 10 [facility] 2nd [place], [place] [phone] Leila Moran MD [address] [place] [address] [phone] Urinary tract infection without hematuria, site unspecified (Primary Dx); Acute renal failure, unspecified acute renal failure type; Low magnesium level Social History Tobacco Use Types Packs/Day Years Used Date Smoking Tobacco: Former Cigarettes 1 8 1969 Smokeless Tobacco: Never Alcohol Use Standard Drinks/Week [...] as food, clothing, or medical care? No 10/06/2023 In the past 12 months have y ou been in a relationship with a person who hurts, threatens, or tries to control you? No 10/06/2023 Are you denied basic needs s uch as food, clothing, or medical care? No 10/06/2023 In the past 12 months have y ou been in a relationship with a person who hurts, threatens, or tries to control you? No 10/06/2023 Sex and Gender Information Value Date Recorded Sex Assigned at Male 02/21/2019 3:23 PM EST Legal Sex Male 10:13 PM EDT Gender Identity Male 02/21/2019 3:23 PM EST Sexual Orientation Straight 02/21/2019 3: 23 PM EST documented as of this encounter Plan of Treatment Upcoming Encounters Date Type Department Care Team (Late st Contact Info) Description 01/22/2025 3:30 PM EDT Office Visit [facility] [address] [place] [address] [address]rd Floor, [address] [place] [address] Karie Seals PA-C [address] [place] [address] 02/15/2025 2:00 PM EDT Appointment [facility] [address] [place] [address] Pedro Paez MD [address] [place] [address] 02/15/2025 3:00 PM EDT Office Visit [facility] at [address] [address] Pedro Paez MD [address] [place] [address] [email or web address] documented as of this encounter Results * Urine Culture (10/14/2023 3:12 PM EDT) Special Requests None 10/14/2023 3:13 PM EDT [facility] Urine Culture NO GROWTH 48HRS 10/16/2023 8:28 AM EDT [facility] Urine (Urine) 10/14/2023 3:1 2 PM EDT 10/14/2023 3:25 PM EDT Leila Moran MD MICROBIOLOGY - GENERAL WAQAR EMERY Final Result [address] [address] * (ABNORMAL) Urinalysis (10/14/2023 3:12 PM EDT) COLOR Yellow Yellow [facility] CLARITY Clear [facility] GLUCOSE Negative Negative [facility] BILI Negative Negative [facility] KETONES Negative Negative [facility] SPECIFIC GRAVITY 1.025 1.005 - 1.030 [facility] BLOOD Negative Negative [facility] PH 6.0 5.0 - 8.0 [facility] Protein-UA Negative Negative [facility] NITRITE Negative Negative [facility] Leukocyte esterase, ur 1+(A) Negative [facility] Urine (Urine) 10/14/2023 3:1 2 PM EDT 10/14/2023 3:25 PM EDT us Leila Moran MD URINE ORDERABLES Final Resu lt Performing Organization Address City/[facility]/ZIP Co de Phone Number [address] [address] * Magnesium (10/14/2023 3:12 PM EDT) MAGNESIUM 1.6 1.6 - 2.6 mg/dL [facility] Blood 10/14/2023 3:12 PM EDT 10/14/2023 7:57 PM EDT us Leila Moran MD LAB BLOOD ORDERABLES Final Result Performing Organization Address City/[facility]/ZIP Co de Phone Number [address] [address] * (ABNORMAL) Basic metabolic panel (10/14/2023 3:12 PM EDT) SODIUM 141 133 - 146 mmol/L [facility] CHLORIDE 107 96 - 108 mmol/L [facility] POTASSIUM 4.6 3.3 - 5.1 mmol/L [facility] CO2 23 21 - 35 mmol/L [facility] BUN 25(H) 6 - 19 mg/dL [facility] CREATININE 1.50 0.5 - 1.5 mg/dL [facility] GLUCOSE 84 70 - 99 mg/dL [facility] CALCIUM 9.2 8.4 - 10.3 mg/dL [facility] EGFR 46(L) >59 mL/min/1.7 3m2 [facility] Comment:Estimated glomerular filtration rate calculated using the CKD-EPI refit equation. ANION GAP 16 10 - 20 mmol/L [facility] Blood 10/14/2023 3:12 PM EDT 10/14/2023 7:57 PM EDT us Leila Moran MD LAB BLOOD ORDERABLES Final Result [address] [address] documented in this encounter Visit Diagnoses Diagnosis Urinary tract infection without hematuria, site unspecified- Primary Acute renal failure, unspecified acute renal failure type Low magnesium level documented in this encounter Additional Health Concerns Infection Onset Date Last Indicated Resolved Time CoV-Risk 11/14/2024 11/14/2024 11/25/2024 1:21 AM EDT documented as of this encounter Care Teams Vinyl Welder And Fabricator Relationship Specialty Start Date End Date Leila Moran MD [address] [place] [address] [email or web address] PCP - General 04/22/17 Pedro Paez MD [address] [place] [address] Primary Oncologist Medical Oncology 07/08/20 Alley Nguyen CNP [address] [place] [address] Nurse Practitioner Oncology 06/18/21 documented as of this encounter Additional Source Comments The information contained in this document represents components of the legal health record. It is not the complete legal health record.[facility]
--- OUTSIDE RECORDS SUMMARY | 2024-12-12 11:28 | XMS_ITS | Encounter Summary ---
Author Organization [facility] Address [address] [place] [address] [place] [address] Phone Care Team Providers Care Mop Man Name Role Phone Leila Moran MD Primary Care Provider Pedro Paez MD Unavailable [phone] Jessica Alvarado Unavailable Alley Nguyen CNP Unavailable Encounter Details Date Type Department Care Team (Late st Contact Info) Description 07/22/2020 Transcribe Orders Virtual Department [address] [place] [address] Franky Drew MD [address] [facility], [address] [place] [address] [email or web address] Decreased growth velocity, height (Primary Dx) Social History Tobacco Use Types Packs/Day Years Used Date Smoking Tobacco: Former Cigarettes 1 968 - 1979 Smokeless Tobacco: Never Alcohol Use Standard Drinks/Week Comments Yes 0 (1 standard drink = 0.6 oz pur e alcohol) socially Sex and Gender Information Value Date Recorded Sex Assigned at Male 02/21/2019 3:23 PM EST Legal Sex Male 10:13 PM EDT Gender Identity Male 02/21/2019 3:23 PM EST Sexual Orientation Straight 02/21/2019 3: 23 PM EST documented as of this encounter Plan of Treatment Upcoming Encounters Date Type Department Care Team (Late st Contact Info) Description 01/22/2025 3:30 PM EDT Office Visit [facility] [address] [facility] 3rd Floor, [address] [place] [address] Karie Seals PA-C [address] [place] [address] 02/15/2025 2:00 PM EDT Appointment [facility] [address] [place] [address] Pedro Paez MD [address] [place] [address] 02/15/2025 3:00 PM EDT Office Visit [facility] [address] [place] [address] Pedro Paez MD [address] [place] [address] documented as of this encounter Visit Diagnoses Diagnosis Decreased growth velocity, height- Primary documented in this encounter Additional Health Concerns Infection Onset Date Last Indicated Resolved Time CoV-Risk 10/12/2020 10/12/2020 10/22/2020 1:24 AM EDT CDiff-Risk 10/06/2023 10/06/2023 10/06/2023 5:43 PM EDT CoV-Risk 11/14/2024 11/14/2024 11/25/2024 1:21 AM EDT documented as of this encounter Care Teams Mop Man Relationship Specialty Start Date End Date Leila Moran MD [address] [place] [address] PCP - General 04/22/17 Pedro Paez MD [address] [place] [address] [email or web address] Primary Oncologist Medical Oncology 07/08/20 Jessica Alvarado PA [address] [place] [address] [email or web address] Physician Sales Secretary Oncology 07/19/20 12/15/20 Alley Nguyen CNP [address] [place] [address] [email or web address] Nurse Practitioner Oncology 06/18/21 documented as of this encounter Additional Source Comments The information contained in this document represents components of the legal health record. It is not the complete legal health record.[facility]
--- OUTSIDE RECORDS SUMMARY | 2024-12-12 11:28 | XMS_ITS | Encounter Summary ---
Author Organization [facility] Address [address] [place] [address] Phone Care Team Providers Care Log Feeder Name Role Phone Leila Morna MD Primary Care Provider Pedro Paez MD Unavailable [phone] Jessica Alvarado Unavailable [phone] Alley Nguyen CNP Unavailable Encounter Details Date Type Department Care Team (Late st Contact Info) Description 07/17/2020 Procedure Pass [facility] [address] [place] [address] Social History Tobacco Use Types Packs/Day Years [...] Description 01/22/2025 3:30 PM EDT Office Visit [facility] [address] [facility] [address], [address] [place] [address] Karie Seals PA-C [address] [place] [address] 02/15/2025 2:00 PM EDT Appointment [facility] [address] [place] [address] Pedro Paez MD [address] [place] [address] 02/15/2025 3:00 PM EDT Office Visit [facility] at [facility] [address] [place] [address] Pedro Paez MD [address] [place] [address] documented as of this encounter Visit Diagnoses Not on filedocumented in this encounter Additional Health Concerns Infection Onset Date Last Indicated Resolved Time CoV-Risk 10/12/2020 10/12/2020 10/22/2020 1:24 AM EDT CDiff-Risk 10/06/2023 10/06/2023 10/06/2023 5:43 PM EDT CoV-Risk 11/14/2024 11/14/2024 11/25/2024 1:21 AM EDT documented as of this encounter Care Teams Log Feeder Relationship Specialty Start Date End Date Leila Moran MD [address] [place] [address] PCP - General 04/22/17 Pedro Paez MD [address] [place] [address] Primary Oncologist Medical Oncology 07/08/20 Jessica Alvarado PA [address] [place] [address] [email or web address] Physician Construction Helper Oncology 07/19/20 12/15/20 Alley Nguyen CNP [address] [place] [address] [email or web address] Nurse Practitioner Oncology 06/18/21 documented as of this encounter Additional Source Comments The information contained in this document represents components of the legal health record. It is not the complete legal health record.[facility]
--- OUTSIDE RECORDS SUMMARY | 2024-12-12 11:28 | XMS_ITS | Encounter Summary ---
Author Organization [facility] Address [address] [place] [address] Phone Care Team Providers Care Developer Analyst Name Role Phone Leila Moran MD Primary Care Provider Pedro Paez MD Unavailable [phone] Alley Nguyen CNP Unavailable Encounter Details Date Type Department Care Team (Late st Contact Info) Description 10/13/2023 Transcribe Orders [facility] Laboratory [address] [phone] Leila Moran MD [address] [place] [address] [phone] [email or web address] Screening for prostate cancer (Primary Dx); Hypertension, unspecified type; Coronary artery disease due to lipid rich plaque; Elevated PSA Social History Tobacco Use Types Packs/Day Years [...] Description 01/22/2025 3:30 PM EDT Office Visit [facility] [address] Floor, [address] [place] [address] Karie Seals PA-C [address] [place] [address] 02/15/2025 2:00 PM EDT Appointment [facility] [address] [place] [address] Pedro Paez MD [address] [place] [address] [email or web address] 02/15/2025 3:00 PM EDT Office Visit [facility] at [address] [address] Pedro Paez MD [address] [place] [address] [email or web address] documented as of this encounter Results * Potassium (10/13/2023 9:26 AM EDT) POTASSIUM 4.7 3.3 - 5.1 mmol/L [facility] Blood 10/13/2023 9:26 AM EDT 10/13/2023 9:28 AM EDT us Leila Moran MD LAB BLOOD ORDERABLES Final Result [address] [address] * (ABNORMAL) PSA (screening) (10/13/2023 9:26 AM EDT) PSA 5.32(H) 0 - 4.00 ng/mL [facility] Comment: Test Methodology Reji e801 Patient results determined by assays using different manufacturers or methods may not be comparable. Blood 10/13/2023 9:26 AM EDT 10/13/2023 9:28 AM EDT us Leila Moran MD LAB BLOOD ORDERABLES Final Result Performing Organization Address [facility] Co de Phone Number [address] [address] * (ABNORMAL) Lipid panel (10/13/2023 9:26 AM EDT) HDL 34 mg/dL [facility] Comment: Interpretation <40 mg/dL: Low HDL cholesterol (major risk factor for CHD) Greater than or equal to 60 mg/dL: High HDL cholesterol ( negative risk factor for CHD) HDL - cholesterol is affected by a number of factors, e.g. smoking, excerise, hormones, sex and age. CHOLESTEROL 105 0 - 240 mg/dL [facility] TRIGLYCERIDES 97 30 - 160 mg/dL [facility] LDL 52 50 - 129 mg/dL [facility] Comment: LDL levels in terms of risk for coronary heart disease: <100 mg/dL: Optimal 100-129 mg/dL: Near or above optimal 130-159 mg/dL: Borderline high 160-189 mg/dL: High >190 mg/dL: Very High CARDIAC RISK RATIO 3.1(L) 3.4 - 5.0 C [facility] Blood 10/13/2023 9:26 AM EDT 10/13/2023 9:27 AM EDT us Leila Moran MD LAB BLOOD ORDERABLES Final Result Performing Organization Address [facility] Co de Phone Number [address] [address] documented in this encounter Visit Diagnoses Diagnosis Screening for prostate cancer- Primary Special screening for malignant neoplasm of prostate Hypertension, unspecified type Coronary artery disease due to lipid rich plaque Elevated PSA Elevated prostate specific antigen (PSA) documented in this encounter Additional Health Concerns Infection Onset Date Last Indicated Resolved Time CoV-Risk 11/14/2024 11/14/2024 11/25/2024 1:21 AM EDT documented as of this encounter Care Teams Developer Analyst Relationship Specialty Start Date End Date Leila Moran MD [address] [place] [address] [email or web address] PCP - General 04/22/17 Pedro Paez MD [address] [place] [address] [email or web address] Primary Oncologist Medical Oncology 07/08/20 Alley Nguyen CNP [address] [place] [address] [email or web address] Nurse Practitioner Oncology 06/18/21 documented as of this encounter Additional Source Comments The information contained in this document represents components of the legal health record. It is not the complete legal health record.[facility]
--- OUTSIDE RECORDS SUMMARY | 2024-12-12 11:28 | XMS_ITS | Encounter Summary ---
Author Organization [facility] Address [address] [place] [address] Phone Care Team Providers Care Inspector Grain Mill Products Name Role Phone Leila Moran MD Primary Care Provider Pedro Paez MD Unavailable [phone] Alley Nguyen CNP Unavailable Encounter Details Date Type Department Care Team (Late st Contact Info) Description 09/30/2022 Transcribe Orders [facility] Laboratory 10 [facility] 2nd [place], [place] [id number] Leila Moran MD [address] [place] [address] [id number] [email or web address] Hypertension, unspecified type (Primary Dx); Low vitamin B12 level; Low vitamin D level Social History Tobacco Use Types Packs/Day Years Used Date Smoking Tobacco: Former Cigarettes 1 8 - 1979 Smokeless Tobacco: Never Alcohol Use Standard Drinks/Week Comments Not Currently 0 (1 standard drink = 0.6 oz pur e alcohol) Education Answer Date Recorded Are you interested in more education? Not on aletha e 08/14/2022 Are you concerned about learning? Not on file 08/14/2022 No 08/14/2022 No 08/14/2022 Digital Access Answer Date Recorded No 09/08/2022 No 09/08/2022 Reliable internet access at home? Not on file 09/08/2022 Device with a working camera? Not on file Sex and Gender Information Value Date Recorded Sex Assigned at Male 02/21/2019 3:23 PM EST Legal Sex Male 10:13 PM EDT Gender Identity Male 02/21/2019 3:23 PM EST Sexual Orientation Straight 02/21/2019 3: 23 PM EST documented as of this encounter Plan of Treatment Upcoming Encounters Date Type Department Care Team (Late st Contact Info) Description 01/22/2025 3:30 PM EDT Office Visit [facility] [address] [facility] 3rd Floor, [address] [place] [address] Karie Seals PA-C [address] [place] [address] 02/15/2025 2:00 PM EDT Appointment [facility] [address] [place] [address] Pedro Paez MD [address] [place] [address] 02/15/2025 3:00 PM EDT Office Visit [facility] Center at [facility] 30 [place] [address] Pedro Paez MD [address] [place] [address] documented as of this encounter Results * Vitamin B12 (09/30/2022 10:06 AM EDT) VITAMIN B12 393 232 - 1,245 pg/mL [facility] Blood 09/30/2022 10:0 6 AM EDT 09/30/2022 10:22 AM EDT Leila Moran MD LAB BLOOD ORDERABLES Final Result Performing Organization Address [facility]/ZIP Co de Phone Number [address] [address] * (ABNORMAL) Lipid panel (09/30/2022 10:06 AM EDT) HDL 36 mg/dL [facility] Comment: Interpretation <40 mg/dL: Low HDL cholesterol (major risk factor for CHD) Greater than or equal to 60 mg/dL: High HDL cholesterol ( negative risk factor for CHD) HDL - cholesterol is affected by a number of factors, e.g. smoking, excerise, hormones, sex and age. CHOLESTEROL 206 0 - 240 mg/dL [facility] TRIGLYCERIDES 164(H) 30 - 160 mg/dL [facility] LDL 137(H) 50 - 129 mg/dL [facility] Comment: LDL levels in terms of risk for coronary heart disease: <100 mg/dL: Optimal 100-129 mg/dL: Near or above optimal 130-159 mg/dL: Borderline high 160-189 mg/dL: High >190 mg/dL: Very High CARDIAC RISK RATIO 5.7(H) 3.4 - 5.0 C [facility] Blood 09/30/2022 10:0 6 AM EDT 09/30/2022 10:18 AM EDT Leila Moran MD LAB BLOOD ORDERABLES Final Result Performing Organization Address [facility] Co de Phone Number [address] [address] * (ABNORMAL) Comprehensive metabolic panel (09/30/2022 10:06 AM EDT) SODIUM 143 133 - 146 mmol/L [facility] POTASSIUM 4.4 3.3 - 5.1 mmol/L [facility] CHLORIDE 109(H) 96 - 108 mmol/L [facility] CO2 23 21 - 35 mmol/L [facility] BUN 17 6 - 19 mg/dL [facility] CREATININE 1.10 0.5 - 1.5 mg/dL [facility] GLUCOSE 103(H) 70 - 99 mg/dL [facility] ALBUMIN 4.2 3.9 - 4.8 g/dL [facility] TOTAL PROTEIN 6.5 6.5 - 8.0 g/dL [facility] CALCIUM 9.2 8.4 - 10.3 mg/dL [facility] ALKALINE PHOSPHATASE 64 39 - 117 U/L [facility] TOTAL BILIRUBIN 0.3 0.0 - 1.2 mg/dL [facility] AST 19 0 - 37 U/L [facility] ALT 18 0 - 40 U/L [facility] GLOBULIN 2.3 1 - 4.8 g/dL [facility] EGFR 67 >59 mL/min/1.7 3m2 [facility] Comment:Estimated glomerular filtration rate calculated using the CKD-EPI refit equation. ANION GAP 15 10 - 20 mmol/L [facility] Blood 09/30/2022 10:0 6 AM EDT 09/30/2022 10:22 AM EDT us Leila Moran MD LAB BLOOD ORDERABLES Final Result Performing Organization Address City/State/[facility] Co de Phone Number [address] [address] documented in this encounter Visit Diagnoses Diagnosis Hypertension, unspecified type- Primary Low vitamin B12 level Low vitamin D level documented in this encounter Additional Health Concerns Infection Onset Date Last Indicated Resolved Time CDiff-Risk 10/06/2023 10/06/2023 10/06/2023 5:43 PM EDT CoV-Risk 11/14/2024 11/14/2024 11/25/2024 1:21 AM EDT documented as of this encounter Care Teams Inspector Grain [employer] Relationship Specialty Start Date End Date Leila Moran MD [address] [place] [address] PCP - General 04/22/17 Pedro Paez MD [address] [place] [address] Primary Oncologist Medical Oncology 07/08/20 Alley Nguyen CNP [address] [place] [address] [email or web address] Nurse Practitioner Oncology 06/18/21 documented as of this encounter Additional Source Comments The information contained in this document represents components of the legal health record. It is not the complete legal health record.[facility]
--- OUTSIDE RECORDS SUMMARY | 2024-12-12 11:28 | XMS_ITS | Encounter Summary ---
Author Organization [facility] Address [address] [place] [address] [place] [address] Phone Care Team Providers Care Interactive Digital Media Specialist Name Role Phone Leila Moran MD Primary Care Provider Pedro Paez MD Unavailable [phone] Alley Nguyen CNP Unavailable Encounter Details Date Type Department Care Team (Late st Contact Info) Description 10/01/2021 Procedure [facility], [address] [address] Social History Tobacco Use Types Packs/Day Years Used Date Smoking Tobacco: Former Cigarettes 1 748 - 7668 Smokeless Tobacco: Never Alcohol Use Standard Drinks/Week [...] Description 01/22/2025 3:30 PM EDT Office Visit [facility] [address] [place] [address] 3rd Floor, [address] [place] [address] Karie Seals PA-C 50 [place] [address] 02/15/2025 2:00 PM EDT Appointment [facility] [address] [place] [address] Pedro Paez MD 30 [place] [address] 02/15/2025 3:00 PM EDT Office Visit [facility] at [facility] 30 [place] [address] Pedro Paez MD [address] [place] [address] documented as of this encounter Visit Diagnoses Not on filedocumented in this encounter Additional Health Concerns Infection Onset Date Last Indicated Resolved Time CDiff-Risk 10/06/2023 10/06/2023 10/06/2023 5:43 PM EDT CoV-Risk 11/14/2024 11/14/2024 11/25/2024 1:21 AM EDT documented as of this encounter Care Teams Interactive Digital Media Specialist Relationship Specialty Start Date End Date Leila Moran MD [address] [place] [address] PCP - General 04/22/17 Pedro Paez MD [address] [place] [address] Primary Oncologist Medical Oncology 07/08/20 Alley Nguyen CNP [address] [place] [address] Nurse Practitioner Oncology 06/18/21 documented as of this encounter Additional Source Comments The information contained in this document represents components of the legal health record. It is not the complete legal health record.[facility]
--- OUTSIDE RECORDS SUMMARY | 2024-12-12 11:28 | XMS_ITS | Encounter Summary ---
Author Organization [facility] Address [address] [place] [address] Phone Care Team Providers Care Timber Estimator Name Role Phone Leila Moran MD Primary Care Provider [phone] Pedro Paez MD Unavailable [phone] Alley Nguyen CNP Unavailable Encounter Details Date Type Department Care Team (Late st Contact Info) Description 03/23/2024 Transcribe Orders [facility] Laboratory [address] [phone] Leila Moran MD [address] [place] [address] [phone] [email or web address] Screening for prostate cancer (Primary Dx); Benign prostatic hyperplasia, unspecified whether lower urinary tract symptoms present; Hand cramps; Hypertension, unspecified type Social History Tobacco Use Types Packs/Day Years Used Date Smoking Tobacco: Former Cigarettes 1 1969 Smokeless Tobacco: Never Alcohol Use Standard [...] Description 01/22/2025 3:30 PM EDT Office Visit [facility] [address] 3[address] Floor, [address] [place] [address] Karie Seals PA-C 50 [place] [address] [email or web address] 02/15/2025 2:00 PM EDT Appointment [facility] [address] [place] [address] Pedro Paez MD [address] [place] [address] 02/15/2025 3:00 PM EDT Office Visit [facility] Center at [address] [address] Pedro Paez MD [address] [place] [address] [email or web address] documented as of this encounter Results * Vitamin B12 (03/23/2024 3:56 PM EST) VITAMIN B12 482 232 - 1,245 pg/mL [facility] Blood 03/23/2024 3:56 PM EST 03/23/2024 4:01 PM EST us Leila Moran MD LAB BLOOD ORDERABLES Final Result [address] [address] * (ABNORMAL) PSA (screening) (03/23/2024 3:56 PM EST) PSA 6.56(H) 0 - 4.00 ng/mL [facility] Comment: Test Methodology Reji [id number] Patient results determined by assays using different manufacturers or methods may not be comparable. Blood 03/23/2024 3:56 PM EST 03/23/2024 4:01 PM EST us Leila Moran MD LAB BLOOD ORDERABLES Final Result Performing Organization Address City/[facility]/ZIP Co de Phone Number [address] [address] * Magnesium (03/23/2024 3:56 PM EST) MAGNESIUM 1.6 1.6 - 2.6 mg/dL [facility] Blood 03/23/2024 3:56 PM EST 03/23/2024 4:01 PM EST Leila Moran MD LAB BLOOD ORDERABLES Final Result Performing Organization Address [facility] Co de Phone Number [address] [address] * (ABNORMAL) Basic metabolic panel (03/23/2024 3:56 PM EST) SODIUM 140 133 - 146 mmol/L [facility] CHLORIDE 104 96 - 108 mmol/L [facility] POTASSIUM 4.9 3.3 - 5.1 mmol/L [facility] CO2 27 21 - 35 mmol/L [facility] BUN 21(H) 6 - 19 mg/dL [facility] CREATININE 1.20 0.5 - 1.5 mg/dL [facility] GLUCOSE 88 70 - 99 mg/dL [facility] CALCIUM 9.7 8.4 - 10.3 mg/dL [facility] EGFR 59(L) >59 mL/min/1.7 3m2 [facility] Comment:Estimated glomerular filtration rate calculated using the CKD-EPI refit equation. ANION GAP 14 10 - 20 mmol/L [facility] Blood 03/23/2024 3:56 PM EST 03/23/2024 4:01 PM EST Leila Moran MD LAB BLOOD ORDERABLES Final Result Performing Organization Address [facility] Co de Phone Number [address] [phone] documented in this encounter Visit Diagnoses Diagnosis Screening for prostate cancer- Primary Special screening for malignant neoplasm of prostate Benign prostatic hyperplasia, unspecified whether lower urinary tract symptoms present Hand cramps Cramp of limb Hypertension, unspecified type documented in this encounter Additional Health Concerns Infection Onset Date Last Indicated Resolved Time CoV-Risk 11/14/2024 11/14/2024 11/25/2024 1:21 AM EDT documented as of this encounter Care Teams Timber Estimator Relationship Specialty Start Date End Date Leila Moran MD [address] [place] [address] [email or web address] PCP - General 04/22/17 Pedro Paez MD [address] [place] [address] Primary Oncologist Medical Oncology 07/08/20 Alley Nguyen CNP [address] [place] [address] Nurse Practitioner Oncology 06/18/21 documented as of this encounter Additional Source Comments The information contained in this document represents components of the legal health record. It is not the complete legal health record.[facility]
--- OUTSIDE RECORDS SUMMARY | 2024-12-12 11:28 | XMS_ITS | Encounter Summary ---
Author Organization [facility] Address [address] [place] [address] Phone Care Team Providers Care Assignment Officer Name Role Phone Leila Moran MD Primary Care Provider Pedro Paez MD Unavailable [phone] Jessica Alvarado PA Unavailable [phone] Alley Nguyen CNP Unavailable Encounter Details Date Type Department Care Team (Late st Contact Info) Description 07/23/2020 Transcribe Orders [facility] [address] [place], [place] [phone] Pedro Paez MD [address] [place] [address] [email or web address] Social History Tobacco Use Types Packs/Day Years [...] Description 01/22/2025 3:30 PM EDT Office Visit [facility] [address] [facility] 3rd Floor, [address] [place] [address] Karie Seals PA-C [address] [place] [address] 02/15/2025 2:00 PM EDT Appointment [facility] [address] [place] [address] Pedro Paez MD [address] [place] [address] 02/15/2025 3:00 PM EDT Office Visit [facility] Center at [facility] 30 [place] [address] Pedro Paez MD [address] [place] [address] documented as of this encounter Visit Diagnoses Not on filedocumented in this encounter Additional Health Concerns Infection Onset Date Last Indicated Resolved Time CoV-Risk 10/12/2020 10/12/2020 10/22/2020 1:24 AM EDT CDiff-Risk 10/06/2023 10/06/2023 10/06/2023 5:43 PM EDT CoV-Risk 11/14/2024 11/14/2024 11/25/2024 1:21 AM EDT documented as of this encounter Care Teams Assignment Officer Relationship Specialty Start Date End Date Leila Moran MD [address] [place] [address] PCP - General 04/22/17 Pedro Paez MD [address] [place] [address] [email or web address] Primary Oncologist Medical Oncology 07/08/20 Jessica Alvarado PA [address] [place] [address] [email or web address] Physician Assignment Officer Oncology 07/19/20 12/15/20 Alley Nguyen CNP [address] [place] [address] [email or web address] Nurse Practitioner Oncology 06/18/21 documented as of this encounter Additional Source Comments The information contained in this document represents components of the legal health record. It is not the complete legal health record.[facility]
--- OUTSIDE RECORDS SUMMARY | 2024-12-12 11:28 | XMS_ITS | Encounter Summary ---
Author Organization [facility] Address [address] [place] [address] Phone Care Team Providers Care Surface Hydrologist Name Role Phone Leila Moran MD Primary Care Provider Pedro Paez MD Unavailable [phone] Jessica Alvarado Unavailable Alley Nguyen CNP Unavailable Encounter Details Date Type Department Care Team (Late st Contact Info) Description 11/08/2017 Ancillary Orders [facility], X-Ray - [address] [address] Terrence Patino MD [address] [place] [address] [facility] Social History Tobacco Use Types Packs/Day Years Used Date Smoking Tobacco: Former Smokeless Tobacco: Never Alcohol Use Standard Drinks/Week [...] Description 01/22/2025 3:30 PM EDT Office Visit [facility] [address] 3rd Floor, [address] [place] [address] Karie Seals PA-C 50 [place] [address] 02/15/2025 2:00 PM EDT Appointment [facility] Laboratory 30 [place] [address] Pedro Paez MD [address] [place] [address] 02/15/2025 3:00 PM EDT Office Visit [facility] Center at [facility] 30 [place] [address] Pedro Paez MD [address] [place] [address] documented as of this encounter Results * XR ABDOMEN 1 VIEW (11/08/2017 1:22 PM EDT) Anatomical Region Laterality Modality Abdomen Radiographic Rachell ging 11/08/2017 3:12 PM EDT Impressions 11/08/2017 3:13 PM EDT No opaque urinary calculi visualized. Chronic cholelithiasis. POS [id number] Narrative 11/08/2017 3:13 PM EDT COMPARISON: 10/27/2016 FINDINGS: AP supine views were obtained revealing a prominent chronic lamellated gallbladder calculus. No opaque urinary calculi are noted. Visualized skeletal structures are grossly stable. Procedure Note Neel Paulson MD - 11/08/2017 COMPARISON: 10/27/2016 FINDINGS: AP supine views were obtained revealing a prominent chronic lamellatedgallbladder calculus. No opaque urinary calculi are noted. Visualizedskeletal structures are grossly stable. IMPRESSION: No opaque urinary calculi visualized. Chronic cholelithiasis. 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 documented in this encounter Additional Health Concerns Infection Onset Date Last Indicated Resolved Time CoV-Risk 05/02/2020 05/02/2020 05/12/2020 1:25 AM EST CoV-Exposed Comment:Recent close contact documented in the COVID-19 PCR/PRO order 05/24/2020 05/24/2020 06/08/2020 1:[address] CoV-Risk 10/12/2020 10/12/2020 10/22/2020 1:24 AM EDT CDiff-Risk 10/06/2023 10/06/2023 10/06/2023 5:43 PM EDT CoV-Risk 11/14/2024 11/14/2024 11/25/2024 1:21 AM EDT documented as of this encounter Care Teams Surface Hydrologist Relationship Specialty Start Date End Date Leila Moran MD [address] [place] [address] [email or web address] PCP - General 04/22/17 Pedro Paez MD [address] [place] [address] [email or web address] Primary Oncologist Medical Oncology 07/08/20 Jessica Alvarado PA [address] [place] [address] [email or web address] Physician Medical Genetics Director Oncology 07/19/20 12/15/20 Alley Nguyen CNP [address] [place] [address] Nurse Practitioner Oncology 06/18/21 documented as of this encounter Additional Source Comments The information contained in this document represents components of the legal health record. It is not the complete legal health record.[facility]
--- OUTSIDE RECORDS SUMMARY | 2024-12-12 11:28 | XMS_ITS | Encounter Summary ---
Author Organization [facility] Address [address] [place] [address] Phone Care Team Providers Care Dental Hygiene Teacher Name Role Phone Leila Moran MD Primary Care Provider Pedro Paez MD Unavailable [phone] Jessica Alvarado Unavailable [phone] Alley Nguyen CNP Unavailable Encounter Details Date Type Department Care Team (Late st Contact Info) Description 11/09/2017 Transcribe Orders [facility] Laboratory [address] [address] Terrence Patino MD [address] [place] [address] [address] [place] [address] Prostate cancer (Primary Dx) Social History Tobacco Use Types [...] Description 01/22/2025 3:30 PM EDT Office Visit [facility] [address] 3rd Floor, [address] [place] [address] Karie Seals PA-C 50 [place] [address] 02/15/2025 2:00 PM EDT Appointment [facility] [address] [place] [address] Pedro Paez MD [address] [place] [address] 02/15/2025 3:00 PM EDT Office Visit [facility] at [address] [address] Pedro Paez MD [address] [place] [address] documented as of this encounter Results * (ABNORMAL) PSA (screening) (11/09/2017 10:15 AM EDT) PSA 4.20(H) 0 - 4.00 ng/mL [facility] Blood 11/09/2017 10:1 5 AM EDT 11/09/2017 10:22 AM EDT us Terrence Patino MD LAB BLOOD ORDERABLES Final Result [address] [address] documented in this encounter Visit Diagnoses Diagnosis Prostate cancer- Primary Malignant neoplasm of prostate documented in this encounter [...] documented as of this encounter Care Teams Dental Hygiene Teacher Relationship Specialty Start Date End Date Leila Moran MD [address] [place] [address] [email or web address] PCP - General 04/22/17 Pedro Paez MD [address] [place] [address] [email or web address] Primary Oncologist Medical Oncology 07/08/20 Jessica Alvarado PA [address] [place] [address] [email or web address] Physician Shoe Stamper Oncology 07/19/20 12/15/20 Alley Nguyen CNP [address] [place] [address] [email or web address] Nurse Practitioner Oncology 06/18/21 documented as of this encounter Additional Source Comments The information contained in this document represents components of the legal health record. It is not the complete legal health record.[facility]
--- OUTSIDE RECORDS SUMMARY | 2024-12-12 11:28 | XMS_ITS | Encounter Summary ---
Author Organization [facility] Address [address] [place] [address] Phone Care Team Providers Care Pilot Control Operator Helper Name Role Phone Leila Moran MD Primary Care Provider Pedro Paez MD Unavailable [phone] Alley Nguyen CNP Unavailable Encounter Details Date Type Department Care Team (Late st Contact Info) Description 02/24/2021 Transcribe Orders [facility] Laboratory [address] [id number] Leila Moran MD [address] [place] [address] [phone] [email or web address] Fatigue, unspecified type (Primary Dx); Fall, subsequent encounter Social History Tobacco Use Types Packs/Day Years [...] Description 01/22/2025 3:30 PM EDT Office Visit [facility] [address] 3rd Floor, [address] [place] [address] Karie Seals PA-C [address] [place] [address] 02/15/2025 2:00 PM EDT Appointment [facility] [address] [place] [address] Pedro Paez MD [address] [place] [address] 02/15/2025 3:00 PM EDT Office Visit [facility] at [address] [address] Pedro Paez MD [address] [place] [address] documented as of this encounter Results * (ABNORMAL) Magnesium (02/24/2021 4:07 PM EST) MAGNESIUM 1.5(L) 1.6 - 2.6 mg/dL [facility] Blood 02/24/2021 4:07 PM EST 02/24/2021 4:12 PM EST Leila Moran MD LAB BLOOD ORDERABLES Final Result [address] [address] * TSH (02/24/2021 4:07 PM EST) TSH 0.63 0.27 - 4.20 uIU/mL [facility] Blood 02/24/2021 4:07 PM EST 02/24/2021 4:12 PM EST us Leila Moran MD LAB BLOOD ORDERABLES Final Result [facility] [address] [place] [address] * (ABNORMAL) CBC and differential (02/24/2021 4:07 PM EST) WBC 6.52 4.00 - 11.00 K/uL [facility] RBC 4.23 3.90 - 5.69 M/uL [facility] HGB 12.0(L) 12.4 - 17.3 g/dL [facility] HCT 37.4 37.0 - 51.0 % [facility] PLT 259 140 - 430 K/uL [facility] MCV 88.4 78.0 - 97.0 fL [facility] Comment:checked MCH 28.4 25.0 - 33.0 pg [facility] MCHC 32.1 32.0 - 36.0 g/dL [facility] RDW 14.5 11.0 - 15.0 % [facility] MPV 9.3 8.4 - 12.8 fl [facility] NRBC 0.00 0 /100 WBCs [facility] ABSOLUTE NRBC 0.00 0 K/uL [facility] DIFF METHOD Auto [facility] NEUTS 65.5 43.0 - 75.0 % [facility] LYMPHS 17.8(L) 18.2 - 47.4 % [facility] MONOS 9.2 4.00 - 11.00 % [facility] EOS 6.4 0.0 - 8.0 % [facility] BASOS 0.8 0.0 - 2.0 % [facility] Granulocytes, immature (%) 0.3 0.0 - 0.9 % [facility] ABSOLUTE NEUTS 4.27 1.80 - 7.70 K/uL [facility] ABSOLUTE LYMPHS 1.16 1.00 - 3.10 K/uL [facility] ABSOLUTE MONOS 0.60 0.20 - 0.80 K/uL [facility] ABSOLUTE EOS 0.42 0.00 - 0.80 K/uL [facility] ABSOLUTE BASOS 0.05 0.00 - 0.09 K/uL [facility] Granulocytes, immature 0.02 0.00 - 0.05 K/uL [facility] Blood 02/24/2021 4:07 PM EST 02/24/2021 4:12 PM EST Leila Moran MD LAB BLOOD ORDERABLES Final Result Performing Organization Address City/[facility] Co de Phone Number [address] [address] * (ABNORMAL) Comprehensive metabolic panel (02/24/2021 4:07 PM EST) SODIUM 142 133 - 146 mmol/L [facility] POTASSIUM 4.2 3.3 - 5.1 mmol/L [facility] CHLORIDE 105 96 - 108 mmol/L [facility] CO2 25 21 - 35 mmol/L [facility] BUN 19 6 - 19 mg/dL [facility] CREATININE 0.70 0.5 - 1.5 mg/dL [facility] GLUCOSE 106(H) 70 - 99 mg/dL [facility] ALBUMIN 4.2 3.9 - 4.8 g/dL [facility] TOTAL PROTEIN 6.4(L) 6.5 - 8.0 g/dL [facility] CALCIUM 9.4 8.4 - 10.3 mg/dL [facility] ALKALINE PHOSPHATASE 68 39 - 117 U/L [facility] TOTAL BILIRUBIN 0.2 0.0 - 1.2 mg/dL [facility] AST 18 0 - 37 U/L [facility] ALT 14 0 - 40 U/L [facility] GLOBULIN 2.2 1 - 4.8 g/dL [facility] EGFR 88 >59 mL/min/1.7 3m2 [facility] Comment:Estimated glomerular filtration rate calculated using the CKD-EPI equation. ANION GAP 16 10 - 20 mmol/L [facility] Blood 02/24/2021 4:07 PM EST 02/24/2021 4:12 PM EST Leila Moran MD LAB BLOOD ORDERABLES Final Result [facility] [address] [place] [address] documented in this encounter Visit Diagnoses Diagnosis Fatigue, unspecified type- Primary Fall, subsequent encounter documented in this encounter Additional Health Concerns Infection Onset Date Last Indicated Resolved Time CDiff-Risk 10/06/2023 10/06/2023 10/06/2023 5:43 PM EDT CoV-Risk 11/14/2024 11/14/2024 11/25/2024 1:21 AM EDT documented as of this encounter Care Teams Pilot Control Operator Helper Relationship Specialty Start Date End Date Leila Moran MD [address] [place] [address] [email or web address] PCP - General 04/22/17 Pedro Paez MD [address] [place] [address] Primary Oncologist Medical Oncology 07/08/20 Alley Nguyen CNP [address] [place] [address] Nurse Practitioner Oncology 06/18/21 documented as of this encounter Additional Source Comments The information contained in this document represents components of the legal health record. It is not the complete legal health record.[facility]
--- OUTSIDE RECORDS SUMMARY | 2024-12-12 11:28 | XMS_ITS | Encounter Summary ---
Author Organization [facility] Address [address] [place] [address] Phone Care Team Providers Care Medical Laboratory Specialist Name Role Phone Leila Moran MD Primary Care Provider Pedro Paez MD Unavailable [phone] Jessica Alvarado Unavailable Alley Nguyen CNP Unavailable Encounter Details Date Type Department Care Team (Late st Contact Info) Description 11/09/2017 Transcribe Orders [facility] Laboratory [address] [phone] Leila Moran MD [address] [place] [address] [phone] Nodular circumscribed lipomatosis (Primary Dx); Hypertension, unspecified type; Insect bite, sequela; Low vitamin B12 level Social History Tobacco Use Types Packs/Day [...] Description 01/22/2025 3:30 PM EDT Office Visit [facility] [address] [facility] 3rd Floor, [address] [place] [address] Karie Seals PA-C [address] [place] [address] 02/15/2025 2:00 PM EDT Appointment [facility] [address] [place] [address] Pedro Paez MD [address] [place] [address] 02/15/2025 3:00 PM EDT Office Visit [facility] at [address] [address] Pedro Paez MD [address] [place] [address] documented as of this encounter Results * Vitamin B12 (11/09/2017 10:15 AM EDT) VITAMIN B12 1,044 232 - 1,245 pg/mL [facility] Blood 11/09/2017 10:1 5 AM EDT 11/09/2017 10:22 AM EDT us Leila Moran MD LAB BLOOD ORDERABLES Final Result [address] [address] * TSH (11/09/2017 10:15 AM EDT) Pathologist [facility] TSH 2.06 0.27 - 4.20 uIU/mL [facility] Blood 11/09/2017 10:1 5 AM EDT 11/09/2017 10:22 AM EDT us Leila Moran MD LAB BLOOD ORDERABLES Final Result Performing Organization Address [facility]/ZIP Co de Phone Number [address] [address] * (ABNORMAL) 25-OH vitamin D (11/09/2017 10:15 AM EDT) 25 OH VIT D (TOTAL) 26(L) 30 - 1,000 ng/mL [facility] Blood 11/09/2017 10:1 5 AM EDT 11/09/2017 10:22 AM EDT us Leila Mroan MD LAB BLOOD ORDERABLES Final Result Performing Organization Address [facility] de Phone Number [address] [address] * Lyme screen with reflex to Western blot, blood (11/09/2017 10:15 AM EDT) Pathologist [facility] Lyme AB IgG Negative Negative [facility] Lyme AB IgM Negative Negative [facility] Blood 11/09/2017 10:1 5 AM EDT 11/09/2017 10:22 AM EDT us Leila Moran MD LAB BLOOD ORDERABLES Edited Result - Final Performing Organization Address [facility] Co de Phone Number [address] [address] * CBC (11/09/2017 10:15 AM EDT) WBC 9.58 3.40 - 11.20 K/uL [facility] RBC 5.00 4.50 - 5.50 M/uL [facility] HGB 15.5 13.0 - 17.0 g/dL [facility] HCT 45.9 40.0 - 51.0 % [facility] PLT 255 130 - 400 K/uL [facility] MCV 91.8 79.0 - 98.0 fL [facility] MCH 31.0 27.0 - 34.8 pg [facility] MCHC 33.8 31.5 - 36.0 g/dL [facility] RDW 13.5 10.8 - 14.6 % [facility] MPV 9.4 9.4 - 12.4 [facility] NRBC 0.00 /100 WBCs [facility] ABSOLUTE NRBC 0.00 K/uL [facility] Blood 11/09/2017 10:1 5 AM EDT 11/09/2017 10:22 AM EDT Leila Moran MD LAB BLOOD ORDERABLES Final Result Performing Organization Address [facility] Co de Phone Number [address] [address] * (ABNORMAL) Lipid panel (11/09/2017 10:15 AM EDT) HDL 42 mg/dL [facility] Comment: Interpretation: Risk Level Males Decreased >45 mg/dL Average 40-45 mg/dL Increased <40 mg/dL CHOLESTEROL 198 0 - 240 mg/dL [facility] TRIGLYCERIDES 192(H) 30 - 160 mg/dL [facility] LDL 118 50 - 129 mg/dL [facility] Comment: LDL levels in terms of risk for coronary heart disease: <100 mg/dL: Optimal 100-129 mg/dL: Near or above optimal 130-159 mg/dL: Borderline high 160-189 mg/dL: High >190 mg/dL: Very High CARDIAC RISK RATIO 4.7 3.4 - 5.0 C [facility] Blood 11/09/2017 10:1 5 AM EDT 11/09/2017 10:22 AM EDT Leila Moran MD LAB BLOOD ORDERABLES Final Result Performing Organization Address [facility] Co de Phone Number [address] [address] * (ABNORMAL) Comprehensive metabolic panel (11/09/2017 10:15 AM EDT) SODIUM 142 133 - 146 mmol/L [facility] POTASSIUM 4.5 3.3 - 5.1 mmol/L [facility] CHLORIDE 106 96 - 108 mmol/L [facility] CO2 24 21 - 35 mmol/L [facility] BUN 17 6 - 19 mg/dL [facility] CREATININE 1.00 0.5 - 1.5 mg/dL [facility] GLUCOSE 96 70 - 99 mg/dL [facility] ALBUMIN 3.8(L) 3.9 - 4.8 g/dL [facility] TOTAL PROTEIN 6.7 6.5 - 8.0 g/dL [facility] CALCIUM 9.1 8.4 - 10.3 mg/dL [facility] ALKALINE PHOSPHATASE 58 39 - 117 U/L [facility] TOTAL BILIRUBIN 0.5 0.0 - 1.2 mg/dL [facility] AST 16 0 - 37 U/L [facility] ALT 20 0 - 40 U/L [facility] GLOBULIN 2.9 1 - 4.8 g/dL [facility] EGFR 71 >59 mL/min/1.7 3m2 [facility] Comment:If patient is black, multiply result by 1.159. Estimated glomerular filtration rate calculated using the CKD-EPI equation. 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 Hypertension, unspecified type Insect bite, sequela Low vitamin B12 level documented in this encounter Additional Health [...] documented as of this encounter Care Teams Medical Laboratory Specialist Relationship Specialty Start Date End Date Leila Moran MD [address] [place] [address] PCP - General 04/22/17 Pedro Paez MD [address] [place] [address] Primary Oncologist Medical Oncology 07/08/20 Jessica Alvarado PA [address] [place] [address] [email or web address] Physician Mastic Sprayer Oncology 07/19/20 12/15/20 Alley Nguyen CNP [address] [place] [address] Nurse Practitioner Oncology 06/18/21 documented as of this encounter Additional Source Comments The information contained in this document represents components of the legal health record. It is not the complete legal health record.[facility]
--- OUTSIDE RECORDS SUMMARY | 2024-12-12 11:28 | XMS_ITS | Encounter Summary ---
Author Organization [facility] Address [address] [place] [address] Phone Care Team Providers Care Nutritionists Name Role Phone Leila Moran MD Primary Care Provider [phone] Pedro Paez MD Unavailable [phone] Alley Nguyen CNP Unavailable Encounter Details Date Type Department Care Team (Late st Contact Info) Description 10/26/2023 Procedure Pass Echo [facility] [address] [place] [address] Social History Tobacco Use Types Packs/Day Years Used Date Smoking Tobacco: Former Cigarettes 1 968 - 1969 Smokeless Tobacco: Never Alcohol Use Standard [...] Description 01/22/2025 3:30 PM EDT Office Visit [facility] [address] [facility] 3rd Floor, [address] [place], [place] [phone] Karie Seals PA-C 50 [place] [address] 02/15/2025 2:00 PM EDT Appointment [facility] 30 [place] [address] Pedro Paez MD 30 [place] [address] 02/15/2025 3:00 PM EDT Office Visit [facility] 30 [place] [address] Pedro Paez MD 30 [place] [address] documented as of this encounter Visit Diagnoses Not on filedocumented in this encounter Additional Health Concerns Infection Onset Date Last Indicated Resolved Time CoV-Risk 11/14/2024 11/14/2024 11/25/2024 1:21 AM EDT documented as of this encounter Care Teams Nutritionists Relationship Specialty Start Date End Date Leila Moran MD [address] [place] [address] PCP - General 04/22/17 Pedro Paez MD [address] [place] [address] Primary Oncologist Medical Oncology 07/08/20 Alley Nguyen CNP [address] [place] [address] Nurse Practitioner Oncology 06/18/21 documented as of this encounter Additional Source Comments The information contained in this document represents components of the legal health record. It is not the complete legal health record.[facility]
--- OUTSIDE RECORDS SUMMARY | 2024-12-12 11:28 | XMS_ITS | Encounter Summary ---
Author Organization [facility] Address [address] [place] [address] [address] [place] [address] Phone Care Team Providers Care Traffic Ii Manager Name Role Phone Leila Moran MD Primary Care Provider [phone] Pedro Paez MD Unavailable [phone] Alley Nguyen CNP Unavailable Reason for Referral * - New Request Specialty Diagnoses / Procedures Referred By Contac t Referred To Contact Radiology Diagnoses Essential hypertension Coronary artery disease involving [place] coronary artery of [place] heart without angina pectoris MAHAN (dyspnea on exertion) Procedures US Lower Extremity Arteries (ROCK) Physio Complete Bilat Armand Fonseca MD [address] [facility], [address] [place] [address] Phone: tel: fax: mailto: Referral ID Status Reason Start Date Expiration Date V isits Requested Visits Authorized [id number] New Request 10/04/2024 1 1 Encounter Details Date Type Department Care Team (Latest Contact Info) Description 10/04/2024 Ancillary Orders [facility] [address] [place] [address] 3rd Floor, [address] [place] [address] Armand Fonseca MD [address] [place] [address], [facility] [address] [place] [address] [email or web address] Essential hypertension (Primary Dx); Coronary artery disease involving [place] coronary artery of [place] heart without angina pectoris; MAHAN (dyspnea on exertion) Social History Tobacco Use Types Packs/Day Years [...] Description 01/22/2025 3:30 PM EDT Office Visit [facility] [address] [place] [address] 3rd Floor, [address] [place] [address] Karie Seals PA-C [address] [place] [address] [email or web address] 02/15/2025 2:00 PM EDT Appointment [facility] 30 [place] [address] Pedro Paez MD [address] [place] [address] [email or web address] 02/15/2025 3:00 PM EDT Office Visit [facility] 30 [place] [address] Pedro Paez MD [address] [place] [address] documented as of this encounter Results * US Lower Extremity Arteries (ROCK) Physio [...] 1.0; waveform is multiphasic. Armand Fonseca MD US VASCULAR Final Resul t documented in this encounter Visit Diagnoses Diagnosis Essential hypertension Unspecified essential hypertension Coronary artery disease involving [place] coronary artery of [place] heart without angina pectoris MAHAN (dyspnea on exertion) Other dyspnea and respiratory abnormality Essential hypertension- Primary Unspecified essential hypertension Coronary artery disease involving [place] coronary artery of [place] heart without angina pectoris MAHAN (dyspnea on exertion) Other dyspnea and respiratory abnormality documented in this encounter Additional Health Concerns Infection Onset Date Last Indicated Resolved Time CoV-Risk 11/14/2024 11/14/2024 11/25/2024 1:21 AM EDT Assessment Noted Time PHQ-9 Depression Total Score: 3 06/08/19 25 2:22 PM EST documented as of this encounter Care Teams Traffic Ii Manager Relationship Specialty Start Date End Date Leila Moran MD [address] [place] [address] PCP - General 04/22/17 Pedro Paez MD [address] [place] [address] Primary Oncologist Medical Oncology 07/08/20 Alley Nguyen CNP [address] [place] [address] Nurse Practitioner Oncology 06/18/21 documented as of this encounter Additional Source Comments The information contained in this document represents components of the legal health record. It is not the complete legal health record.[facility]
--- OUTSIDE RECORDS SUMMARY | 2024-12-12 11:28 | XMS_ITS | Encounter Summary ---
Author Organization [facility] Address [address] [place] [address] Phone Care Team Providers Care Police Liaison Officer Name Role Phone Leila Moran MD Primary Care Provider Pedro Paez MD Unavailable [phone] Jessica Alvarado Unavailable [phone] Alley Nguyen CNP Unavailable Encounter Details Date Type Department Care Team (Late st Contact Info) Description 07/29/2020 Procedure Pass [facility] [address] [place] [address] Social History Tobacco Use Types Packs/Day Years [...] PM EST documented as of this encounter Functional Status * Calculated C-SSRS Risk Score (Lifetime/Recent) Answer Date of Assessment Author No Risk Indicated 07/31/2020 7:02 AM EDT Layne Catalan RN * Notus Suicide Severity Rating Scale (Screener/Recent Self-Report) Question Answer Date of Assessment Author 2. Non-Specific Active Suici tristin Thoughts (Past 1 Month) No 07/31/2020 7:02 AM EDT Adore Tamez RN documented as of this encounter Plan of Treatment Upcoming Encounters Date Type Department Care Team (Late st Contact Info) Description 01/22/2025 3:30 PM EDT Office Visit [facility] [address] [place] [address] 3rd Floor, [address] [place] [address] Karie Seals PA-C [address] [place] [address] 02/15/2025 2:00 PM EDT Appointment [facility] 30 [place] [address] Pedro Paez MD [address] [place] [address] 02/15/2025 3:00 PM EDT Office Visit [facility] 30 [place] [address] Pedro Paez MD [address] [place] [address] documented as of this encounter Visit Diagnoses Not on filedocumented in this encounter Additional Health Concerns Infection Onset Date Last Indicated Resolved Time CoV-Risk 10/12/2020 10/12/2020 10/22/2020 1:24 AM EDT CDiff-Risk 10/06/2023 10/06/2023 10/06/2023 5:43 PM EDT CoV-Risk 11/14/2024 11/14/2024 11/25/2024 1:21 AM EDT documented as of this encounter Care Teams Police Liaison Officer Relationship Specialty Start Date End Date Leila Moran MD [address] [place] [address] [email or web address] PCP - General 04/22/17 Pedro Paez MD [address] [place] [address] [email or web address] Primary Oncologist Medical Oncology 07/08/20 Jessica Alvarado PA [address] [place] [address] [email or web address] Physician Stone Rougher Oncology 07/19/20 12/15/20 Alley Nguyen CNP [address] [place] [address] [email or web address] Nurse Practitioner Oncology 06/18/21 documented as of this encounter Additional Source Comments The information contained in this document represents components of the legal health record. It is not the complete legal health record.[facility]
--- OUTSIDE RECORDS SUMMARY | 2024-12-12 11:28 | XMS_ITS | Encounter Summary ---
Author Organization [facility] Address [address] [place] [address] Phone Care Team Providers Care Facilities Operations Technician Name Role Phone Leila Moran MD Primary Care Provider [phone] Pedro Paez MD Unavailable [phone] Alley Nguyen CNP Unavailable Encounter Details Date Type Department Care Team (Late st Contact Info) Description 11/14/2024 Ancillary Orders [facility], X-Ray - [address] [address] Indira Villafana PA [address] [place] [address] [email or web address] Cough, unspecified type (Primary Dx) Social History Tobacco Use Types [...] Description 01/22/2025 3:30 PM EDT Office Visit [facility] [address] Floor, [address] [place] [address] Karie Seals PA-C [address] [place] [address] 02/15/2025 2:00 PM EDT Appointment [facility] [address] [place] [address] Pedro Paez MD 30 [place] [address] 02/15/2025 3:00 PM EDT Office Visit [facility] [address] [place] [address] Pedro Paez MD [address] [place] [address] documented as of this encounter Results * XR CHEST PA AND LATERAL 2 VIEWS (11/14/2024 3:38 PM EDT) Anatomical Region Laterality Modality Chest Computed Radiogr aphy 11/14/2024 4:09 PM EDT Impressions 11/14/2024 4:10 PM EDT No acute abnormality. Narrative 11/14/2024 4:10 PM EDT XR CHEST PA AND LATERAL 2 VIEWS Referring clinician's provided indication for this examination in [facility]: Pain COMPARISON: XR CHEST 1 VIEW FINDINGS: Devices/Tubes/Lines: None. Lungs: Normal. The lungs are clear. No focal consolidation or pulmonary edema. Pleura: Normal. No pleural effusion or pneumothorax. Heart/Mediastinum: Normal heart and mediastinum. Bones/Soft Tissues: Normal. No significant skeletal abnormality. Procedure Note Glen Amador MD - 11/14/2024 XR CHEST PA AND LATERAL 2 VIEWS Referring clinician's provided indication for this examination in [facility]:Pain COMPARISON: XR CHEST 1 VIEW FINDINGS: Devices/Tubes/Lines: None. Lungs: Normal. The lungs are clear. No focal consolidation or pulmonaryedema. Pleura: Normal. No pleural effusion or pneumothorax. Heart/Mediastinum: Normal heart and mediastinum. Bones/Soft Tissues: Normal. No significant skeletal abnormality. IMPRESSION: No acute abnormality. Indira FREITAS IMG XR CHEST Final Result documented in this encounter Visit Diagnoses Diagnosis Cough, unspecified type- Primary Cough, unspecified type documented in this encounter Additional Health Concerns Infection Onset Date Last Indicated Resolved Time CoV-Risk 11/14/2024 11/14/2024 11/25/2024 1:21 AM EDT Assessment Noted Time PHQ-9 Depression Total Score: 3 06/08/19 2:22 PM EST documented as of this encounter Care Teams Facilities Operations Technician Relationship Specialty Start Date End Date Leila Moran MD [address] [place] [address] [email or web address] PCP - General 04/22/17 Pedro Paez MD [address] [place] [address] Primary Oncologist Medical Oncology 07/08/20 Alley Nguyen CNP [address] [place] [address] Nurse Practitioner Oncology 06/18/21 documented as of this encounter Additional Source Comments The information contained in this document represents components of the legal health record. It is not the complete legal health record.[facility]
--- OUTSIDE RECORDS SUMMARY | 2024-12-12 11:28 | XMS_ITS | Encounter Summary ---
Author Organization [facility] Address [address] [place] [address] Phone Care Team Providers Care Talent Consultant Name Role Phone Leila Moran MD Primary Care Provider Pedro Paez MD Unavailable [phone] Jessica Alvarado Unavailable [phone] Alley Nguyen CNP Unavailable Encounter Details Date Type Department Care Team (Late st Contact Info) Description 07/31/2020 Procedure Pass [facility] [address] [place] [address] Social History Tobacco Use Types Packs/Day Years [...] 7:02 AM EDT Layne Catalan RN * [place] Suicide Severity Rating Scale (Screener/Recent Self-Report) Question Answer Date of Assessment Author 2. Non-Specific Active Suici tristin Thoughts (Past 1 Month) No 07/31/2020 7:02 AM EDT Adore Tamez RN documented as of this encounter Plan of Treatment Upcoming Encounters Date Type Department Care Team (Late st Contact Info) Description 01/22/2025 3:30 PM EDT Office Visit [facility] [address] [place] [address] [address]rd Floor, [address] [place] [address] Karie Seals PA-C [address] [place] [address] 02/15/2025 2:00 PM EDT Appointment [facility] [address] [place] [address] Pedro Paez MD [address] [place] [address] 02/15/2025 3:00 PM EDT Office Visit [facility] [address] [place] [address] Pedro Paez MD [address] [place] [address] documented as of this encounter Visit Diagnoses Not on filedocumented in this encounter Additional Health Concerns Infection Onset Date Last Indicated Resolved Time CoV-Risk 10/12/2020 10/12/2020 10/22/2020 1:24 AM EDT CDiff-Risk 10/06/2023 10/06/2023 10/06/2023 5:43 PM EDT CoV-Risk 11/14/2024 11/14/2024 11/25/2024 1:21 AM EDT documented as of this encounter Care Teams Talent Consultant Relationship Specialty Start Date End Date Leila Moran MD [address] [place] [phone] [email or web address] PCP - General 04/22/17 Pedro Paez MD [address] [place] [address] [email or web address] Primary Oncologist Medical Oncology 07/08/20 Jessica Alvarado PA [address] [place] [address] [email or web address] Physician Creative Producer Oncology 07/19/20 12/15/20 Alley Nguyen CNP [address] [place] [address] [email or web address] Nurse Practitioner Oncology 06/18/21 documented as of this encounter Additional Source Comments The information contained in this document represents components of the legal health record. It is not the complete legal health record.[facility]
--- OUTSIDE RECORDS SUMMARY | 2024-12-12 11:29 | XMS_ITS | Encounter Summary ---
Author Organization [facility] Address [address] [place] [address] Phone Care Team Providers Care Granite Countertop Installer Name Role Phone Leila Moran MD Primary Care Provider Pedro Paez MD Unavailable [phone] Jessica Alvarado PA Unavailable [phone] Alley Nguyen CNP Unavailable Encounter Details Date Type Department Care Team (Late st Contact Info) Description 01/22/2020 Transcribe Orders [facility] [address] [place] [address] Leila Moran MD [address] [place] [address] [email or web address] Social History Tobacco Use Types Packs/Day Years [...] Description 01/22/2025 3:30 PM EDT Office Visit [facility] [address], [address] [place] [address] Karie Seals PA-C [address] [place] [address] 02/15/2025 2:00 PM EDT Appointment [facility] [address] [place] [address] Pedro Paez MD [address] [place] [address] 02/15/2025 3:00 PM EDT Office Visit [facility] 30 [place] [address] Pedro Paez MD [address] [place] [address] documented as of this encounter Visit Diagnoses [...] documented as of this encounter Care Teams Granite Countertop Installer Relationship Specialty Start Date End Date Leila Moran MD [address] [place] [phone] [email or web address] PCP - General 04/22/17 Pedro Paez MD [address] [place] [address] [email or web address] Primary Oncologist Medical Oncology 07/08/20 Jessica Alvarado PA [address] [place] [address] [email or web address] Physician Civil Project Engineer Oncology 07/19/20 12/15/20 Alley Nguyen CNP [address] [place] [address] [email or web address] Nurse Practitioner Oncology 06/18/21 documented as of this encounter Additional Source Comments The information contained in this document represents components of the legal health record. It is not the complete legal health record.[facility]
--- OUTSIDE RECORDS SUMMARY | 2024-12-12 11:29 | XMS_ITS | Encounter Summary ---
Author Organization [facility] Address [address] [place] [address] Phone Care Team Providers Care Casino Cage Cashier Name Role Phone Leila Moran MD Primary Care Provider Pedro Paez MD Unavailable [phone] Jessica Alvarado Unavailable [phone] Alley Nguyen CNP Unavailable Encounter Details Date Type Department Care Team (Late st Contact Info) Description 03/09/2019 Procedure Pass [place] Admitting Dept - Virtual Department [address] [place] [address] Social History Tobacco Use Types Packs/Day Years Used Date Smoking Tobacco: Former Cigarettes Q uit: 1980 Smokeless Tobacco: Never Alcohol Use Standard Drinks/Week [...] Description 01/22/2025 3:30 PM EDT Office Visit [facility] 3rd Floor, [address] [place] [address] Karie Seals PA-C [address] [place] [address] 02/15/2025 2:00 PM EDT Appointment [facility] 30 [place] [address] Pedro Paez MD [address] [place] [address] 02/15/2025 3:00 PM EDT Office Visit [facility] 30 [place] [address] Pedro Paez MD [address] [place] [address] documented as of this encounter Visit Diagnoses [...] documented as of this encounter Care Teams Casino Cage Cashier Relationship Specialty Start Date End Date Leila Moran MD [address] [place] [address] PCP - General 04/22/17 Pedro Paez MD [address] [place] [address] [email or web address] Primary Oncologist Medical Oncology 07/08/20 Jessica Alvarado PA [address] [place] [address] [email or web address] Physician Solution Manager Oncology 07/19/20 12/15/20 Alley Nguyen CNP [address] [place] [address] [email or web address] Nurse Practitioner Oncology 06/18/21 documented as of this encounter Additional Source Comments The information contained in this document represents components of the legal health record. It is not the complete legal health record.[facility]
--- OUTSIDE RECORDS SUMMARY | 2024-12-12 11:29 | XMS_ITS | Encounter Summary ---
Author Organization [facility] Address [address] [place] [address] Phone Care Team Providers Care Street Flusher Driver Name Role Phone Leila Moran MD Primary Care Provider [phone] Pedro Paez MD Unavailable [phone] Jessica Alvarado Unavailable [phone] Alley Nguyen CNP Unavailable Reason for Referral * MRI/CAT Scan - Closed Specialty Diagnoses / Procedures Referred By Contac t Referred To Contact Radiology Diagnoses Left lower quadrant abdominal pain History of ulcerative colitis Procedures CT Abdomen/Pelvis Leila Moran MD Phone: tel: fax: [email or web address] Referral ID Status Reason Start Date Expiration Date Visits Re quested Visits Authorized [id number] Closed 12/21/2018 12/21/2019 1 1 Encounter Details Date Type Department Care Team (Late st Contact Info) Description 12/21/2018 Transcribe Orders Virtual Department 30 [place] [address] Leila Moran MD [address] [place] [phone] Left lower quadrant abdominal pain (Primary Dx); History of ulcerative colitis Social History Tobacco Use Types Packs/Day Years [...] Description 01/22/2025 3:30 PM EDT Office Visit [facility] [address] [place] [address] [address]rd Floor, [address] [place] [address] Karie Seals PA-C [address] [place] [address] 02/15/2025 2:00 PM EDT Appointment [facility] [address] [place] [address] Pedro Paez MD [address] [place] [address] 02/15/2025 3:00 PM EDT Office Visit [facility] 30 [place] [address] Pedro Paez MD [address] [place] [address] documented as of this encounter Results * CT ABDOMEN/PELVIS WITH CONTRAST (12/30/2018 10:14 AM EDT) Anatomical Region Laterality Modality Abdomen, Pelvis Computed Tomogra phy 12/30/2018 11:4 9 AM EDT Impressions 12/30/2018 12:01 PM EDT 1. No acute findings in the abdomen/pelvis, in particular on the left side. 2. Status post colectomy with right lower quadrant ileostomy. 3. Cholelithiasis. 4. Spondylolisthesis at L5-S1. 5. Probable nonobstructing punctate left renal stone. 6. Additional chronic findings as described above. TOTAL CTDIvol: 15.4 mGy POS - [id number] Narrative 12/30/2018 12:01 PM EDT EXAM: CT ABDOMEN/PELVIS WITH CONTRAST CT OF ABDOMEN AND PELVIS WITH INTRAVENOUS CONTRAST COMPARISON: None INDICATION: + PAIN- ABDOMINAL [SIGN/SX; SPECIFY SITE] ABDOMINAL PAIN LEFT SIDE, HISTORY OF ULCERATIVE COLITIS TECHNIQUE: CT scan of the abdomen and pelvis was performed following the intravenous administration of 100 cc of Omnipaque 240 and oral contrast. Coronal and sagittal reformatted images were generated. Automated exposure control utilized. FINDINGS: LOWER THORAX: No lung consolidation. No pleural effusion. HEPATOBILIARY: No hepatomegaly. No focal hepatic lesions. No extra- or intrahepatic ductal dilatation. Nondistended gallbladder contains a large 3.4 cm gallstone. SPLEEN: No splenomegaly. PANCREAS: Unremarkable. ADRENAL GLANDS: Nonspecific mild diffuse thickening of the left adrenal gland. No adrenal mass. KIDNEYS AND URETERS: Bilateral renal cysts. Kidneys enhance symmetrically. No hydronephrosis. Punctate calcification in the upper pole of the left kidney likely represents a nonobstructing renal stone. Ureters are decompressed. STOMACH/GI TRACT: Oral contrast reaches the ileostomy in the right lower quadrant. Patient is status post total colectomy. Small hiatal hernia. Stomach is decompressed. Small bowel loops are normal in caliber and unremarkable in appearance. PELVIC ORGANS/BLADDER: Urinary bladder is decompressed. There is a small vesical diverticulum in the left posterior wall. Mildly enlarged prostate gland. PERITONEUM AND RETROPERITONEUM: No free fluid, fluid collection or free air. LYMPH NODES: No bulky adenopathy. VESSELS: Moderate amount of atherosclerotic disease with prominent mural plaques and calcifications throughout the nonaneurysmal aorta and iliac arteries. Inferior vena cava is unremarkable. BONES AND SOFT TISSUES: Right lower quadrant ileostomy. Grade 1 anterolisthesis of L5 on S1 associated with bilateral pars defects. No acute or suspicious osseous abnormality. Procedure Note Rosalba Orona MD - 12/30/2018 EXAM: CT ABDOMEN/PELVIS WITH CONTRAST CT OF ABDOMEN AND PELVIS WITH INTRAVENOUS CONTRAST COMPARISON: None INDICATION: + PAIN- ABDOMINAL [SIGN/SX; SPECIFY SITE] ABDOMINAL PAIN LEFT SIDE, HISTORY OF ULCERATIVE COLITIS TECHNIQUE: CT scan of the abdomen and pelvis was performed following theintravenous administration of 100 cc of Omnipaque 240 and oral contrast.Coronal and sagittal reformatted images were generated. Automatedexposure control utilized. FINDINGS: LOWER THORAX: No lung consolidation. No pleural effusion. HEPATOBILIARY: No hepatomegaly. No focal hepatic lesions. No extra-or intrahepatic ductal dilatation. Nondistended gallbladder containsa large 3.4 cm gallstone. SPLEEN: No splenomegaly. PANCREAS: Unremarkable. ADRENAL GLANDS: Nonspecific mild diffuse thickening of the left adrenalgland. No adrenal mass. KIDNEYS AND URETERS: Bilateral renal cysts. Kidneys enhancesymmetrically. No hydronephrosis. Punctate calcification in the upper poleof the left kidney likely represents a nonobstructing renal stone. Uretersare decompressed. STOMACH/GI TRACT: Oral contrast reaches the ileostomy in the right lowerquadrant. Patient is status post total colectomy. Small hiatal hernia.Stomach is decompressed. Small bowel loops are normal in caliber andunremarkable in appearance. PELVIC ORGANS/BLADDER: Urinary bladder is decompressed. There is a smallvesical diverticulum in the left posterior wall. Mildly enlarged prostategland. PERITONEUM AND RETROPERITONEUM: No free fluid, fluid collection or freeair. LYMPH NODES: No bulky adenopathy. VESSELS: Moderate amount of atherosclerotic disease with prominent muralplaques and calcifications throughout the nonaneurysmal aorta and iliacarteries. Inferior vena cava is unremarkable. BONES AND SOFT TISSUES: Right lower quadrant ileostomy. Grade 1anterolisthesis of L5 on S1 associated with bilateral pars defects. Noacute or suspicious osseous abnormality. IMPRESSION: 1. No acute findings in the abdomen/pelvis, in particular on the leftside. 2. Status post colectomy with right lower quadrant ileostomy. 3. Cholelithiasis. 4. Spondylolisthesis at L5-S1. 5. Probable nonobstructing punctate left renal stone. 6. Additional chronic findings as described above. TOTAL CTDIvol: 15.4 mGy POS - [id number] Leila Morna MD IMG CT ABD/PELVIS Final Res ult documented in this encounter Visit Diagnoses Diagnosis Left lower quadrant abdominal pain- Primary History of ulcerative colitis Left lower quadrant abdominal pain History of ulcerative colitis documented in this encounter Additional Health Concerns [...] documented as of this encounter Care Teams Street Flusher Driver Relationship Specialty Start Date End Date Leila Moran MD [address] [place] [phone] [email or web address] PCP - General 04/22/17 Pedro Paez MD [address] [place] [address] [email or web address] Primary Oncologist Medical Oncology 07/08/20 Jessica Alvarado PA [address] [place] [address] [email or web address] Physician Poultry Hatchery Laborer Oncology 07/19/20 12/15/20 Alley Nguyen CNP [address] [place] [address] [email or web address] Nurse Practitioner Oncology 06/18/21 documented as of this encounter Additional Source Comments The information contained in this document represents components of the legal health record. It is not the complete legal health record.[facility]
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
--- OUTSIDE RECORDS SUMMARY | 2024-12-12 11:29 | XMS_ITS | Encounter Summary ---
Author Organization [facility] Address [address] [place] [address] Phone Care Team Providers Care Paper Baling Machine Operator Name Role Phone Leila Moran MD Primary Care Provider Pedro Paez MD Unavailable [phone] Jessica Alvarado Unavailable [phone] Alley Nguyen CNP Unavailable Encounter Details Date Type Department Care Team (Latest Contact Info) Description 05/24/2020 Transcribe Orders Virtual Department [address] [place] [address] Jessica Cruz DO [address] [place] [address] Exposure to SARS-associated coronavirus (Primary Dx) Social History Tobacco Use Types [...] Description 01/22/2025 3:30 PM EDT Office Visit [facility] [address] [place] [address] Karie Seals PA-C [address] [place] [address] 02/15/2025 2:00 PM EDT Appointment [facility] [address] [place] [address] Pedro Paez MD [address] [place] [address] 02/15/2025 3:00 PM EDT Office Visit [facility] [address] [place] [address] Pedro Paez MD [address] [place] [address] [email or web address] documented as of this encounter Visit Diagnoses Diagnosis Exposure to SARS-associated coronavirus- Primary documented in this encounter Additional Health Concerns Infection Onset Date Last Indicated Resolved Time CoV-Exposed Comment:Recent close contact documented in the COVID-19 PCR/PRO order 05/24/2020 05/24/2020 06/08/2020 1:[address] CoV-Risk 10/12/2020 10/12/2020 10/22/2020 1:24 AM EDT CDiff-Risk 10/06/2023 10/06/2023 10/06/2023 5:43 PM EDT CoV-Risk 11/14/2024 11/14/2024 11/25/2024 1:21 AM EDT documented as of this encounter Care Teams Paper Baling Machine Operator Relationship Specialty Start Date End Date Leila Moran MD [address] [place] [address] [email or web address] PCP - General 04/22/17 Pedro Paez MD [address] [place] [address] [email or web address] Primary Oncologist Medical Oncology 07/08/20 Jessica Alvarado PA [address] [place] [address] [email or web address] Physician Roll Clamp Operator Oncology 07/19/20 12/15/20 Alley Nguyen CNP [address] [place] [address] [email or web address] Nurse Practitioner Oncology 06/18/21 documented as of this encounter Additional Source Comments The information contained in this document represents components of the legal health record. It is not the complete legal health record.[facility]
--- OUTSIDE RECORDS SUMMARY | 2024-12-12 11:29 | XMS_ITS | Encounter Summary ---
Author Organization [facility] Address [address] [place] [address] Phone Care Team Providers Care Waiter Waitress Name Role Phone Leila Moran MD Primary Care Provider Pedro Paez MD Unavailable [phone] Jessica Alvarado Unavailable Alley Nguyen CNP Unavailable Reason for Referral * MRI/CAT Scan - Closed Specialty Diagnoses / Procedures Referred By Contac t Referred To Contact Radiology Diagnoses Esophageal mass Procedures NM PET CT Skull Base to Mid Thighs System, Provider Not In, PhD [facility] [address] [place] [address] Referral ID Status Reason Start Date Expiration Date Visits Re quested Visits Authorized [id number] Closed 05/29/2020 05/29/2021 1 1 Encounter Details Date Type Department Care Team (Late st Contact Info) Description 05/29/2020 Ancillary Orders Virtual Department [address] [place] [address] System, Provider Not In, PhD [employer] [address] [place] [address] Esophageal mass Social History Tobacco Use Types Packs/Day Years Used Date Smoking Tobacco: Former Cigarettes 1 [phone] Smokeless Tobacco: Never Alcohol Use Standard Drinks/Week [...] Description 01/22/2025 3:30 PM EDT Office Visit [facility] [address] [facility] 3rd Floor, [address] [place] [address] Karie Seals PA-C [address] [place] [address] 02/15/2025 2:00 PM EDT Appointment [facility] [address] [place] [address] Pedro Paez MD [address] [place] [address] 02/15/2025 3:00 PM EDT Office Visit [facility] [address] [place] [address] Pedro Paez MD [address] [place] [address] documented as of this encounter Results * NM PET CT Skull Base to Mid Thighs (05/30/2020 3:50 PM EST) Anatomical Region Laterality Modality Positron Emissio n Tomography (PET) Narrative 05/30/2020 3:49 PM EST [facility] PET IMAGING us Provider Not In System PhD IMG NM PET Final Result documented in this encounter Visit Diagnoses Diagnosis Esophageal mass Esophageal mass documented in this encounter Additional Health Concerns Infection Onset Date Last Indicated Resolved Time CoV-Exposed Comment:Recent close contact documented in the COVID-19 PCR/PRO order 05/24/2020 05/24/2020 06/08/2020 1:[address] CoV-Risk 10/12/2020 10/12/2020 10/22/2020 1:24 AM EDT CDiff-Risk 10/06/2023 10/06/2023 10/06/2023 5:43 PM EDT CoV-Risk 11/14/2024 11/14/2024 11/25/2024 1:21 AM EDT documented as of this encounter Care Teams Waiter Waitress Relationship Specialty Start Date End Date Leila Moran MD [address] [place] [address] PCP - General 04/22/17 Pedro Paez MD [address] [place] [address] Primary Oncologist Medical Oncology 07/08/20 Jessica Alvarado PA [address] [place] [phone] [email or web address] Physician Medical Imaging Director Oncology 07/19/20 12/15/20 Alley Nguyen CNP [address] [place] [address] [email or web address] Nurse Practitioner Oncology 06/18/21 documented as of this encounter Additional Source Comments The information contained in this document represents components of the legal health record. It is not the complete legal health record.[facility]
--- OUTSIDE RECORDS SUMMARY | 2024-12-12 11:29 | XMS_ITS | Encounter Summary ---
Author Organization [facility] Address [address] [place] [address] Phone Care Team Providers Care Obstetrics Gyn Physician Name Role Phone Leila Moran MD Primary Care Provider Pedro Paez MD Unavailable [phone] Jessica Alvarado Unavailable Alley Nguyen CNP Unavailable Encounter Details Date Type Department Care Team (Late st Contact Info) Description 09/10/2020 Procedure Pass [facility] Admitting Dept Virtual Department [address] [place] [address] Social History Tobacco Use Types Packs/Day Years [...] Description 01/22/2025 3:30 PM EDT Office Visit [facility] 3rd Floor, [address] [place] [address] Karie Seals PA-C [address] [place] [address] 02/15/2025 2:00 PM EDT Appointment [facility] [address] [place] [address] Pedro Paez MD [address] [place] [phone] 02/15/2025 3:00 PM EDT Office Visit [facility] [address] [place] [address] Pedro Paez MD [address] [place] [phone] documented as of this encounter Visit Diagnoses Not on filedocumented in this encounter Additional Health Concerns Infection Onset Date Last Indicated Resolved Time CoV-Risk 10/12/2020 10/12/2020 10/22/2020 1:24 AM EDT CDiff-Risk 10/06/2023 10/06/2023 10/06/2023 5:43 PM EDT CoV-Risk 11/14/2024 11/14/2024 11/25/2024 1:21 AM EDT documented as of this encounter Care Teams Obstetrics Gyn Physician Relationship Specialty Start Date End Date Leila Moran MD [address] [place] [address] PCP - General 04/22/17 Pedro Paez MD [address] [place] [address] Primary Oncologist Medical Oncology 07/08/20 Jessica Alvarado PA [address] [place] [phone] [email or web address] Physician Chartered Financial Analyst Oncology 07/19/20 12/15/20 Alley Nguyen CNP [address] [place] [address] [email or web address] Nurse Practitioner Oncology 06/18/21 documented as of this encounter Additional Source Comments The information contained in this document represents components of the legal health record. It is not the complete legal health record.[facility]
--- OUTSIDE RECORDS SUMMARY | 2024-12-12 11:29 | XMS_ITS | Encounter Summary ---
Author Organization [facility] Address [address] [place] [address] Phone Care Team Providers Care Automation Consultant Name Role Phone Leila Moran MD Primary Care Provider Pedro Paez MD Unavailable [phone] Jessica Alvarado Unavailable Alley Nguyen CNP Unavailable Encounter Details Date Type Department Care Team (Late st Contact Info) Description 12/22/2019 Transcribe Orders Virtual Department 30 [place] [address] Leila Moran MD [address] [place] [address] [email or web address] Shortness of breath (Primary Dx); Wheezing Social History Tobacco Use Types Packs/Day Years [...] Description 01/22/2025 3:30 PM EDT Office Visit [facility] [address] [facility] 3rd Floor, [address] [place] [address] Karie Seals PA-C [address] [place] [address] [email or web address] 02/15/2025 2:00 PM EDT Appointment [facility] Laboratory 30 [place] [address] Pedro Paez MD [address] [place] [address] 02/15/2025 3:00 PM EDT Office Visit [facility] 30 [place] [address] Pedro Paez MD 30 [place] [address] documented as of this encounter Results * Pulmonary Function Test Reason for Exam: Dyspnea/Shortness of Breath, Wheezing; Type of PFT Test: Lung Volumes, DLCO, Spirometry with bronchodilator; Performing Location: [facility] (01/23/2020 3:28 PM EDT) [facility] Signature FEV1 2.86 liters FVC 4.40 liters FEV1/FVC 65 % TLC 5.96 liters DLCO 21.2 ml/mmHg sec Anatomical Region Laterality Modality Other Impressions 01/23/2020 3:28 PM EDT PULMONARY FUNCTION STUDIES Full pulmonary function studies were performed on this 79 y.o. year-old male for evaluation of shortness of breath. Review of the medical record reveals that the patient is a past smoker. Prior pulmonary function studies are available for comparison, performed on 01/09/2016. SPIROMETRY: The FEV1 is normal at 2.86 L or 129% predicted. The FVC is normal at 4.40 L or 126% predicted. The FEV1/FVC ratio is impaired at 65%. After the administration of a bronchodilator agent, there is no significant change. FLOW-VOLUME LOOPS: Evaluation of the flow-volume loops reveals normal morphology of the inspiratory limb with mild scooping of the expiratory limb and blunting of the peak expiratory flows in keeping with the patient's obstructive lung disease. LUNG VOLUME MEASUREMENTS BY PLETHYSMOGRAPHY: The total lung capacity is normal at 5.96 L or 111% predicted. The functional residual capacity is normal at 2.45 L or 89% predicted. Of note, the ERV is markedly impaired, likely representing the imprint of body habitus. DIFFUSION CAPACITY: The diffusion capacity is normal at 21.2 mL/mmHg sec or 107% predicted. COMPARISON TO PRIOR STUDIES: When comparing to prior study from 01/09/2016, there has been interval decline in FEV1, FVC, and TLC which is likely age-related. Resting oxygen saturation is 95% on room air. IMPRESSION: Mild obstructive physiology as evidenced by impaired FEV1/FVC ratio and normal FEV1. No significant response to bronchodilator. Normal total lung capacity. Impaired ERV is likely secondary to patient's body habitus. Normal diffusing capacity. us Leila Moran MD PFT ORDERABLES Final Resul t documented in this encounter Visit Diagnoses Diagnosis Shortness of breath- Primary Wheezing Shortness of breath Wheezing documented in this encounter Additional Health Concerns [...] documented as of this encounter Care Teams Automation Consultant Relationship Specialty Start Date End Date Leila Moran MD [address] [place] [address] [email or web address] PCP - General 04/22/17 Pedro Paez MD [address] [place] [address] [email or web address] Primary Oncologist Medical Oncology 07/08/20 Jessica Alvarado PA [address] [place] [address] [email or web address] Physician Circle Saw Operator Oncology 07/19/20 12/15/20 Alley Nguyen CNP [address] [place] [address] [email or web address] Nurse Practitioner Oncology 06/18/21 documented as of this encounter Additional Source Comments The information contained in this document represents components of the legal health record. It is not the complete legal health record.[facility]
--- OUTSIDE RECORDS SUMMARY | 2024-12-12 11:29 | XMS_ITS | Encounter Summary ---
Author Organization [facility] Address [address] [place] [address] Phone Care Team Providers Care Jewel Staker Name Role Phone Leila Moran MD Primary Care Provider Pedro Paez MD Unavailable [phone] Jessica Alvarado Unavailable [phone] Alley Nguyen CNP Unavailable Encounter Details Date Type Department Care Team (Late st Contact Info) Description 09/09/2020 Procedure Pass [facility], Ct Scan - [address] [address] Social History Tobacco Use Types Packs/Day Years Used Date Smoking Tobacco: Former Cigarettes 1 352 - 6568 Smokeless Tobacco: Never Alcohol Use Standard Drinks/Week [...] Date of Assessment Author No Risk Indicated 09/09/2020 9:37 AM EDT Priyanka Souza, HAL * Henry Suicide Severity Rating Scale (Screener/Recent Self-Report) Question Answer Date of Assessment Author 1. Wish to be (Past 1 Month) No 09/09/2020 9:37 AM EDT Ana Ennis, HAL 2. Non-Specific Active Suici tristin Thoughts (Past 1 Month) No 09/09/2020 9:37 AM EDT Joseph Ennis RN 6. Suicidal Behavior (Lifetime) No 9:37 AM EDT Priyanka Ennis, HAL documented as of this encounter Plan of Treatment Upcoming Encounters Date Type Department Care Team (Late st Contact Info) Description 01/22/2025 3:30 PM EDT Office Visit [facility] [address] [place] [address] 3rd Floor, [address] [place] [address] Karie Seals PA-C [address] [place] [address] 02/15/2025 2:00 PM EDT Appointment [facility] 30 [place] [address] Pedro Paez MD [address] [place] [address] 02/15/2025 3:00 PM EDT Office Visit [facility] 30 [place] [address] Pedro Paez MD [address] [place] [address] documented as of this encounter Visit Diagnoses Not on filedocumented in this encounter Additional Health Concerns Infection Onset Date Last Indicated Resolved Time CoV-Risk 10/12/2020 10/12/2020 10/22/2020 1:24 AM EDT CDiff-Risk 10/06/2023 10/06/2023 10/06/2023 5:43 PM EDT CoV-Risk 11/14/2024 11/14/2024 11/25/2024 1:21 AM EDT documented as of this encounter Care Teams Jewel Staker Relationship Specialty Start Date End Date Leila Moran MD [address] [place] [address] [email or web address] PCP - General 04/22/17 Pedro Paez MD [address] [place] [address] [email or web address] Primary Oncologist Medical Oncology 07/08/20 Jessica Alvarado PA [address] [place] [address] [email or web address] Physician Facility Supervisor Oncology 07/19/20 12/15/20 Alley Nguyen CNP [address] [place] [address] [email or web address] Nurse Practitioner Oncology 06/18/21 documented as of this encounter Additional Source Comments The information contained in this document represents components of the legal health record. It is not the complete legal health record.[facility]
--- OUTSIDE RECORDS SUMMARY | 2024-12-12 11:29 | XMS_ITS | Encounter Summary ---
Author Organization [facility] Address [address] [place] [address] Phone Care Team Providers Care Mushroom Press Operator Name Role Phone Leila Moran MD Primary Care Provider [phone] Pedro Paez MD Unavailable [phone] Jessica Alvarado Unavailable [phone] Alley Nguyen CNP Unavailable Encounter Details Date Type Department Care Team (Late st Contact Info) Description 12/22/2019 Transcribe Orders Virtual Department 30 [place] [address] Leila Moran MD [address] [place] [address] [email or web address] SOB (shortness of breath) (Primary Dx) Social History Tobacco Use Types [...] Description 01/22/2025 3:30 PM EDT Office Visit [facility] [address] [facility], [address] [place] [address] Karie Seals PA-C 50 [place] [address] 02/15/2025 2:00 PM EDT Appointment [facility] 30 [place] [address] Pedro Paez MD 30 [place] [address] [email or web address] 02/15/2025 3:00 PM EDT Office Visit [facility] 30 [place] [address] Pedro Paez MD 30 [place] [address] documented as of this encounter Results * XR CHEST PA AND LATERAL 2 VIEWS (12/27/2019 2:01 PM EDT) Anatomical Region Laterality Modality Chest Computed Radiogr aphy 12/27/2019 2:40 PM EDT Impressions 12/27/2019 2:41 PM EDT No acute chest disease. Narrative 12/27/2019 2:41 PM EDT HISTORY: As above. COMPARISON: 11/14/2014. CHEST RADIOGRAPH FINDINGS: Views: 3. Lines/Tubes: None. Heart and Mediastinum: Normal. Lungs: Stable mild hyperinflation. Lungs are clear. Bones: Chronic mild thoracic kyphosis, endplate spurring and osteopenia. Soft Tissues: No acute findings. Procedure Note Johnny Bueno MD - 12/27/2019 HISTORY: As above. COMPARISON: 11/14/2014. CHEST RADIOGRAPH FINDINGS: Views: 3. Lines/Tubes: None. Heart and Mediastinum: Normal. Lungs: Stable mild hyperinflation. Lungs are clear. Bones: Chronic mild thoracic kyphosis, endplate spurring andosteopenia. Soft Tissues: No acute findings. IMPRESSION: No acute chest disease. Leila Moran MD IMG XR CHEST Final Resul t documented in this encounter Visit Diagnoses Diagnosis SOB (shortness of breath)- Primary Shortness of breath SOB (shortness of breath) Shortness of breath documented in this encounter Additional Health Concerns [...] documented as of this encounter Care Teams Mushroom Press Operator Relationship Specialty Start Date End Date Leila Moran MD [address] [place] [phone] [email or web address] PCP - General 04/22/17 Pedro Paez MD [address] [place] [address] [email or web address] Primary Oncologist Medical Oncology 07/08/20 Jessica Alvarado PA [address] [place] [address] [email or web address] Physician Skid [address] Man Oncology 07/19/20 12/15/20 Alley Nguyen CNP [address] [place] [address] [email or web address] Nurse Practitioner Oncology 06/18/21 documented as of this encounter Additional Source Comments The information contained in this document represents components of the legal health record. It is not the complete legal health record.[facility]
--- OUTSIDE RECORDS SUMMARY | 2024-12-12 11:29 | XMS_ITS | Encounter Summary ---
Author Organization [facility] Address [address] [place] [address] Phone Care Team Providers Care Manufacturing Production Technician Name Role Phone Leila Moran MD Primary Care Provider Pedro Paez MD Unavailable [phone] Jessica Alvarado Unavailable Alley Nguyen CNP Unavailable Encounter Details Date Type Department Care Team (Late st Contact Info) Description 12/14/2018 Transcribe Orders [facility] Laboratory [address] [id number] Leila Moran MD [address] [place] [address] [email or web address] Lipoid degeneration (Primary Dx); Malignant neoplasm of prostate; Fatigue, unspecified type Social History Tobacco Use Types [...] Description 01/22/2025 3:30 PM EDT Office Visit [facility] [address] [facility] 3rd Floor, [address] [place] [address] Karie Seals PA-C [address] [place] [address] [email or web address] 02/15/2025 2:00 PM EDT Appointment [facility] [address] [place] [address] Pedro Paez MD [address] [place] [address] 02/15/2025 3:00 PM EDT Office Visit [facility] 30 [place] [address] Pedro Paez MD [address] [place] [address] documented as of this encounter Results * Lyme screen with reflex to Western blot, blood (12/14/2018 9:44 AM EDT) Lyme AB IgG Negative Negative [facility] Lyme AB IgM Negative Negative [facility] Blood 12/14/2018 9:44 AM EDT 12/14/2018 9:49 AM EDT us Leila Moran MD LAB BLOOD ORDERABLES Final Result [address] [address] * Magnesium (12/14/2018 9:44 AM EDT) Pathologist [facility] MAGNESIUM 1.9 1.6 - 2.6 mg/dL [facility] Blood 12/14/2018 9:44 AM EDT 12/14/2018 9:49 AM EDT Result Jina Moran MD LAB BLOOD ORDERABLES Final Result Performing Organization Address [facility] Co de Phone Number [address] [address] * Vitamin B12 (12/14/2018 9:44 AM EDT) VITAMIN B12 670 232 - 1,245 pg/mL [facility] Blood 12/14/2018 9:44 AM EDT 12/14/2018 9:49 AM EDT us Leila Moran MD LAB BLOOD ORDERABLES Final Result Performing Organization Address [facility] Co de Phone Number [address] [address] * (ABNORMAL) PSA (screening) (12/14/2018 9:44 AM EDT) PSA 5.59(H) 0 - 4.00 ng/mL [facility] Blood 12/14/2018 9:44 AM EDT 12/14/2018 9:49 AM EDT us Leila Moran MD LAB BLOOD ORDERABLES Final Result Performing Organization Address [facility] Co de Phone Number [address] [address] * 25-OH vitamin D (12/14/2018 9:44 AM EDT) 25 OH VIT D (TOTAL) 35 30 - 60 ng/mL [facility] Blood 12/14/2018 9:44 AM EDT 12/14/2018 9:49 AM EDT us Leila Moran MD LAB BLOOD ORDERABLES Final Result Performing Organization Address [facility] Co de Phone Number [address] [place] [address] * (ABNORMAL) CBC (12/14/2018 9:44 AM EDT) WBC 7.95 3.40 - 11.20 K/uL [facility] RBC 4.93 4.50 - 5.50 M/uL [facility] HGB 15.3 13.0 - 17.0 g/dL [facility] HCT 44.7 40.0 - 51.0 % [facility] PLT 273 130 - 400 K/uL [facility] MCV 90.7 79.0 - 98.0 fL [facility] MCH 31.0 27.0 - 34.8 pg [facility] MCHC 34.2 31.5 - 36.0 g/dL [facility] RDW 13.4 10.8 - 14.6 % [facility] MPV 9.1(L) 9.4 - 12.4 fl [facility] NRBC 0.00 0.00 /100 WBCs [facility] ABSOLUTE NRBC 0.00 0.00 K/uL [facility] Blood 12/14/2018 9:44 AM EDT 12/14/2018 9:49 AM EDT Leila Moran MD LAB BLOOD ORDERABLES Final Result [address] [address] * (ABNORMAL) Lipid panel (12/14/2018 9:44 AM EDT) HDL 39 mg/dL [facility] Comment: Interpretation <40 mg/dL: Low HDL cholesterol (major risk factor for CHD) Greater than or equal to 60 mg/dL: High HDL cholesterol ( negative risk factor for CHD) HDL - cholesterol is affected by a number of factors, e.g. smoking, excerise, hormones, sex and age. CHOLESTEROL 193 0 - 240 mg/dL [facility] TRIGLYCERIDES 177(H) 30 - 160 mg/dL [facility] LDL 119 50 - 129 mg/dL [facility] Comment: LDL levels in terms of risk for coronary heart disease: <100 mg/dL: Optimal 100-129 mg/dL: Near or above optimal 130-159 mg/dL: Borderline high 160-189 mg/dL: High >190 mg/dL: Very High CARDIAC RISK RATIO 4.9 3.4 - 5.0 [facility] Blood 12/14/2018 9:44 AM EDT 12/14/2018 9:49 AM EDT us Leila Moran MD LAB BLOOD ORDERABLES Final Result [facility] 30 [place] [address] * Comprehensive metabolic panel (12/14/2018 9:44 AM EDT) SODIUM 141 133 - 146 mmol/L [facility] POTASSIUM 4.2 3.3 - 5.1 mmol/L [facility] CHLORIDE 104 96 - 108 mmol/L [facility] CO2 25 21 - 35 mmol/L [facility] BUN 17 6 - 19 mg/dL [facility] CREATININE 1.00 0.5 - 1.5 mg/dL [facility] GLUCOSE 97 70 - 99 mg/dL [facility] ALBUMIN 4.2 3.9 - 4.8 g/dL [facility] TOTAL PROTEIN 7.0 6.5 - 8.0 g/dL [facility] CALCIUM 9.8 8.4 - 10.3 mg/dL [facility] ALKALINE PHOSPHATASE 63 39 - 117 U/L [facility] TOTAL BILIRUBIN 0.5 0.0 - 1.2 mg/dL [facility] AST 18 0 - 37 U/L [facility] ALT 22 0 - 40 U/L [facility] GLOBULIN 2.8 1 - 4.8 g/dL [facility] EGFR 71 >59 mL/min/1.7 3m2 [facility] Comment:If patient is black, multiply result by 1.159. Estimated glomerular filtration rate calculated using the CKD-EPI equation. 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 Malignant neoplasm of prostate Fatigue, unspecified type documented in this encounter Additional [...] documented as of this encounter Care Teams Manufacturing Production Technician Relationship Specialty Start Date End Date Leila Moran MD [address] [place] [phone] [email or web address] PCP - General 04/22/17 Pedro Paez MD [address] [place] [address] [email or web address] Primary Oncologist Medical Oncology 07/08/20 Jessica Alvarado PA [address] [place] [address] [email or web address] Physician Lamp Wirer Oncology 07/19/20 12/15/20 Alley Nguyen CNP [address] [place] [address] (work) Nurse Practitioner Oncology 06/18/21 documented as of this encounter Additional Source Comments The information contained in this document represents components of the legal health record. It is not the complete legal health record.[facility]
--- OUTSIDE RECORDS SUMMARY | 2024-12-12 11:29 | XMS_ITS | Encounter Summary ---
Author Organization [facility] Address [address] [place] [address] Phone Care Team Providers Care Assistant Director Of Nursing Name Role Phone Leila Moran MD Primary Care Provider Pedro Paez MD Unavailable [phone] Jessica Alvarado Unavailable [phone] Alley Nguyen CNP Unavailable Encounter Details Date Type Department Care Team (Latest Contact Info) Description 05/17/2020 Transcribe Orders Virtual Department 30 [place] [address] Chepe Vasquez MD [address] [place] [address] Encounter for preprocedure screening laboratory testing for COVID-19 (Primary Dx) Social History Tobacco Use Types [...] Description 01/22/2025 3:30 PM EDT Office Visit [facility] [address] [place] [address] 3rd Floor, [address] [place] [address] Karie Seals PA-C [address] [place] [address] [email or web address] 02/15/2025 2:00 PM EDT Appointment [facility] [address] [place] [address] Pedro Paez MD [address] [place] [address] 02/15/2025 3:00 PM EDT Office Visit [facility] at [address] [address] Pedro Paez MD [address] [place] [address] [email or web address] documented as of this encounter Results * COVID-19 PCR Order (05/18/2020 7:58 AM EST) COVID-19 Comment [id number] [facility] COVID Testing Status Sent to [facility] 05/18/2020 7:58 AM EST 05/18/2020 11:49 AM EST us Chepe Vasquez MD BODY FLUIDS AND STOOLS ORD ERABLES Final Result [address] [address] documented in this encounter Visit Diagnoses Diagnosis Encounter for preprocedure screening laboratory testing for COVID-19- Primary documented in this encounter Additional Health Concerns Infection Onset Date Last Indicated Resolved Time CoV-Exposed Comment:Recent close contact documented in the COVID-19 PCR/PRO order 05/24/2020 05/24/2020 06/08/2020 1:[address] CoV-Risk 10/12/2020 10/12/2020 10/22/2020 1:24 AM EDT CDiff-Risk 10/06/2023 10/06/2023 10/06/2023 5:43 PM EDT CoV-Risk 11/14/2024 11/14/2024 11/25/2024 1:21 AM EDT documented as of this encounter Care Teams Assistant Director Of Nursing Relationship Specialty Start Date End Date Leila Moran MD [address] [place] [address] [email or web address] PCP - General 04/22/17 Pedro Paez MD [address] [place] [address] [email or web address] Primary Oncologist Medical Oncology 07/08/20 Jessica Alvarado PA [address] [place] [address] [email or web address] Physician Seed Mill Superintendent Oncology 07/19/20 12/15/20 Alley Nguyen CNP [address] [place] [address] [email or web address] Nurse Practitioner Oncology 06/18/21 documented as of this encounter Additional Source Comments The information contained in this document represents components of the legal health record. It is not the complete legal health record.[facility]
--- OUTSIDE RECORDS SUMMARY | 2024-12-12 11:29 | XMS_ITS | Encounter Summary ---
Author Organization [facility] Address [address] [place] [address] Phone Care Team Providers Care Pens And Pencils Repairer Name Role Phone Leila Moran MD Primary Care Provider [phone] Pedro Paez MD Unavailable [phone] Jessica Alvarado Unavailable [phone] Alley Nguyen CNP Unavailable Reason for Visit * Reason Onset Date Comments new pt for surveillance 11/09/2018 Encounter Details Date Type Department Care Team (Late st Contact Info) Description 11/09/2018 Telephone [facility] [address] [place] [address] Karlos Kolb DO [address] [place] [address] [email or web address] new pt for surveillance Social History Tobacco Use Types Packs/Day Years [...] Description 01/22/2025 3:30 PM EDT Office Visit [facility] [address] [place] [address] Karie Seals PA-C [address] [place] [address] 02/15/2025 2:00 PM EDT Appointment [facility] [address] [place] [address] Pedro Paez MD [address] [place] [address] 02/15/2025 3:00 PM EDT Office Visit [facility] [address] [place] [address] Pedro Paez MD [address] [place] [address] documented as of this encounter Visit Diagnoses [...] documented as of this encounter Care Teams Pens And Pencils Repairer Relationship Specialty Start Date End Date Leila Moran MD [address] [place] [address] [email or web address] PCP - General 04/22/17 Pedro Paez MD [address] [place] [address] [email or web address] Primary Oncologist Medical Oncology 07/08/20 Jessica Alvarado PA [address] [place] [address] [email or web address] Physician Hematology Nurse Oncology 07/19/20 12/15/20 Alley Nguyen CNP [address] [place] [address] [email or web address] Nurse Practitioner Oncology 06/18/21 documented as of this encounter Additional Source Comments The information contained in this document represents components of the legal health record. It is not the complete legal health record.[facility]
--- OUTSIDE RECORDS SUMMARY | 2024-12-12 11:29 | XMS_ITS | Encounter Summary ---
Author Organization [facility] Address [address] [place] [address] Phone Care Team Providers Care Md Pediatric Allergist Name Role Phone Leila Moran MD Primary Care Provider Pedro Paez MD Unavailable [phone] Jessica Alvarado Unavailable Alley Nguyen CNP Unavailable Encounter Details Date Type Department Care Team (Late st Contact Info) Description 09/23/2018 Transcribe Orders [facility] [address] [phone] Leila Moran MD [address] [place] [address] [phone] [email or web address] Hypertension, unspecified type (Primary Dx); Prostate cancer Social History Tobacco Use Types Packs/Day [...] Description 01/22/2025 3:30 PM EDT Office Visit [facility] [address] [place] [address] Karie Seals PA-C [address] [place] [address] 02/15/2025 2:00 PM EDT Appointment [facility] [address] [place] [address] Pedro Paez MD [address] [place] [address] 02/15/2025 3:00 PM EDT Office Visit [facility] at [address] [address] Pedro Paez MD [address] [place] [address] [email or web address] documented as of this encounter Results * (ABNORMAL) PSA (screening) (09/23/2018 9:41 AM EDT) PSA 4.73(H) 0 - 4.00 ng/mL [facility] Blood 09/23/2018 9:41 AM EDT 09/23/2018 9:46 AM EDT Leila Moran MD LAB BLOOD ORDERABLES Final Result [address] [address] * CBC (09/23/2018 9:41 AM EDT) WBC 7.46 3.40 - 11.20 K/uL [facility] RBC 5.10 4.50 - 5.50 M/uL [facility] HGB 15.8 13.0 - 17.0 g/dL [facility] HCT 46.2 40.0 - 51.0 % [facility] PLT 268 130 - 400 K/uL [facility] MCV 90.6 79.0 - 98.0 fL [facility] MCH 31.0 27.0 - 34.8 pg [facility] MCHC 34.2 31.5 - 36.0 g/dL [facility] RDW 13.0 10.8 - 14.6 % [facility] MPV 9.6 9.4 - 12.4 fl [facility] NRBC 0.00 0.00 /100 WBCs [facility] ABSOLUTE NRBC 0.00 0.00 K/uL [facility] Blood 09/23/2018 9:41 AM EDT 09/23/2018 9:46 AM EDT Leila Moran MD LAB BLOOD ORDERABLES Final Result Performing Organization Address City/State/[facility] Co de Phone Number [address] [address] * (ABNORMAL) Lipid panel (09/23/2018 9:41 AM EDT) HDL 37 mg/dL [facility] Comment: Interpretation <40 mg/dL: Low HDL cholesterol (major risk factor for CHD) Greater than or equal to 60 mg/dL: High HDL cholesterol ( negative risk factor for CHD) HDL - cholesterol is affected by a number of factors, e.g. smoking, excerise, hormones, sex and age. CHOLESTEROL 183 0 - 240 mg/dL [facility] TRIGLYCERIDES 214(H) 30 - 160 mg/dL [facility] LDL 103 50 - 129 mg/dL [facility] Comment: LDL levels in terms of risk for coronary heart disease: <100 mg/dL: Optimal 100-129 mg/dL: Near or above optimal 130-159 mg/dL: Borderline high 160-189 mg/dL: High >190 mg/dL: Very High CARDIAC RISK RATIO 4.9 3.4 - 5.0 C [facility] Blood 09/23/2018 9:41 AM EDT 09/23/2018 9:46 AM EDT us Leila Moran MD LAB BLOOD ORDERABLES Final Result Performing Organization Address City/[facility]/ZIP Co de Phone Number [address] [address] * Comprehensive metabolic panel (09/23/2018 9:41 AM EDT) SODIUM 144 133 - 146 mmol/L [facility] POTASSIUM 4.1 3.3 - 5.1 mmol/L [facility] CHLORIDE 108 96 - 108 mmol/L [facility] CO2 25 21 - 35 mmol/L [facility] BUN 14 6 - 19 mg/dL [facility] CREATININE 1.10 0.5 - 1.5 mg/dL [facility] GLUCOSE 87 70 - 99 mg/dL [facility] ALBUMIN 4.1 3.9 - 4.8 g/dL [facility] TOTAL PROTEIN 7.0 6.5 - 8.0 g/dL [facility] CALCIUM 9.5 8.4 - 10.3 mg/dL [facility] ALKALINE PHOSPHATASE 67 39 - 117 U/L [facility] TOTAL BILIRUBIN 0.7 0.0 - 1.2 mg/dL [facility] AST 19 0 - 37 U/L [facility] ALT 21 0 - 40 U/L [facility] GLOBULIN 2.9 1 - 4.8 g/dL [facility] EGFR 64 >59 mL/min/1.7 3m2 [facility] Comment:If patient is black, multiply result by 1.159. Estimated glomerular filtration rate calculated using the CKD-EPI equation. ANION GAP 15 10 - 20 mmol/L [facility] Blood 09/23/2018 9:41 AM EDT 09/23/2018 9:46 AM EDT us Leila Moran MD LAB BLOOD ORDERABLES Final Result Performing Organization Address [facility]/ZIP Co de Phone Number [address] [address] documented in this encounter Visit Diagnoses Diagnosis Hypertension, unspecified type- Primary Prostate cancer Malignant neoplasm of prostate documented in this [...] documented as of this encounter Care Teams Md Pediatric Allergist Relationship Specialty Start Date End Date Leila Moran MD [address] [place] [address] [email or web address] PCP - General 04/22/17 Pedro Paez MD [address] [place] [address] [email or web address] Primary Oncologist Medical Oncology 07/08/20 Jessica Alvarado PA [address] [place] [address] [email or web address] Physician Head Sulfide Operator Oncology 07/19/20 12/15/20 Alley Nguyen CNP [address] [place] [address] [email or web address] Nurse Practitioner Oncology 06/18/21 documented as of this encounter Additional Source Comments The information contained in this document represents components of the legal health record. It is not the complete legal health record.[facility]
--- OUTSIDE RECORDS SUMMARY | 2024-12-12 11:29 | XMS_ITS | Encounter Summary ---
Author Organization [facility] Address [address] [place] [address] Phone Care Team Providers Care Cloth Washer Name Role Phone Leila Moran MD Primary Care Provider Pedro Paez MD Unavailable [phone] Jessica Alvarado Unavailable Alley Nguyen CNP Unavailable Encounter Details Date Type Department Care Team (Late st Contact Info) Description 12/26/2019 Transcribe Orders [facility] Laboratory [address] [phone] Leila Moran MD [address] [place] [address] [phone] [email or web address] Lipoid degeneration (Primary Dx); Prostate cancer; Fatigue, unspecified type; Hypertension, unspecified type; Anemia due to vitamin B12 deficiency, unspecified B12 deficiency type; Vitamin D deficiency, unspecified Social History Tobacco Use Types Packs/Day Years Used Date Smoking Tobacco: Former Cigarettes Q uit: 1981 Smokeless Tobacco: Never Alcohol Use Standard [...] Description 01/22/2025 3:30 PM EDT Office Visit [facility] [address] [place] [address] 3rd Floor, [address] [place] [address] Karie Seals PA-C [address] [place] [address] [email or web address] 02/15/2025 2:00 PM EDT Appointment [facility] [address] [place] [address] Pedro Paez MD [address] [place] [address] 02/15/2025 3:00 PM EDT Office Visit [facility] at [address] [address] Pedro Paez MD [address] [place] [address] documented as of this encounter Results * Magnesium (12/26/2019 9:42 AM EDT) MAGNESIUM 2.0 1.6 - 2.6 mg/dL [facility] Blood 12/26/2019 9:42 AM EDT 12/26/2019 9:55 AM EDT us Leila Moran MD LAB BLOOD ORDERABLES Final Result [address] [address] * 25-OH vitamin D (12/26/2019 9:42 AM EDT) Pathologist [facility] 25 [place] VIT D (TOTAL) 33 30 - 60 ng/mL [facility] Blood 12/26/2019 9:42 AM EDT 12/26/2019 9:55 AM EDT us Leila Moran MD LAB BLOOD ORDERABLES Final Result Performing Organization Address [facility] Co de Phone Number [address] [address] * Vitamin B12 (12/26/2019 9:42 AM EDT) [facility] VITAMIN B12 464 232 - 1,245 pg/mL [facility] Blood 12/26/2019 9:42 AM EDT 12/26/2019 9:55 AM EDT us Leila Moran MD LAB BLOOD ORDERABLES Final Result Performing Organization Address [facility] Co de Phone Number [address] [address] * (ABNORMAL) PSA (screening) (12/26/2019 9:42 AM EDT) [facility] PSA 6.01(H) 0 - 4.00 ng/mL [facility] Blood 12/26/2019 9:42 AM EDT 12/26/2019 9:55 AM EDT us Leila Moran MD LAB BLOOD ORDERABLES Final Result Performing Organization Address [facility] Co de Phone Number [address] [address] * Lyme screen with reflex to Western blot, blood (12/26/2019 9:42 AM EDT) [facility] Lyme AB IgG Negative Negative [facility] Lyme AB IgM Negative Negative [facility] Blood 12/26/2019 9:42 AM EDT 12/26/2019 9:55 AM EDT us Leila Moran MD LAB BLOOD ORDERABLES Final Result Performing Organization Address [facility] Co de Phone Number [address] [address] * CBC (12/26/2019 9:42 AM EDT) WBC 8.40 4.00 - 11.00 K/uL [facility] Comment:Note Reference Range updates to all CBC and Differential results. RBC 4.58 3.90 - 5.69 M/uL [facility] HGB 14.1 12.4 - 17.3 g/dL [facility] Comment:Note updated Referen ce Ranges for all CBC and Differential results. HCT 41.9 37.0 - 51.0 % [facility] PLT 318 140 - 430 K/uL [facility] MCV 91.5 78.0 - 97.0 fL [facility] MCH 30.8 25.0 - 33.0 pg [facility] MCHC 33.7 32.0 - 36.0 g/dL [facility] RDW 13.4 11.0 - 15.0 % [facility] MPV 9.3 8.4 - 12.8 fl [facility] NRBC 0.00 0 /100 WBCs [facility] ABSOLUTE NRBC 0.00 0 K/uL [facility] Blood 12/26/2019 9:42 AM EDT 12/26/2019 9:55 AM EDT Leila Moran MD LAB BLOOD ORDERABLES Final Result Performing Organization Address City/[facility]/ZIP Co de Phone Number [address] [address] * (ABNORMAL) Comprehensive metabolic panel (12/26/2019 9:42 AM EDT) Pathologist [facility] SODIUM 142 133 - 146 mmol/L [facility] POTASSIUM 4.1 3.3 - 5.1 mmol/L [facility] CHLORIDE 107 96 - 108 mmol/L [facility] CO2 24 21 - 35 mmol/L [facility] BUN 14 6 - 19 mg/dL [facility] CREATININE 1.20 0.5 - 1.5 mg/dL [facility] GLUCOSE 92 70 - 99 mg/dL [facility] ALBUMIN 4.2 3.9 - 4.8 g/dL [facility] TOTAL PROTEIN 6.9 6.5 - 8.0 g/dL [facility] CALCIUM 9.3 8.4 - 10.3 mg/dL [facility] ALKALINE PHOSPHATASE 74 39 - 117 U/L [facility] TOTAL BILIRUBIN 0.4 0.0 - 1.2 mg/dL [facility] AST 23 0 - 37 U/L [facility] ALT 23 0 - 40 U/L [facility] GLOBULIN 2.7 1 - 4.8 g/dL [facility] EGFR 56(L) >59 mL/min/1.7 3m2 [facility] Comment:Estimated glomerular filtration rate calculated using the CKD-EPI equation. ANION GAP 15 10 - 20 mmol/L [facility] Blood 12/26/2019 9:42 AM EDT 12/26/2019 9:55 AM EDT us Leila Moran MD LAB BLOOD ORDERABLES Final Result [facility] [address] [place], [place] [phone] * (ABNORMAL) Lipid panel (12/26/2019 9:42 AM EDT) HDL 34 mg/dL [facility] Comment: Interpretation <40 mg/dL: Low HDL cholesterol (major risk factor for CHD) Greater than or equal to 60 mg/dL: High HDL cholesterol ( negative risk factor for CHD) HDL - cholesterol is affected by a number of factors, e.g. smoking, excerise, hormones, sex and age. CHOLESTEROL 180 0 - 240 mg/dL [facility] TRIGLYCERIDES 154 30 - 160 mg/dL [facility] LDL 115 50 - 129 mg/dL [facility] Comment: LDL levels in terms of risk for coronary heart disease: <100 mg/dL: Optimal 100-129 mg/dL: Near or above optimal 130-159 mg/dL: Borderline high 160-189 mg/dL: High >190 mg/dL: Very High CARDIAC RISK RATIO 5.3(H) 3.4 - 5.0 C [facility] Blood 12/26/2019 9:42 AM EDT 12/26/2019 9:55 AM EDT Leila Moran MD LAB BLOOD ORDERABLES Final Result [facility] [address] [place] [address] documented in this encounter Visit Diagnoses Diagnosis Lipoid degeneration- Primary Other disorders of lipoid metabolism Prostate cancer Malignant neoplasm of prostate Fatigue, unspecified type Hypertension, unspecified type Anemia due to vitamin B12 deficiency, unspecified B12 deficiency type Vitamin D deficiency, unspecified documented in this encounter Additional Health Concerns [...] documented as of this encounter Care Teams Cloth Washer Relationship Specialty Start Date End Date Leila Moran MD [address] [place] [phone] [email or web address] PCP - General 04/22/17 Pedro Paez MD [address] [place] [address] [email or web address] Primary Oncologist Medical Oncology 07/08/20 Jessica Alvarado PA [address] [place] [address] [email or web address] Physician Bread Icer Oncology 07/19/20 12/15/20 Alley Nguyen CNP [address] [place] [address] [email or web address] Nurse Practitioner Oncology 06/18/21 documented as of this encounter Additional Source Comments The information contained in this document represents components of the legal health record. It is not the complete legal health record.[facility]
== END 2024-12-12 11:44 | disposition home or self-care (01) ==
LOC: HO.HUSH 10:37
PROVIDERS: PCP Internal Medicine; Visit Provider Urology
DX: N40.1 Benign prostatic hyperplasia with lower urinary tract symptoms (principal); R33.9 Retention of urine, unspecified; N32.89 Other specified disorders of bladder; Z13.9 Encounter for screening, unspecified
CPT/HCPCS: 99214; G2211

== ENCOUNTER → 2024-12-12 10:37 | Outpatient (BNVA) | payer MEDICARE, BC, SELFPAY | PROVIDERS: PCP Internal Medicine; Visit Provider Urology | DX: N40.1 Benign prostatic hyperplasia with lower urinary tract symptoms (principal); R33.9 Retention of urine, unspecified; N32.89 Other specified disorders of bladder | CPT/HCPCS: 51798; 81003; 99212 ==